=== PATIENT | male | born 1955 | race Two or more races ===

== ENCOUNTER 2020-11-10 14:37 | Inpatient (IN) | payer MEDICAID, SELFPAY ==
[2020-11-10 15:49] VITALS: BMI 25.7
[2020-11-10 16:38] LABS: Glucose, Whole Blood 236 mg/dL (60-115)
[2020-11-10] MEDS: Insulin Lispro 100 UNIT/ML 3 ML VIAL SUBCUT ×2 (17:43→21:55)
[2020-11-10 17:56] LABS: Cholesterol 204 mg/dL; HDL Cholesterol 31 mg/dL; LDL Cholesterol Calculated 128 mg/dl; Triglycerides 228 mg/dL
[2020-11-10 18:00] VITALS: BP 127/66; PULSE 99; RESP 16; TEMP 36.8; O2SAT 97
[2020-11-10] MEDS: NaPROXEN 500 MG TABLET PO (18:02)
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
[2020-11-10 21:11] LABS: Glucose, Whole Blood 176 mg/dL (60-115)
[2020-11-10] MEDS: traZODone HCL 50 MG TABLET PO (22:18)
[2020-11-11 07:24] LABS: Free T4 (Free Thyroxine) 0.94 ng/dL (0.71-1.85); Thyroid Stimulating Hormone 0.35 uIU/mL (0.32-4.0)
[2020-11-11 07:48] LABS: Estimated Average Glucose 174 mg/dL; Hemoglobin A1c % 7.7 %
[2020-11-11 09:00] VITALS: BP 143/66; PULSE 71; RESP 16; TEMP 36.4; O2SAT 98
[2020-11-11 09:02] VITALS: BP 127/66; PULSE 99; O2SAT 97
[2020-11-11 09:08] LABS: Glucose, Whole Blood 152 mg/dL (60-115)
[2020-11-11] MEDS: Insulin Lispro 100 UNIT/ML 3 ML VIAL SUBCUT ×3 (09:50→19:52)
[2020-11-11 10:11] LABS: Vitamin B12 540 pg/mL (200-900)
[2020-11-11] MEDS: Escitalopram Oxalate 10 MG TABLET PO (10:24)
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
[2020-11-11 12:36] LABS: Glucose, Whole Blood 245 mg/dL (60-115)
--- NOTE | 2020-11-11 13:36 | PC.NURSE ---
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
--- NOTE | 2020-11-11 15:11 | HO.HSGERICON ---
History of Present Illness Data of Consult Service Date: 11/11/20 Requesting physician: Jacqueline Tsai Primary Care Provider: Petra Alcantara NP HPI 65-year-old male with past medical history of diabetes who is a admitted to [facility] for PTSD and depression. Patient is Farsi speaking which I was able to speak to him in [facility]. He reports chronic right ear pain that is been going on for 3-4 years, he denies any changes. Reports chronic decreased hearing, he reports that he needs glasses but has now money to buy a new one. Denies any chest pain, no shortness of breath, no abdominal pain nausea or vomiting no diarrhea constipation. No urinary symptoms. No lower extremity edema. Vitals reviewed within normal range Done on admission reviewed no significant abnormality except a slightly elevated glucose Review of Systems Review of Systems: Yes all other systems are reviewed and are negative [facility] Medical History PTSD (post-traumatic stress disorder) Social History Household Members: Family and Children Household Members Other:: daughters and Housing: Unknown / Unable to assess Do you presently have visiting nurse or other home services: Yes ([facility] -[phone]) Patient Tobacco Use Status: Tobacco use Unknown Use of substances other than those prescribed or required for medical reasons: No Currently Displaying Signs/Symptoms of Drug Intoxication Withdrawal: No Any prior treatment program specific to substance use: No Have you been hit, kicked, punched, or otherwise hurt by someone within the past year? If so, by whom?: No Do you feel safe in your current relationship?: Yes Is there a partner from a previous relationship who is making you feel unsafe now?: No Are you made to feel afraid or neglected: No Advance Directives: No Advance Directives Information Provided: No Do you have thoughts of harming others: None Do you have a plan to hurt others: No Plan Recently lost weight without trying: Unsure Eating poorly because of decreased appetite: No Nutrition Risks: Diabetes new onset/Uncontrolled Poor oral hygiene: No service: No Sexual orientation: Straight/Heterosexual Meds Allergies Allergy/AdvReac Type Severity Reaction Status Date / Time No Known Allergies Allergy Verified 11/10/20 15:51 Active Medications: Current Medications Generic Name Dose Route Start Last Admin Trade Name Boq PRN Reason Stop Dose Admin Acetaminophen 650 mg 11/10/20 15:55 Acetaminophen 325 Mg Tablet PO Q6H PRN Headache/Pain Mild Scale (1-3) Al Hydroxide/Mg Hydroxide 30 ml 11/10/20 15:55 Magnesium Hydrox/Alum Hydrox 30 Ml Oral.Susp PO Q6H PRN Heartburn/Nausea Escitalopram Oxalate 10 mg 11/11/20 09:00 11/11/20 10:24 Escitalopram Oxalate 10 Mg Tablet PO 10 mg DAILY DUNIA Administration Hydroxyzine HCl 25 mg 11/10/20 15:55 Hydroxyzine Hcl 25 Mg Tablet PO Q6H PRN Anxiety Insulin Human Lispro 0 unit 11/10/20 21:00 11/11/20 12:38 Insulin Lispro 100 Unit/Ml 3 Ml Vial SUBCUT 4 unit QIDACHS [facility] Administration Protocol Magnesium Hydroxide 30 ml 11/10/20 15:55 Milk Of Magnesia 30 Ml Oral.Susp PO DAILY PRN Constipation Naproxen 500 mg 11/10/20 16:28 11/10/20 18:02 Naproxen 500 Mg Tablet PO 500 mg BID PRN Administration Pain, Moderate (Pain Scale 4-6 Trazodone HCl 50 mg 11/10/20 15:55 11/10/20 22:18 Trazodone Hcl 50 Mg Tablet PO 50 mg BEDTIME PRN Administration Insomnia Results Labs Labs: Laboratory Results - last 24 hr 11/10/20 11/10/20 11/10/20 16:33 17:19 17:19 POC Glucose 236 H Estimat Average Glucose 174 Hemoglobin A1c % 7.7 Triglycerides 228 Cholesterol 204 LDL Cholesterol, Calc 128 HDL Cholesterol 31 Vitamin B12 TSH Free T4 11/10/20 11/11/20 11/11/20 21:07 06:22 06:22 POC Glucose 176 H Estimat Average Glucose Hemoglobin A1c % Triglycerides Cholesterol LDL Cholesterol, Calc HDL Cholesterol Vitamin B12 540 TSH 0.35 Free T4 0.94 11/11/20 11/11/20 08:59 12:30 POC Glucose 152 H 245 H Estimat Average Glucose Hemoglobin A1c % Triglycerides Cholesterol LDL Cholesterol, Calc HDL Cholesterol Vitamin B12 TSH Free T4 Assessment and Plan (1) Diabetes: Status: Acute (2) Ear pain: Status: Acute 65-year-old male with past medical history of diabetes admitted for [facility] for management of PTSD # diabetes - continue low-dose sliding scale insulin - diabetic diet - patient's glucose does not appear to be significantly elevated - will continue to monitor with glucose POC QIDAC # PTSD and depression - management per psych team # ear pain - patient reports chronic ear pain for past 3-4 years - has significant wax - will order debrox ear drops thank you for this consutl
[2020-11-11 17:12] LABS: Glucose, Whole Blood 124 mg/dL (60-115)
[2020-11-11 18:20] VITALS: BP 131/60; PULSE 102; RESP 18; TEMP 36.6; O2SAT 97
[2020-11-11 19:51] LABS: Glucose, Whole Blood 233 mg/dL (60-115)
[2020-11-11] MEDS: Carbamide Peroxide 6.5% Otic 15 ML DRPBTL 5 DROP EAR-BOTH (20:19)
[2020-11-12 06:00] VITALS: BP 135/63; PULSE 73; RESP 18; TEMP 36.6; O2SAT 96
[2020-11-12 08:04] LABS: Glucose, Whole Blood 120 mg/dL (60-115)
[2020-11-12] MEDS: Escitalopram Oxalate 10 MG TABLET PO (08:18)
[2020-11-12] MEDS: Carbamide Peroxide 6.5% Otic 15 ML DRPBTL 5 DROP EAR-BOTH ×2 (08:34→20:06)
[2020-11-12 12:31] LABS: Glucose, Whole Blood 261 mg/dL (60-115)
[2020-11-12] MEDS: Insulin Lispro 100 UNIT/ML 3 ML VIAL SUBCUT (12:33)
--- NOTE | 2020-11-12 15:39 | HO.PSYCHPN ---
Subjective Subjective Date of Service: 11/12/20 Reason For Visit: Major Depressive Disorder Recurrent Subjective Notes: Conditional Voluntary Healthcare Proxy: No Guardianship: No Medical Problems Affecting Mental Status: No Interim History: Patient seen and discussed with team. Patient evaluated this morning with diplomatic interpreter/translator services and upon interview he reports I feel fine today. Says he only feels anxious when he thinks about stressors at home. He says he has a broken heart because his daughters have not called or visited and nobody needs him, feels he has nowhere to go. He says if he is not thinking about it, he is feeling a bit better. He knows that he has court on 11/16/2020 due to filing a restraining order, says he does not plan on going back to their apartment and would like to work with his SW at [facility] to get alternate housing. He has been eating, showering, attending to ADLs. He is med adherent and tolerating meds well. In the milieu, patient is safe and appropriate in behavior. Denies SI/SIB/HI upon inquiry. Denies irritability or assaultive ideation. Says he feels safe. Medication Compliance: Yes Side effects from medications: No Attending Groups: No Review of Systems He had an episode of hypoglycemia today, stating he felt dizzy and his heart was racing. His BG was 46 and he was given juice and crackers. He stated feeling increased anxiety due to this. A hospitalist consult was ordered due to his blood glucose being difficult to control per nurse report. He denies having hx of cardiac issues or SOB. No headache reported. He continues to report leg pain but is ambulating with a cane. Mental Status Exam Mental Status Exam Narrative: Well groomed, good hygiene, normal body habitus, in hospital gown, lying down. Good eye contact, attentive. No Tics or Tremors. No abnormal involuntary movements. Calm, cooperative, engaged. Non-pressured speech, spontaneous with regular rate and rhythm, normal volume and prosody. No prolonged speech latency or dysarthria. Mood is ?low,? affect is euthymic. Denies SI/SIB/HI upon inquiry. Denies A/VH or delusional thought content. Thoughts are coherent, organized. No known cognitive or memory impairment, although he reports poor recent memory i.e. does not remember what he had for breakfast. Insight/ Judgment fair and adequate. Diagnostics Vital Signs (24Hr): Vital Signs - 24 hr 11/11/20 18:20 11/12/20 06:00 Temperature 97.9 F 97.9 F Pulse Rate 102 H 73 Respiratory Rate 18 18 Blood Pressure 131/60 135/63 Pulse Oximetry 97 96 Body Mass Index 25.7 Labs Labs: Laboratory Results - last 48 hr 11/10/20 11/10/20 11/10/20 16:33 17:19 17:19 POC Glucose 236 H Estimat Average Glucose 174 Hemoglobin A1c % 7.7 Triglycerides 228 Cholesterol 204 LDL Cholesterol, Calc 128 HDL Cholesterol 31 Vitamin B12 TSH Free T4 11/10/20 11/11/20 11/11/20 21:07 06:22 06:22 POC Glucose 176 H Estimat Average Glucose Hemoglobin A1c % Triglycerides Cholesterol LDL Cholesterol, Calc HDL Cholesterol Vitamin B12 540 TSH 0.35 Free T4 0.94 11/11/20 11/11/20 11/11/20 08:59 12:30 17:07 POC Glucose 152 H 245 H 124 H Estimat Average Glucose Hemoglobin A1c % Triglycerides Cholesterol LDL Cholesterol, Calc HDL Cholesterol Vitamin B12 TSH Free T4 11/11/20 11/12/20 11/12/20 19:46 07:59 12:21 POC Glucose 233 H 120 H 261 H Estimat Average Glucose Hemoglobin A1c % Triglycerides Cholesterol LDL Cholesterol, Calc HDL Cholesterol Vitamin B12 TSH Free T4 Medications Medications Current Medications Generic Name Dose Route Start Last Admin Trade Name Freq PRN Reason Stop Dose Admin Acetaminophen 650 mg 11/10/20 15:55 Acetaminophen 325 Mg Tablet PO Q6H PRN Headache/Pain Mild Scale (1-3) Al Hydroxide/Mg Hydroxide 30 ml 11/10/20 15:55 Magnesium Hydrox/Alum Hydrox 30 Ml Oral.Susp PO Q6H PRN Heartburn/Nausea Carbamide Peroxide 5 drop 11/11/20 21:00 11/12/20 08:34 Carbamide Peroxide 6.5% Otic 15 Ml Drpbtl EAR-BOTH 11/15/20 15:23 5 drop BID DUNIA Administration Escitalopram Oxalate 10 mg 11/11/20 09:00 11/12/20 08:18 Escitalopram Oxalate 10 Mg Tablet PO 10 mg DAILY DUNIA Administration Hydroxyzine HCl 25 mg 11/10/20 15:55 Hydroxyzine Hcl 25 Mg Tablet PO Q6H PRN Anxiety Insulin Human Lispro 0 unit 11/10/20 21:00 11/12/20 12:33 Insulin Lispro 100 Unit/Ml 3 Ml Vial SUBCUT 6 unit QIDACHS [facility] Administration Protocol Magnesium Hydroxide 30 ml 11/10/20 15:55 Milk Of Magnesia 30 Ml Oral.Susp PO DAILY PRN Constipation Naproxen 500 mg 11/10/20 16:28 11/10/20 18:02 Naproxen 500 Mg Tablet PO 500 mg BID PRN Administration Pain, Moderate (Pain Scale 4-6 Trazodone HCl 50 mg 11/10/20 15:55 11/10/20 22:18 Trazodone Hcl 50 Mg Tablet PO 50 mg BEDTIME PRN Administration Insomnia Allergies Allergies Allergy/AdvReac Type Severity Reaction Status Date / Time No Known Allergies Allergy Verified 11/10/20 15:51 Assessment & Plan Assessment & Plan (1) Diabetes: Status: Acute Code(s): E11.9 - Type 2 diabetes mellitus without complications (2) Ear pain: Status: Acute Code(s): H92.09 - Otalgia, unspecified ear (3) Depression: Status: Acute Code(s): F32.9 - Major depressive disorder, single episode, unspecified (4) PTSD (post-traumatic stress disorder): Status: Acute Code(s): F43.10 - Post-traumatic stress disorder, unspecified Assessment and Plan: Bennett is a 65 year old male who presents with symptoms of depression, irritability, anxiety, flashbacks, hyperarousal, lack of sleep, perseverative thoughts, and nightmares. He [place] [facility] [place] a verbal altercation with his in the context of ongoing marital issues, financial stress, housing instability, and lack of psychiatric treatment. He does not speak Kyrgyz and has language barriers living in [place] He has no past psychiatric treatment, [place] with his and three daughters. He has past trauma [place], [place]. He has multiple co-morbid medical issues including insulin dependent diabetes, hx of head injury, and leg pain. He is currently accepting medication management for symptoms of PTSD and insomnia. Lexapro was started at [facility] ED. 11/12: Bennett reports positive benefit on medications, tolerating them well. Continues to endorse sx of anxiety and feeling sad when he thinks about his stressors. Sleep is improved on trazodone. Plan: 1. continue on lexapro 10 mg QD for sx of PTSD and trazodone 50 mg QHS PRN for insomnia. Monitor response to medications. 2. Monitor for safety in the milieu. 3. will work on housing, legal issues 4. Discharge on stabilization. Patient seen. Chart reviewed. Discussed with team. Greater than 50% of the session was spent on counseling and/or coordination of care Patient educated on: medication risk/benefits Reason for contiued inpatient stay Substantial Risk for: med/psych decompensation
[2020-11-12 15:49] LABS: Glucose, Whole Blood 140 mg/dL (60-115)
[2020-11-12 15:49] LABS: Glucose, Whole Blood 46 mg/dL (60-115)
[2020-11-12 15:49] LABS: Glucose, Whole Blood 82 mg/dL (60-115)
--- NOTE | 2020-11-12 15:57 | PC.NURSE ---
At 1505 patient was noted by MHC to be pointing to his head and chest. MHC took VS: BP 130/64, HR 80, O2 SAT 98%, Temp 98.0 f, RR 18. Terese patient accounting representative utilized, PT reported dizziness and decreased vision. POC checked : 46 at 1512. Patient was given 2 servings of OJ and a turkey sandwich, rechecked POC at 1524: 82, at that time patient indicated some relief from dizziness. Patient ate another turkey sandwich and drank another oj - recheck POC at 1542: 140. At that time patient was reporting vision at baseline and dizziness relieved. Jacqueline Tsai NP informed, hospitalist consult ordered. Dr Bucio informed,
[2020-11-12 17:31] LABS: Glucose, Whole Blood 242 mg/dL (60-115)
--- NOTE | 2020-11-12 17:37 | PC.NURSE ---
I spoke with Dr Bucio regarding today's uncontrolled blood sugars. He told me to hold insulin prior to evening meal now and reassess POC at HS
[2020-11-12 18:00] VITALS: BP 132/66; PULSE 85; RESP 16; TEMP 36.6; O2SAT 98
[2020-11-12 20:18] LABS: Glucose, Whole Blood 213 mg/dL (60-115)
[2020-11-13 08:58] VITALS: BP 155/75; PULSE 73; RESP 16; TEMP 36.8; O2SAT 98
[2020-11-13 08:59] LABS: Glucose, Whole Blood 134 mg/dL (60-115)
[2020-11-13] MEDS: Escitalopram Oxalate 10 MG TABLET PO (09:01)
[2020-11-13] MEDS: Carbamide Peroxide 6.5% Otic 15 ML DRPBTL 5 DROP EAR-BOTH ×2 (09:01→20:26)
[2020-11-13 12:38] LABS: Glucose, Whole Blood 221 mg/dL (60-115)
[2020-11-13] MEDS: Insulin Lispro 100 UNIT/ML 3 ML VIAL SUBCUT ×2 (12:45→17:42)
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
[2020-11-13 17:38] LABS: Glucose, Whole Blood 197 mg/dL (60-115)
[2020-11-13 20:25] LABS: Glucose, Whole Blood 214 mg/dL (60-115)
[2020-11-13 20:32] VITALS: BP 183/79; PULSE 73; TEMP 36.7
[2020-11-14 08:54] LABS: Glucose, Whole Blood 128 mg/dL (60-115)
[2020-11-14 09:28] VITALS: BP 132/65; PULSE 71; RESP 16; TEMP 36.6; O2SAT 98
[2020-11-14] MEDS: Escitalopram Oxalate 10 MG TABLET PO (09:36)
[2020-11-14] MEDS: Carbamide Peroxide 6.5% Otic 15 ML DRPBTL 5 DROP EAR-BOTH ×2 (09:36→22:11)
[2020-11-14 12:51] LABS: Glucose, Whole Blood 207 mg/dL (60-115)
[2020-11-14] MEDS: Insulin Lispro 100 UNIT/ML 3 ML VIAL SUBCUT ×2 (12:54→22:09)
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
[2020-11-14 17:45] LABS: Glucose, Whole Blood 145 mg/dL (60-115)
[2020-11-14 20:21] VITALS: BP 152/71; PULSE 84; RESP 20; TEMP 36.7; O2SAT 93
[2020-11-14 21:59] LABS: Glucose, Whole Blood 271 mg/dL (60-115)
[2020-11-14] MEDS: traZODone HCL 50 MG TABLET PO (22:12)
[2020-11-15 06:00] VITALS: BP 124/67; PULSE 89; RESP 16; TEMP 36.9; O2SAT 96
[2020-11-15 08:17] LABS: Glucose, Whole Blood 113 mg/dL (60-115)
[2020-11-15] MEDS: Escitalopram Oxalate 10 MG TABLET PO (09:09)
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
[2020-11-15 13:25] LABS: Glucose, Whole Blood 202 mg/dL (60-115)
[2020-11-15] MEDS: Insulin Lispro 100 UNIT/ML 3 ML VIAL SUBCUT ×2 (13:26→18:02)
[2020-11-15] MEDS: Carbamide Peroxide 6.5% Otic 15 ML DRPBTL 5 DROP EAR-BOTH (14:06)
[2020-11-15 17:34] LABS: Glucose, Whole Blood 174 mg/dL (60-115)
[2020-11-15 20:00] VITALS: BP 134/63; PULSE 80; RESP 20; TEMP 36.8; O2SAT 97
[2020-11-15 20:28] LABS: Glucose, Whole Blood 102 mg/dL (60-115)
[2020-11-15] MEDS: traZODone HCL 50 MG TABLET PO (21:18)
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
[2020-11-16 08:15] VITALS: BP 161/72; PULSE 84; RESP 20; TEMP 36.7; O2SAT 96
[2020-11-16] MEDS: Escitalopram Oxalate 10 MG TABLET PO (08:24)
[2020-11-16 10:33] LABS: Glucose, Whole Blood 125 mg/dL (60-115)
[2020-11-16 12:14] LABS: Glucose, Whole Blood 247 mg/dL (60-115)
[2020-11-16] MEDS: Insulin Lispro 100 UNIT/ML 3 ML VIAL SUBCUT ×2 (12:22→21:17)
[2020-11-16] MEDS: NaPROXEN 500 MG TABLET PO (12:23)
--- NOTE | 2020-11-16 13:40 | PC.NURSE ---
Brief evaluation initially on arrival, pt pleasant. cooperative w/ care. Prior to lunch pt assessed w/ kersey department supervisor present. Pt reports sleeplessness, generalized pain r/t to lack of sleep. Pt denies HI, reports some hopeless thoughts re: situation w/ and housing but also appears to be future oriented, stating 'I just want some peace, then I will be fine.' Pt hopeful that if from , he will meet someone else.
[2020-11-16 16:52] LABS: Glucose, Whole Blood 109 mg/dL (60-115)
[2020-11-16 21:16] LABS: Glucose, Whole Blood 232 mg/dL (60-115)
[2020-11-16] MEDS: traZODone HCL 50 MG TABLET PO (21:19)
[2020-11-16] MEDS: Acetaminophen 325 MG TABLET 650 MG PO (21:43)
[2020-11-16 21:46] VITALS: BP 146/68; PULSE 91; TEMP 36.8; O2SAT 91
--- NOTE | 2020-11-17 08:19 | P.PNPSI_ITS ---
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 Pt with brighter affect thankful about care provided by nursing. He reports tooth pain relief with tylenol. States he has not been to dentist in 2 years. No signs of infection. He reports he wouldn't hurt a fly and not sure why is filing for restraining order. He states he never wanted to her and that it was an arrange marriage. He understands there is a restraining order, he does not plan to go to the house nor contact . He denies SI/HI. He does note he doesn't have any support from family or friends in the [place]. He does note feeling lonely now that he doesn't have support from nor children. He has been mostly in his bed. No behavioral concerns. Review of Systems Review of Systems Yes all other systems are reviewed and are negative Mental Status Exam Mental Status Exam Narrative: Well groomed, good hygiene, normal body habitus, sitting in bed. Good eye contact, attentive. No Tics or Tremors. No abnormal involuntary movements. somewhat excited and hypermotoric, cooperative, engaged. spontaneous speech, increased in amount, with regular rate and rhythm, normal volume and prosody. decr speech latency. Mood is euthymic, affect is full range, hyper-intense, mod- labile. Thoughts appear to be coherent, organized. Diagnostics Vital Signs (24Hr): Vital Signs - 24 hr 11/19/20 08:54 11/19/20 23:03 Temperature 98.0 F 97.8 F Pulse Rate 71 89 Respiratory Rate 18 Blood Pressure 129/67 144/79 H Pulse Oximetry 97 Body Mass Index 25.7 Labs Labs: Laboratory Results - last 48 hr 11/18/20 11/18/20 11/18/20 08:12 12:29 16:59 POC Glucose 133 H 284 H 191 H 11/18/20 11/19/20 11/19/20 20:24 08:47 12:32 POC Glucose 254 H 145 H 281 H 11/19/20 11/19/20 17:42 22:00 POC Glucose 161 H 257 H Medications Medications Current Medications Generic Name Dose Route Start Last Admin Trade Name Freq PRN Reason Stop Dose Admin Acetaminophen 650 mg 11/10/20 15:55 08/13/21 22:02 Acetaminophen 325 Mg Tablet PO 650 mg Q6H PRN Administration Headache/Pain Mild Scale (1-3) Al Hydroxide/Mg Hydroxide 30 ml 11/10/20 15:55 11/18/20 17:20 Magnesium Hydrox/Alum Hydrox 30 Ml Oral.Susp PO 30 ml Q6H PRN Administration Heartburn/Nausea Escitalopram Oxalate 10 mg 11/11/20 09:00 11/19/20 08:37 Escitalopram Oxalate 10 Mg Tablet PO 10 mg DAILY DUNIA Administration Hydroxyzine HCl 25 mg 11/10/20 15:55 Hydroxyzine Hcl 25 Mg Tablet PO Q6H PRN Anxiety Insulin Human Lispro 0 unit 11/10/20 21:00 11/19/20 22:10 Insulin Lispro 100 Unit/Ml 3 Ml Vial SUBCUT 10 unit QIDACHS [facility] Administration Protocol Magnesium Hydroxide 30 ml 11/10/20 15:55 11/17/20 13:59 Milk Of Magnesia 30 Ml Oral.Susp PO 30 ml DAILY PRN Administration Constipation Naproxen 500 mg 11/10/20 16:28 11/16/20 12:23 Naproxen 500 Mg Tablet PO 500 mg BID PRN Administration Pain, Moderate (Pain Scale 4-6 Trazodone HCl 100 mg 11/17/20 21:00 11/19/20 22:02 Trazodone Hcl 100 Mg Tablet PO 100 mg BEDTIME DUNIA Administration Allergies Allergies Allergy/AdvReac Type Severity Reaction Status Date / Time No Known Allergies Allergy Verified 11/10/20 15:51 Assessment & Plan Assessment & Plan (1) Depression: Status: Acute Code(s): F32.9 - Major depressive disorder, single episode, unspecified (2) PTSD (post-traumatic stress disorder): Status: Acute Code(s): F43.10 - Post-traumatic stress disorder, unspecified (3) Diabetes: Status: Acute Code(s): E11.9 - Type 2 diabetes mellitus without complications (4) Ear pain: Status: Acute Code(s): H92.09 - Otalgia, unspecified ear Assessment and Plan: Bennett is a 65 year old male who presents with symptoms of depression, irritability, anxiety, flashbacks, hyperarousal, lack of sleep, perseverative thoughts, and nightmares. He was brought to [facility] following a verbal altercation with his in the context of ongoing marital issues, financial stress, housing instability, and lack of psychiatric treatment. He does not speak Yemeni and has language barriers living in [place] He has no past psychiatric treatment, [place] with his and three daughters. He has past trauma [place], [place]. He has multiple co-morbid medical issues including insulin dependent diabetes, hx of head injury, and leg pain. He is currently accepting medication management for symptoms of PTSD and insomnia. Lexapro was started at [facility] ED. 11/12: Bennett reports positive benefit on medications, tolerating them well. Continues to endorse sx of anxiety and feeling sad when he thinks about his stressors. Sleep is improved on trazodone. Plan: 1. continue on lexapro 10 mg QD for sx of PTSD and trazodone 50 mg QHS PRN for insomnia. Monitor response to medications. 2. Monitor for safety in the milieu. 3. SW will work on housing, legal issues 4. Discharge on stabilization. Patient seen. Chart reviewed. Discussed with team. Greater than 50% of the session was spent on counseling and/or coordination of c are Reason for contiued inpatient stay Substantial Risk for: harm to self and harm to others
[2020-11-17 08:30] VITALS: BP 120/67; PULSE 72; RESP 16; TEMP 36.6; O2SAT 98
[2020-11-17 08:36] LABS: Glucose, Whole Blood 116 mg/dL (60-115)
[2020-11-17] MEDS: Escitalopram Oxalate 10 MG TABLET PO (09:00)
[2020-11-17] MEDS: Acetaminophen 325 MG TABLET 650 MG PO (09:18)
[2020-11-17 12:18] LABS: Glucose, Whole Blood 260 mg/dL (60-115)
[2020-11-17] MEDS: Insulin Lispro 100 UNIT/ML 3 ML VIAL SUBCUT ×2 (12:47→17:47)
[2020-11-17] MEDS: Milk of Magnesia 30 ML ORAL.SUSP PO (13:59)
[2020-11-17 17:29] LABS: Glucose, Whole Blood 169 mg/dL (60-115)
[2020-11-17 20:57] LABS: Glucose, Whole Blood 157 mg/dL (60-115)
[2020-11-17] MEDS: traZODone HCL 100 MG TABLET PO (20:57)
[2020-11-17 20:59] VITALS: BP 162/75; PULSE 77; TEMP 36.8; O2SAT 96
[2020-11-18 08:15] VITALS: BP 163/76; PULSE 81; RESP 18; TEMP 36.7; O2SAT 96
[2020-11-18] MEDS: Escitalopram Oxalate 10 MG TABLET PO (08:17)
--- NOTE | 2020-11-18 08:21 | P.PNPSI_ITS ---
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 Pt with brighter affect thankful about care provided by nursing and in unit. He reports tooth pain relief with tylenol. States he has not been to dentist in 2 years. No signs of infection. He reports he wouldn't hurt a fly and not sure why is filing for restraining order. He states he never wanted to her and that it was an arrange marriage. He understands there is a restraining order, he does not plan to go to the house nor contact . He denies SI/HI. He does note he doesn't have any support from family or friends [place] He does note feeling lonely now that he doesn't have support from nor children. He has been mostly in his bed. No behavioral concerns. Review of Systems Review of Systems Yes all other systems are reviewed and are negative Mental Status Exam Mental Status Exam Narrative: Well groomed, good hygiene, normal body habitus, sitting in bed. Good eye contact, attentive. No Tics or Tremors. No abnormal involuntary movements. somewhat excited and hypermotoric, cooperative, engaged. spontaneous speech, increased in amount, with regular rate and rhythm, normal volume and prosody. decr speech latency. Mood is euthymic, affect is full range, hyper-intense, mod- labile. Thoughts appear to be coherent, organized. Diagnostics Vital Signs (24Hr): Vital Signs - 24 hr 11/19/20 08:54 11/19/20 23:03 Temperature 98.0 F 97.8 F Pulse Rate 71 89 Respiratory Rate 18 Blood Pressure 129/67 144/79 H Pulse Oximetry 97 Body Mass Index 25.7 Labs Labs: Laboratory Results - last 48 hr 11/18/20 11/18/20 11/18/20 08:12 12:29 16:59 POC Glucose 133 H 284 H 191 H 11/18/20 11/19/20 11/19/20 20:24 08:47 12:32 POC Glucose 254 H 145 H 281 H 11/19/20 11/19/20 17:42 22:00 POC Glucose 161 H 257 H Medications Medications Current Medications Generic Name Dose Route Start Last Admin Trade Name Freq PRN Reason Stop Dose Admin Acetaminophen 650 mg 11/10/20 15:55 11/19/20 22:02 Acetaminophen 325 Mg Tablet PO 650 mg Q6H PRN Administration Headache/Pain Mild Scale (1-3) Al Hydroxide/Mg Hydroxide 30 ml 11/10/20 15:55 11/18/20 17:20 Magnesium Hydrox/Alum Hydrox 30 Ml Oral.Susp PO 30 ml Q6H PRN Administration Heartburn/Nausea Escitalopram Oxalate 10 mg 11/11/20 09:00 11/19/20 08:37 Escitalopram Oxalate 10 Mg Tablet PO 10 mg DAILY DUNIA Administration Hydroxyzine HCl 25 mg 11/10/20 15:55 Hydroxyzine Hcl 25 Mg Tablet PO Q6H PRN Anxiety Insulin Human Lispro 0 unit 11/10/20 21:00 11/19/20 22:10 Insulin Lispro 100 Unit/Ml 3 Ml Vial SUBCUT 10 unit QIDACHS [facility] Administration Protocol Magnesium Hydroxide 30 ml 11/10/20 15:55 11/17/20 13:59 Milk Of Magnesia 30 Ml Oral.Susp PO 30 ml DAILY PRN Administration Constipation Naproxen 500 mg 11/10/20 16:28 11/16/20 12:23 Naproxen 500 Mg Tablet PO 500 mg BID PRN Administration Pain, Moderate (Pain Scale 4-6 Trazodone HCl 100 mg 11/17/20 21:00 11/19/20 22:02 Trazodone Hcl 100 Mg Tablet PO 100 mg BEDTIME DUNIA Administration Allergies Allergies Allergy/AdvReac Type Severity Reaction Status Date / Time No Known Allergies Allergy Verified 11/10/20 15:51 Assessment & Plan Assessment & Plan (1) Depression: Status: Acute Code(s): F32.9 - Major depressive disorder, single episode, unspecified (2) PTSD (post-traumatic stress disorder): Status: Acute Code(s): F43.10 - Post-traumatic stress disorder, unspecified (3) Diabetes: Status: Acute Code(s): E11.9 - Type 2 diabetes mellitus without complications (4) Ear pain: Status: Acute Code(s): H92.09 - Otalgia, unspecified ear Assessment and Plan: Bennett is a 65 year old male who presents with symptoms of depression, irritability, anxiety, flashbacks, hyperarousal, lack of sleep, perseverative thoughts, and nightmares. He was brought to [facility] following a verbal altercation with his in the context of ongoing marital issues, financial stress, housing instability, and lack of psychiatric treatment. He does not speak Tristanian and has language barriers [place] He has no past psychiatric treatment, [place] with his and three daughters. [place] has [place], [place]. He has multiple co-morbid medical issues including insulin dependent diabetes, hx of head injury, and leg pain. He is currently accepting medication management for symptoms of PTSD and insomnia. Lexapro was started at [facility] ED. 11/12: Bennett reports positive benefit on medications, tolerating them well. Continues to endorse sx of anxiety and feeling sad when he thinks about his stressors. Sleep is improved on trazodone. Plan: 1. continue on lexapro 10 mg QD for sx of PTSD and trazodone 50 mg QHS PRN for insomnia. Monitor response to medications. 2. Monitor for safety in the milieu. 3. SW will work on housing, legal issues 4. Discharge on stabilization. Patient seen. Chart reviewed. Discussed with team. Greater than 50% of the session was spent on counseling and/or coordination of care Reason for contiued inpatient stay Substantial Risk for: harm to self and harm to others
--- NOTE | 2020-11-18 08:22 | P.PNPSI_ITS ---
Subjective Subjective Date of Service: 11/20/20 Reason For Visit: Major Depressive Disorder Recurrent Interim History: Pt seen with coater associate (voice through ipad). Pt continues to present with brighter affect, thankful about care provided by nursing and in unit. He reports tooth pain relief with tylenol. States he has not been to dentist in 2 years. No signs of infection. He reports he wouldn't hurt a fly and not sure why is filing for restraining order. He states he never wanted to her and that it was an arrange marriage. He understands there is a restraining order, he does not plan to go to the house nor contact . He denies SI/HI. He does note he doesn't have any support from family or friends [place]. He does note feeling lonely now that he doesn't have support from nor children. He has been mostly in his bed. No behavioral concerns. Review of Systems Review of Systems Yes all other systems are reviewed and are negative Mental Status Exam Mental Status Exam Narrative: Well groomed, good hygiene, normal body habitus, sitting in bed. Good eye contact, attentive. No Tics or Tremors. No abnormal involuntary movements. Behavior: cooperative, engaged. spontaneous speech, increased in amount, with regular rate and rhythm, normal volume and prosody. Mood is euthymic, affect is full range. Thoughts appear to be coherent, organized. Diagnostics Vital Signs (24Hr): Vital Signs - 24 hr 11/19/20 08:54 11/19/20 23:03 Temperature 98.0 F 97.8 F Pulse Rate 71 89 Respiratory Rate 18 Blood Pressure 129/67 144/79 H Pulse Oximetry 97 Body Mass Index 25.7 Labs Labs: Laboratory Results - last 48 hr 11/18/20 11/18/20 11/18/20 08:12 12:29 16:59 POC Glucose 133 H 284 H 191 H 11/18/20 11/19/20 11/19/20 20:24 08:47 12:32 POC Glucose 254 H 145 H 281 H 11/19/20 11/19/20 17:42 22:00 POC Glucose 161 H 257 H Medications Medications Current Medications Generic Name Dose Route Start Last Admin Trade Name Freq PRN Reason Stop Dose Admin Acetaminophen 650 mg 11/10/20 15:55 11/19/20 22:02 Acetaminophen 325 Mg Tablet PO 650 mg Q6H PRN Administration Headache/Pain Mild Scale (1-3) Al Hydroxide/Mg Hydroxide 30 ml 11/10/20 15:55 11/18/20 17:20 Magnesium Hydrox/Alum Hydrox 30 Ml Oral.Susp PO 30 ml Q6H PRN Administration Heartburn/Nausea Escitalopram Oxalate 10 mg 11/11/20 09:00 11/19/20 08:37 Escitalopram Oxalate 10 Mg Tablet PO 10 mg DAILY DUNIA Administration Hydroxyzine HCl 25 mg 11/10/20 15:55 Hydroxyzine Hcl 25 Mg Tablet PO Q6H PRN Anxiety Insulin Human Lispro 0 unit 11/10/20 21:00 11/19/20 22:10 Insulin Lispro 100 Unit/Ml 3 Ml Vial SUBCUT 10 unit QIDACHS DUNIA Administration Protocol Magnesium Hydroxide 30 ml 11/10/20 15:55 11/17/20 13:59 Milk Of Magnesia 30 Ml Oral.Susp PO 30 ml DAILY PRN Administration Constipation Naproxen 500 mg 11/10/20 16:28 11/16/20 12:23 Naproxen 500 Mg Tablet PO 500 mg BID PRN Administration Pain, Moderate (Pain Scale 4-6 Trazodone HCl 100 mg 11/17/20 21:00 11/19/20 22:02 Trazodone Hcl 100 Mg Tablet PO 100 mg BEDTIME DUNIA Administration Allergies Allergies Allergy/AdvReac Type Severity Reaction Status Date / Time No Known Allergies Allergy Verified 11/10/20 15:51 Assessment & Plan Assessment & Plan (1) Depression: Status: Acute Code(s): F32.9 - Major depressive disorder, single episode, unspecified (2) PTSD (post-traumatic stress disorder): Status: Acute Code(s): F43.10 - Post-traumatic stress disorder, unspecified (3) Diabetes: Status: Acute Code(s): E11.9 - Type 2 diabetes mellitus without complications (4) Ear pain: Status: Acute Code(s): H92.09 - Otalgia, unspecified ear Assessment and Plan: Bennett is a 65 year old male who presents with symptoms of depression, irritability, anxiety, flashbacks, hyperarousal, lack of sleep, perseverative thoughts, and nightmares. He was brought to [facility] following a verbal altercation with his in the context of ongoing marital issues, financial stress, housing instability, and lack of psychiatric treatment. He does not speak Occitan and has language barriers living [place] He has no past psychiatric treatment, [place] with his and three daughters. He has past trauma [place], [place]. He has multiple co-morbid medical issues including insulin dependent diabetes, hx of head injury, and leg pain. He is currently accepting medication management for symptoms of PTSD and insomnia. Lexapro was started at [facility] ED. 11/12: Bennett reports positive benefit on medications, tolerating them well. Continues to endorse sx of anxiety and feeling sad when he thinks about his stressors. Sleep is improved on trazodone. Plan: 1. continue on lexapro 10 mg QD for sx of PTSD and trazodone 50 mg QHS PRN for insomnia. Monitor response to medications. 2. Monitor for safety in the milieu. 3. SW will work on housing, legal issues 4. Discharge on stabilization. Patient seen. Chart reviewed. Discussed with team. Greater than 50% of the session was spent on counseling and/or coordination of care Reason for contiued inpatient stay Substantial Risk for: harm to self
[2020-11-18 08:23] LABS: Glucose, Whole Blood 133 mg/dL (60-115)
[2020-11-18] MEDS: Acetaminophen 325 MG TABLET 650 MG PO ×2 (08:24→17:07)
[2020-11-18] MEDS: Magnesium Citrate 300 ML SOLUTION PO (10:41)
[2020-11-18 12:35] LABS: Glucose, Whole Blood 284 mg/dL (60-115)
[2020-11-18] MEDS: Insulin Lispro 100 UNIT/ML 3 ML VIAL SUBCUT ×3 (12:36→21:18)
[2020-11-18 17:05] LABS: Glucose, Whole Blood 191 mg/dL (60-115)
[2020-11-18] MEDS: Magnesium Hydrox/Alum Hydrox 30 ML ORAL.SUSP PO (17:20)
[2020-11-18 18:00] VITALS: BP 123/58; PULSE 79; RESP 16; TEMP 36.9; O2SAT 97
[2020-11-18 20:28] LABS: Glucose, Whole Blood 254 mg/dL (60-115)
[2020-11-18] MEDS: traZODone HCL 100 MG TABLET PO (21:19)
--- NOTE | 2020-11-19 08:23 | P.PNPSI_ITS ---
Subjective Subjective Date of Service: 11/20/20 Reason For Visit: Major Depressive Disorder Recurrent Interim History: Pt seen with aerial photograph interpreter (voice through ipad). Pt continues to present with brighter affect, thankful about care provided by nursing and in unit. He reports tooth pain relief with tylenol. States he has not been to dentist in 2 years. No signs of infection. He reports he wouldn't hurt a fly and not sure why is filing for restraining order. He states he never wanted to her and that it was an arrange marriage. He understands there is a restraining order, he does not plan to go to the house nor contact . He denies SI/HI. He does note he doesn't have any support from family or [place] He does note feeling lonely now that he doesn't have support from nor children. He has been mostly in his bed. No behavioral concerns. Housing is a concern- collateral information gathered from his daughter Melanie who reports pt threatening not only but daughters. this daughter very scared of him. family does not want anything to do with him and do worry that if he returns home he will hurt someone. daugther reports pt was making forceful sexual advances towards mother, which mother was fearful of. Review of Systems Review of Systems Yes all other systems are reviewed and are negative Mental Status Exam Mental Status Exam Narrative: Well groomed, good hygiene, normal body habitus, sitting in bed. Good eye contact, attentive. No Tics or Tremors. No abnormal involuntary movements. Behavior: cooperative, engaged. spontaneous speech, increased in amount, with regular rate and rhythm, normal volume and prosody. Mood is euthymic, affect is full range. Thoughts appear to be coherent, organized. Diagnostics Vital Signs (24Hr): Vital Signs - 24 hr 11/19/20 08:54 11/19/20 23:03 Temperature 98.0 F 97.8 F Pulse Rate 71 89 Respiratory Rate 18 Blood Pressure 129/67 144/79 H Pulse Oximetry 97 Body Mass Index 25.7 Labs Labs: Laboratory Results - last 48 hr 11/18/20 11/18/20 11/18/20 08:12 12:29 16:59 POC Glucose 133 H 284 H 191 H 11/18/20 11/19/20 11/19/20 20:24 08:47 12:32 POC Glucose 254 H 145 H 281 H 11/19/20 11/19/20 17:42 22:00 POC Glucose 161 H 257 H Medications Medications Current Medications Generic Name Dose Route Start Last Admin Trade Name Arron PRN Reason Stop Dose Admin Acetaminophen 650 mg 11/10/20 15:55 11/19/20 22:02 Acetaminophen 325 Mg Tablet PO 650 mg Q6H PRN Administration Headache/Pain Mild Scale (1-3) Al Hydroxide/Mg Hydroxide 30 ml 11/10/20 15:55 11/18/20 17:20 Magnesium Hydrox/Alum Hydrox 30 Ml Oral.Susp PO 30 ml Q6H PRN Administration Heartburn/Nausea Escitalopram Oxalate 10 mg 11/11/20 09:00 11/19/20 08:37 Escitalopram Oxalate 10 Mg Tablet PO 10 mg DAILY DUNIA Administration Hydroxyzine HCl 25 mg 11/10/20 15:55 Hydroxyzine Hcl 25 Mg Tablet PO Q6H PRN Anxiety Insulin Human Lispro 0 unit 11/10/20 21:00 11/19/20 22:10 Insulin Lispro 100 Unit/Ml 3 Ml Vial SUBCUT 10 unit QIDACHS DUNIA Administration Protocol Magnesium Hydroxide 30 ml 11/10/20 15:55 11/17/20 13:59 Milk Of Magnesia 30 Ml Oral.Susp PO 30 ml DAILY PRN Administration Constipation Naproxen 500 mg 11/10/20 16:28 11/16/20 12:23 Naproxen 500 Mg Tablet PO 500 mg BID PRN Administration Pain, Moderate (Pain Scale 4-6 Trazodone HCl 100 mg 11/17/20 21:00 11/19/20 22:02 Trazodone Hcl 100 Mg Tablet PO 100 mg BEDTIME DUNIA Administration Allergies Allergies Allergy/AdvReac Type Severity Reaction Status Date / Time No Known Allergies Allergy Verified 11/10/20 15:51 Assessment & Plan Assessment & Plan (1) Depression: Status: Acute Code(s): F32.9 - Major depressive disorder, single episode, unspecified (2) PTSD (post-traumatic stress disorder): Status: Acute Code(s): F43.10 - Post-traumatic stress disorder, unspecified (3) Diabetes: Status: Acute Code(s): E11.9 - Type 2 diabetes mellitus without complications (4) Ear pain: Status: Acute Code(s): H92.09 - Otalgia, unspecified ear Assessment and Plan: Bennett is a 65 year old male who presents with symptoms of depression, irritability, anxiety, flashbacks, hyperarousal, lack of sleep, perseverative thoughts, and nightmares. He was brought [place] [facility] [place] a verbal altercation with his in the context of ongoing marital issues, financial stress, housing instability, and lack of psychiatric treatment. He does not speak Norwegian and has language barriers living in [place] He has no past psychiatric treatment, [place] with his and three daughters. He has past trauma history from [place] [facility], [place] by [place]. He has multiple co-morbid medical issues including insulin dependent diabetes, hx of head injury, and leg pain. He is currently accepting medication management for symptoms of PTSD and insomnia. Lexapro was started at [facility] ED. 11/12: Bennett reports positive benefit on medications, tolerating them well. Continues to endorse sx of anxiety and feeling sad when he thinks about his stressors. Sleep is improved on trazodone. Plan: 1. continue on lexapro 10 mg QD for sx of PTSD and trazodone 50 mg QHS PRN for insomnia. Monitor response to medications. 2. Monitor for safety in the milieu. 3. will work on housing, legal issues 4. Discharge on stabilization. Patient seen. Chart reviewed. Discussed with team. Greater than 50% of the session was spent on counseling and/or coordination of care Reason for contiued inpatient stay Substantial Risk for: harm to self
[2020-11-19] MEDS: Escitalopram Oxalate 10 MG TABLET PO (08:37)
[2020-11-19 08:54] VITALS: BP 129/67; PULSE 71; RESP 18; TEMP 36.7
[2020-11-19 08:54] LABS: Glucose, Whole Blood 145 mg/dL (60-115)
[2020-11-19] MEDS: Acetaminophen 325 MG TABLET 650 MG PO ×2 (10:47→22:02)
[2020-11-19] MEDS: Insulin Lispro 100 UNIT/ML 3 ML VIAL SUBCUT ×3 (12:39→22:10)
[2020-11-19 17:42] LABS: Glucose, Whole Blood 281 mg/dL (60-115)
[2020-11-19 18:33] LABS: Glucose, Whole Blood 161 mg/dL (60-115)
[2020-11-19] MEDS: traZODone HCL 100 MG TABLET PO (22:02)
[2020-11-19 22:08] LABS: Glucose, Whole Blood 257 mg/dL (60-115)
[2020-11-19 23:03] VITALS: BP 144/79; PULSE 89; TEMP 36.6; O2SAT 97
[2020-11-20 08:25] VITALS: BP 162/74; PULSE 73; RESP 18; TEMP 36.8; O2SAT 96
[2020-11-20] MEDS: Escitalopram Oxalate 10 MG TABLET PO (08:25)
[2020-11-20 08:47] LABS: Glucose, Whole Blood 129 mg/dL (60-115)
[2020-11-20] MEDS: Acetaminophen 325 MG TABLET 650 MG PO ×2 (10:06→21:28)
--- NOTE | 2020-11-20 12:09 | P.PNPSI_ITS ---
Subjective Subjective Date of Service: 11/20/20 Reason For Visit: Major Depressive Disorder Recurrent Interim History: Nursing staff reported that the patient has been pleasant, most of the time in his room all day. As per staff his sleep was better last night. The patient can't speak Engilsh but he communicated with the portable retail seasonal specialist and stated that he is OK, no new symptoms, compliant with treatment. Review of Systems Acute medical concerns: No Medical Review of Systems: unchanged Mental Status Exam Mental Status Exam Patient Appearance: Well Grooomed Patient Orientation: Person, Place, Time and Situation Level of Consciousness: Awake Patient Behavior: Cooperative Mood Description: Calm Affect Description: Constricted Patient Cognition Impaired: No Ability to Follow Directions: Good Speech Pattern: Clear Memory Description: Intact Hallucinations: None Delusions: Not Present Thought Process: Linear Thought Content: positive for Intact Judgement: Fair Diagnostics Vital Signs (24Hr): Vital Signs - 24 hr 11/19/20 23:03 11/20/20 08:25 Temperature 97.8 F 98.2 F Pulse Rate 89 73 Respiratory Rate 18 Blood Pressure 144/79 H 162/74 H Pulse Oximetry 97 96 Body Mass Index 25.7 Labs Labs: Laboratory Results - last 48 hr 11/18/20 11/18/20 11/18/20 12:29 16:59 20:24 POC Glucose 284 H 191 H 254 H 11/19/20 11/19/20 11/19/20 08:47 12:32 17:42 POC Glucose 145 H 281 H 161 H 11/19/20 11/20/20 22:00 08:37 POC Glucose 257 H 129 H Medications Medications Current Medications Generic Name Dose Route Start Last Admin Trade Name Arron PRN Reason Stop Dose Admin Acetaminophen 650 mg 11/10/20 15:55 11/20/20 10:06 Acetaminophen 325 Mg Tablet PO 650 mg Q6H PRN Administration Headache/Pain Mild Scale (1-3) Al Hydroxide/Mg Hydroxide 30 ml 11/10/20 15:55 11/18/20 17:20 Magnesium Hydrox/Alum Hydrox 30 Ml Oral.Susp PO 30 ml Q6H PRN Administration Heartburn/Nausea Escitalopram Oxalate 10 mg 11/11/20 09:00 11/20/20 08:25 Escitalopram Oxalate 10 Mg Tablet PO 10 mg DAILY DUNIA Administration Hydroxyzine HCl 25 mg 11/10/20 15:55 Hydroxyzine Hcl 25 Mg Tablet PO Q6H PRN Anxiety Insulin Human Lispro 0 unit 11/10/20 21:00 11/20/20 08:39 Insulin Lispro 100 Unit/Ml 3 Ml Vial SUBCUT Not Given QIDACHS [facility] Protocol Magnesium Hydroxide 30 ml 11/10/20 15:55 11/17/20 13:59 Milk Of Magnesia 30 Ml Oral.Susp PO 30 ml DAILY PRN Administration Constipation Naproxen 500 mg 11/10/20 16:28 11/16/20 12:23 Naproxen 500 Mg Tablet PO 500 mg BID PRN Administration Pain, Moderate (Pain Scale 4-6 Trazodone HCl 100 mg 11/17/20 21:00 11/19/20 22:02 Trazodone Hcl 100 Mg Tablet PO 100 mg BEDTIME DUNIA Administration Allergies Allergies Allergy/AdvReac Type Severity Reaction Status Date / Time No Known Allergies Allergy Verified 11/10/20 15:51 Assessment & Plan Assessment & Plan (1) Depression: Status: Acute Code(s): F32.9 - Major depressive disorder, single episode, unspecified (2) PTSD (post-traumatic stress disorder): Status: Acute Code(s): F43.10 - Post-traumatic stress disorder, unspecified (3) Diabetes: Status: Acute Code(s): E11.9 - Type 2 diabetes mellitus without complications (4) Ear pain: Status: Acute Code(s): H92.09 - Otalgia, unspecified ear Assessment and Plan: Bennett is a 65 year old male who presents with symptoms of depression, irritability, anxiety, flashbacks, hyperarousal, lack of sleep, perseverative thoughts, and nightmares. He was brought to [facility] [place] following a verbal altercation with his in the context of ongoing marital issues, financial stress, housing instability, and lack of psychiatric treatment. He does not speak Japanese and has language barriers living in [place] He has no past psychiatric treatment, [place] with his and three daughters. He has past trauma history from [place], [place]. He has multiple co-morbid medical issues including insulin dependent diabetes, hx of head injury, and leg pain. He is currently accepting medication management for symptoms of PTSD and insomnia. Lexapro was started at [facility] ED. 11/12: Bennett reports positive benefit on medications, tolerating them well. Continues to endorse sx of anxiety and feeling sad when he thinks about his stressors. Sleep is improved on trazodone. Plan: 1. continue on lexapro 10 mg QD for sx of PTSD and trazodone 50 mg QHS PRN for insomnia. Monitor response to medications. 2. Monitor for safety in the milieu. 3. SW will work on housing, legal issues 4. Discharge on stabilization. Patient seen. Chart reviewed. Discussed with team. Greater than 50% of the session was spent on counseling and/or coordination of care Reason for contiued inpatient stay Substantial Risk for: inability to function, rapid decompensation and med/psych decompensation
[2020-11-20 12:38] LABS: Glucose, Whole Blood 222 mg/dL (60-115)
[2020-11-20] MEDS: Insulin Lispro 100 UNIT/ML 3 ML VIAL SUBCUT ×3 (12:40→21:27)
[2020-11-20 17:29] LABS: Glucose, Whole Blood 166 mg/dL (60-115)
[2020-11-20 20:00] VITALS: BP 141/65; PULSE 72; TEMP 36.8; O2SAT 98
[2020-11-20 21:07] LABS: Glucose, Whole Blood 257 mg/dL (60-115)
[2020-11-20] MEDS: traZODone HCL 100 MG TABLET PO (21:28)
[2020-11-21 08:38] LABS: Glucose, Whole Blood 137 mg/dL (60-115)
[2020-11-21 08:41] VITALS: BP 143/79; PULSE 69; RESP 16; TEMP 37.1; O2SAT 96
[2020-11-21] MEDS: Escitalopram Oxalate 10 MG TABLET PO (09:10)
[2020-11-21] MEDS: Acetaminophen 325 MG TABLET 650 MG PO (10:50)
--- NOTE | 2020-11-21 11:34 | P.PNPSI_ITS ---
Subjective Subjective Date of Service: 11/21/20 Reason For Visit: Major Depressive Disorder Recurrent Interim History: Nursing staff reported that the patient has eatne well and he slept the whole night. He stated to the nursing staff that he can't feel depressed since everything is done for him here . On interview, he denied new symptoms Review of Systems Acute medical concerns: No Medical Review of Systems: unchanged Mental Status Exam Mental Status Exam Patient Appearance: Well Grooomed Patient Orientation: Person Level of Consciousness: Awake Patient Behavior: Cooperative Mood Description: Calm Affect Description: Constricted Patient Cognition Impaired: No Ability to Follow Directions: Good Speech Pattern: Clear (in Farsi) Hallucinations: None Delusions: Not Present Thought Process: Goal Oriented Thought Content: positive for Circumstantial Judgement: Fair Diagnostics Vital Signs (24Hr): Vital Signs - 24 hr 11/20/20 20:00 11/21/20 08:41 Temperature 98.2 F 98.7 F Pulse Rate 72 69 Respiratory Rate 16 Blood Pressure 141/65 H 143/79 H Pulse Oximetry 98 96 Body Mass Index 25.7 Labs Labs: Laboratory Results - last 48 hr 11/19/20 11/19/20 11/19/20 12:32 17:42 22:00 POC Glucose 281 H 161 H 257 H 11/20/20 11/20/20 11/20/20 08:37 12:32 17:24 POC Glucose 129 H 222 H 166 H 11/20/20 11/21/20 21:02 08:33 POC Glucose 257 H 137 H Medications Medications Current Medications Generic Name Dose Route Start Last Admin Trade Name Freq PRN Reason Stop Dose Admin Acetaminophen 650 mg 11/10/20 15:55 11/21/20 10:50 Acetaminophen 325 Mg Tablet PO 650 mg Q6H PRN Administration Headache/Pain Mild Scale (1-3) Al Hydroxide/Mg Hydroxide 30 ml 11/10/20 15:55 11/18/20 17:20 Magnesium Hydrox/Alum Hydrox 30 Ml Oral.Susp PO 30 ml Q6H PRN Administration Heartburn/Nausea Escitalopram Oxalate 10 mg 11/11/20 09:00 11/21/20 09:10 Escitalopram Oxalate 10 Mg Tablet PO 10 mg DAILY DUNIA Administration Hydroxyzine HCl 25 mg 11/10/20 15:55 Hydroxyzine Hcl 25 Mg Tablet PO Q6H PRN Anxiety Insulin Human Lispro 0 unit 11/10/20 21:00 11/21/20 08:44 Insulin Lispro 100 Unit/Ml 3 Ml Vial SUBCUT Not Given QIDACHS [facility] Protocol Magnesium Hydroxide 30 ml 11/10/20 15:55 11/17/20 13:59 Milk Of Magnesia 30 Ml Oral.Susp PO 30 ml DAILY PRN Administration Constipation Naproxen 500 mg 11/10/20 16:28 11/16/20 12:23 Naproxen 500 Mg Tablet PO 500 mg BID PRN Administration Pain, Moderate (Pain Scale 4-6 Trazodone HCl 100 mg 11/17/20 21:00 11/20/20 21:28 Trazodone Hcl 100 Mg Tablet PO 100 mg BEDTIME DUNIA Administration Allergies Allergies Allergy/AdvReac Type Severity Reaction Status Date / Time No Known Allergies Allergy Verified 11/10/20 15:51 Assessment & Plan Assessment & Plan (1) Depression: Status: Acute Code(s): F32.9 - Major depressive disorder, single episode, unspecified (2) PTSD (post-traumatic stress disorder): Status: Acute Code(s): F43.10 - Post-traumatic stress disorder, unspecified (3) Diabetes: Status: Acute Code(s): E11.9 - Type 2 diabetes mellitus without complications (4) Ear pain: Status: Acute Code(s): H92.09 - Otalgia, unspecified ear Assessment and Plan: Bennett is a 65 year old male who presents with symptoms of depression, irritability, anxiety, flashbacks, hyperarousal, lack of sleep, perseverative thoughts, and nightmares. He was brought to [facility] [place] following a verbal altercation with his in the context of ongoing marital issues, financial stress, housing instability, and lack of psychiatric treatment. He does not speak Slovenian and has language barriers living in [place] He has no past psychiatric treatment, [place] with his and three daughters. He has past trauma history from [place], [place] by [place]. He has multiple co-morbid medical issues including insulin dependent diabetes, hx of head injury, and leg pain. He is currently accepting medication management for symptoms of PTSD and insomnia. Lexapro was started at [facility] ED. 11/12: Bennett reports positive benefit on medications, tolerating them well. Continues to endorse sx of anxiety and feeling sad when he thinks about his stressors. Sleep is improved on trazodone. Plan: 1. continue on lexapro 10 mg QD for sx of PTSD and trazodone 50 mg QHS PRN for insomnia. Monitor response to medications. 2. Monitor for safety in the milieu. 3. will work on housing, legal issues 4. Discharge on stabilization. Patient seen. Chart reviewed. Discussed with team. Greater than 50% of the session was spent on counseling and/or coordination of care Reason for contiued inpatient stay Substantial Risk for: inability to function, rapid decompensation and med/psych decompensation
[2020-11-21 12:19] LABS: Glucose, Whole Blood 289 mg/dL (60-115)
[2020-11-21] MEDS: Insulin Lispro 100 UNIT/ML 3 ML VIAL SUBCUT ×3 (12:19→21:13)
[2020-11-21 13:09] LABS: Glucose, Whole Blood 219 mg/dL (60-115)
[2020-11-21] MEDS: NaPROXEN 500 MG TABLET PO (16:08)
[2020-11-21] MEDS: Milk of Magnesia 30 ML ORAL.SUSP PO (16:08)
[2020-11-21] MEDS: Simethicone 80 MG TAB.CHEW PO ×2 (16:53→21:58)
[2020-11-21 17:05] LABS: Glucose, Whole Blood 156 mg/dL (60-115)
[2020-11-21 18:00] VITALS: BP 142/63; PULSE 78; RESP 16; TEMP 36.3; O2SAT 95
[2020-11-21 20:51] LABS: Glucose, Whole Blood 231 mg/dL (60-115)
[2020-11-21] MEDS: traZODone HCL 100 MG TABLET PO (21:58)
[2020-11-22] MEDS: Escitalopram Oxalate 10 MG TABLET PO (08:27)
[2020-11-22] MEDS: Simethicone 80 MG TAB.CHEW PO ×4 (08:28→21:34)
[2020-11-22 08:39] LABS: Glucose, Whole Blood 123 mg/dL (60-115)
[2020-11-22 08:44] VITALS: BP 134/59; PULSE 64; RESP 18; TEMP 36.6; O2SAT 95
[2020-11-22] MEDS: Acetaminophen 325 MG TABLET 650 MG PO ×2 (10:06→21:35)
[2020-11-22 12:38] LABS: Glucose, Whole Blood 198 mg/dL (60-115)
[2020-11-22] MEDS: Insulin Lispro 100 UNIT/ML 3 ML VIAL SUBCUT ×2 (12:40→21:33)
--- NOTE | 2020-11-22 15:26 | HO.PSYCHPN ---
Subjective Subjective Date of Service: 11/22/20 Reason For Visit: Major Depressive Disorder Recurrent Subjective Notes: Conditional Voluntary Interim History: Pt interview with help of translator and interpreter via iPad. Pt somewhat upset and irritable today complaining about the food, how food is so tasteless and people checking on him several times opening and closing doors. He asked to be discharged, but knows he does not have place to go. He denied suicidal or homicidal ideation. Pt hyper focused on food, not liking food and this affecting his mood and it was hard to redirect him. He also reports tooth pain, backache. Medication Compliance: Yes Side effects from medications: No Attending Groups: No Review of Systems Acute medical concerns: No Review of Systems Review of Systems Yes all other systems are reviewed and are negative Mental Status Exam Mental Status Exam Narrative: Appearance: casually groomed, fair hygiene in NAD Behavior:irritable psychomotor:no agitation or retardation noted Speech:(assessed with translator and interpreter), rambling, pressured, spontaneous Thought process:tangetial Thought content:no signs of psychosis, not liking food in hospital and this affecting mood. Mood: upset Affect: congruent SI:denies HI:denies VH/AH:none Delusions:none Memory/cog: alert, oriented x 3. not formally tested. Diagnostics Vital Signs (24Hr): Vital Signs - 24 hr 11/21/20 18:00 11/22/20 08:44 Temperature 97.4 F 97.9 F Pulse Rate 78 64 Respiratory Rate 16 18 Blood Pressure 142/63 H 134/59 L Pulse Oximetry 95 95 Body Mass Index 25.7 Labs Labs: Laboratory Results - last 48 hr 11/20/20 11/20/20 11/21/20 17:24 21:02 08:33 POC Glucose 166 H 257 H 137 H 11/21/20 11/21/20 11/21/20 12:14 13:04 16:59 POC Glucose 289 H 219 H 156 H 11/21/20 11/22/20 11/22/20 20:41 08:33 12:34 POC Glucose 231 H 123 H 198 H Medications Medications Current Medications Generic Name Dose Route Start Last Admin Trade Name Freq PRN Reason Stop Dose Admin Acetaminophen 650 mg 11/10/20 15:55 11/22/20 10:06 Acetaminophen 325 Mg Tablet PO 650 mg Q6H PRN Administration Headache/Pain Mild Scale (1-3) Al Hydroxide/Mg Hydroxide 30 ml 11/10/20 15:55 11/18/20 17:20 Magnesium Hydrox/Alum Hydrox 30 Ml Oral.Susp PO 30 ml Q6H PRN Administration Heartburn/Nausea Escitalopram Oxalate 10 mg 11/11/20 09:00 11/22/20 08:27 Escitalopram Oxalate 10 Mg Tablet PO 10 mg DAILY DUNIA Administration Hydroxyzine HCl 25 mg 11/10/20 15:55 Hydroxyzine Hcl 25 Mg Tablet PO Q6H PRN Anxiety Insulin Human Lispro 0 unit 11/10/20 21:00 11/22/20 12:40 Insulin Lispro 100 Unit/Ml 3 Ml Vial SUBCUT 2 unit QIDACHS DUNIA Administration Protocol Magnesium Hydroxide 30 ml 11/10/20 15:55 11/21/20 16:08 Milk Of Magnesia 30 Ml Oral.Susp PO 30 ml DAILY PRN Administration Constipation Naproxen 500 mg 11/10/20 16:28 11/21/20 16:08 Naproxen 500 Mg Tablet PO 500 mg BID PRN Administration Pain, Moderate (Pain Scale 4-6 Simethicone 80 mg 11/21/20 17:00 11/22/20 12:41 Simethicone 80 Mg Tab.Chew PO 80 mg QIDWMHS DUNIA Administration Trazodone HCl 100 mg 11/17/20 21:00 11/21/20 21:58 Trazodone Hcl 100 Mg Tablet PO 100 mg BEDTIME DUNIA Administration Allergies Allergies Allergy/AdvReac Type Severity Reaction Status Date / Time No Known Allergies Allergy Verified 11/10/20 15:51 Assessment & Plan Assessment & Plan (1) Depression: Status: Acute Code(s): F32.9 - Major depressive disorder, single episode, unspecified (2) PTSD (post-traumatic stress disorder): Status: Acute Code(s): F43.10 - Post-traumatic stress disorder, unspecified (3) Diabetes: Status: Acute Code(s): E11.9 - Type 2 diabetes mellitus without complications (4) Ear pain: Status: Acute Code(s): H92.09 - Otalgia, unspecified ear Assessment and Plan: Bennett is a 65 year old male who presents with symptoms of depression, irritability, anxiety, flashbacks, hyperarousal, lack of sleep, perseverative thoughts, and nightmares. He was brought to [facility] following a verbal altercation with his in the context of ongoing marital issues, financial stress, housing instability, and lack of psychiatric treatment. He does not speak Amharic and has language barriers living in [place] He has no past psychiatric treatment, [place] with his and three daughters. He has past trauma history from [place], [place]. He has multiple co-morbid medical issues including insulin dependent diabetes, hx of head injury, and leg pain. He is currently accepting medication management for symptoms of PTSD and insomnia. Lexapro was started at [facility] ED. Collateral information from daughter- pt very irritable, explosive at times, threatening family Plan: 1. Continue on lexapro 10 mg QD for sx of PTSD and trazodone 50 mg QHS PRN for insomnia. Monitor response to medications. 2. Start trileptal 300mg po BID for mood stabilization given concerns of pt's hx of irritability, explosive behaviors. 3. SW will work on housing, legal issues- aftercare planning 4. Discharge on stabilization. Patient seen. Chart reviewed. Discussed with team. Greater than 50% of the session was spent on counseling and/or coordination of care Reason for contiued inpatient stay Substantial Risk for: harm to others
[2020-11-22] MEDS: Amoxicillin/Potassium Clav 875 MG TABLET PO (15:52)
--- NOTE | 2020-11-22 17:30 | PC.NURSE ---
Pt refused poc. he states not today.
[2020-11-22 21:33] LABS: Glucose, Whole Blood 232 mg/dL (60-115)
[2020-11-22] MEDS: NaPROXEN 500 MG TABLET PO (21:34)
[2020-11-22] MEDS: OXcarbazepine 300 MG TABLET PO (21:34)
[2020-11-22] MEDS: traZODone HCL 100 MG TABLET PO (21:34)
[2020-11-22] MEDS: hydrOXYzine HCL 25 MG TABLET PO (21:36)
[2020-11-22 21:42] VITALS: BP 123/61; PULSE 74; RESP 18; TEMP 36.9; O2SAT 96
[2020-11-23] MEDS: NaPROXEN 500 MG TABLET PO ×2 (08:03→20:50)
[2020-11-23] MEDS: Simethicone 80 MG TAB.CHEW PO ×4 (08:03→20:50)
[2020-11-23] MEDS: metFORMIN HCl 500 MG TABLET PO (08:03)
[2020-11-23] MEDS: OXcarbazepine 300 MG TABLET PO ×2 (08:03→20:50)
[2020-11-23] MEDS: Escitalopram Oxalate 10 MG TABLET PO (08:04)
[2020-11-23] MEDS: Amoxicillin/Potassium Clav 875 MG TABLET PO ×2 (08:05→20:50)
[2020-11-23 08:15] VITALS: BP 152/72; PULSE 69; RESP 18; TEMP 36.8; O2SAT 96
[2020-11-23 08:17] LABS: Glucose, Whole Blood 141 mg/dL (60-115)
--- NOTE | 2020-11-23 08:38 | P.PNPSI_ITS ---
Subjective Subjective Date of Service: 11/26/20 Reason For Visit: Major Depressive Disorder Recurrent Subjective Notes: Conditional Voluntary Interim History: Pt interview with help of liquid center assembler via iPad. Pt has been more visible in the unit and has started to attend more OT groups. He reports having a good day. He does report he's tired of several interruptions but staff during 15 minutes checks and about the food, which he states is tasteless. He continues to report that family were the ones intimidating him and doesn't understand why there's a restraining order. No behavioral concerns in the unit. Medication Compliance: Yes Review of Systems Review of Systems Yes all other systems are reviewed and are negative Mental Status Exam Mental Status Exam Narrative: Appearance: casually groomed, fair hygiene in NAD Behavior:irritable psychomotor:no agitation or retardation noted Speech:(assessed with liquid center assembler), rambling, pressured, spontaneous Thought process:tangetial Thought content:no signs of psychosis, not liking food in hospital and this affecting mood. Mood: upset Affect: congruent SI:denies HI:denies VH/AH:none Delusions:none Memory/cog: alert, oriented x 3. not formally tested. Diagnostics Vital Signs (24Hr): Vital Signs - 24 hr 11/25/20 18:00 Temperature 98.4 F Pulse Rate 75 Respiratory Rate 18 Pulse Oximetry 99 Body Mass Index 25.7 Labs Results: 11/24/20 07:05 Labs: Laboratory Results - last 48 hr 11/24/20 11/24/20 11/24/20 08:25 12:42 17:28 POC Glucose 117 H 117 H 220 H 11/24/20 11/25/20 11/25/20 21:35 10:02 12:18 POC Glucose 132 H 164 H 125 H 11/25/20 11/25/20 17:20 21:45 POC Glucose 172 H 232 H Medications Medications Current Medications Generic Name Dose Route Start Last Admin Trade Name Freq PRN Reason Stop Dose Admin Acetaminophen 650 mg 11/10/20 15:55 11/22/20 21:35 Acetaminophen 325 Mg Tablet PO 650 mg Q6H PRN Administration Headache/Pain Mild Scale (1-3) Al Hydroxide/Mg Hydroxide 30 ml 11/10/20 15:55 11/18/20 17:20 Magnesium Hydrox/Alum Hydrox 30 Ml Oral.Susp PO 30 ml Q6H PRN Administration Heartburn/Nausea Amlodipine Besylate 2.5 mg 11/24/20 09:00 11/25/20 10:18 Amlodipine Besylate 2.5 Mg Tablet PO 2.5 mg DAILY DUNIA Administration Protocol Amoxicillin/Clavulanate Potassium 875 mg 11/23/20 08:00 11/25/20 21:32 Amoxicillin/Potassium Clav 875 Mg Tablet PO 11/29/20 08:01 875 mg Q12H DUNIA Administration Escitalopram Oxalate 10 mg 11/11/20 09:00 11/25/20 10:08 Escitalopram Oxalate 10 Mg Tablet PO 10 mg DAILY DUNIA Administration Hydroxyzine HCl 25 mg 11/10/20 15:55 11/22/20 21:36 Hydroxyzine Hcl 25 Mg Tablet PO 25 mg Q6H PRN Administration Anxiety Insulin Human Lispro 0 unit 11/10/20 21:00 11/25/20 21:54 Insulin Lispro 100 Unit/Ml 3 Ml Vial SUBCUT 4 unit QIDACHS [facility] Administration Protocol Magnesium Hydroxide 30 ml 11/10/20 15:55 11/21/20 16:08 Milk Of Magnesia 30 Ml Oral.Susp PO 30 ml DAILY PRN Administration Constipation Metformin HCl 500 mg 11/23/20 09:00 11/25/20 10:09 Metformin Hcl 500 Mg Tablet PO 500 mg DAILY DUNIA Administration Naproxen 500 mg 11/22/20 21:00 11/25/20 21:32 Naproxen 500 Mg Tablet PO 500 mg BID DUNIA Administration Oxcarbazepine 300 mg 11/22/20 21:00 11/25/20 21:33 Oxcarbazepine 300 Mg Tablet PO 300 mg BID DUNIA Administration Simethicone 80 mg 11/21/20 17:00 11/25/20 21:33 Simethicone 80 Mg Tab.Chew PO 80 mg QIDWMHS DUNIA Administration Trazodone HCl 100 mg 11/17/20 21:00 11/25/20 21:33 Trazodone Hcl 100 Mg Tablet PO 100 mg BEDTIME DUNIA Administration Allergies Allergies Allergy/AdvReac Type Severity Reaction Status Date / Time No Known Allergies Allergy Verified 11/10/20 15:51 Assessment & Plan Assessment & Plan (1) Depression: Status: Acute Code(s): F32.9 - Major depressive disorder, single episode, unspecified (2) PTSD (post-traumatic stress disorder): Status: Acute Code(s): F43.10 - Post-traumatic stress disorder, unspecified (3) Diabetes: Status: Acute Code(s): E11.9 - Type 2 diabetes mellitus without complications (4) Ear pain: Status: Acute Code(s): H92.09 - Otalgia, unspecified ear Assessment and Plan: Bennett is a 65 year old male who presents with symptoms of depression, irritability, anxiety, flashbacks, hyperarousal, lack of sleep, perseverative thoughts, and nightmares. [place] [facility] [place] alter[place] with his in the context of ongoing marital issues, financial stress, housing instability, and lack of psychiatric treatment. He does not speak Uzbek and has language barriers living in [place] He has no past psychiatric treatment, [place] [facility] [place] with his and three daughters. He has past trauma [place], [place]. He has multiple co-morbid medical issues including insulin dependent diabetes, hx of head injury, and leg pain. He is currently accepting medication management for symptoms of PTSD and insomnia. Lexapro was started at [facility] ED. Collateral information from daughter- pt very irritable, explosive at times, threatening family Plan: 1. Continue on lexapro 10 mg QD for sx of PTSD and trazodone 50 mg QHS PRN for insomnia. Monitor response to medications. 2. Start trileptal 300mg po BID for mood stabilization given concerns of pt's hx of irritability, explosive behaviors. 3. SW will work on housing, legal issues- aftercare planning 4. Discharge on stabilization. Patient seen. Chart reviewed. Discussed with team. Greater than 50% of the session was spent on counseling and/or coordination of care Reason for contiued inpatient stay Substantial Risk for: stable for discharge
[2020-11-23 12:32] LABS: Glucose, Whole Blood 194 mg/dL (60-115)
[2020-11-23] MEDS: Insulin Lispro 100 UNIT/ML 3 ML VIAL SUBCUT ×3 (12:36→20:51)
[2020-11-23 17:28] LABS: Glucose, Whole Blood 247 mg/dL (60-115)
[2020-11-23 20:37] LABS: Glucose, Whole Blood 172 mg/dL (60-115)
[2020-11-23] MEDS: traZODone HCL 100 MG TABLET PO (20:51)
[2020-11-23 21:20] VITALS: BP 132/61; PULSE 78; RESP 18; TEMP 36.9; O2SAT 97
[2020-11-24 08:20] LABS: Anion Gap 11 (12-20); Blood Urea Nitrogen 26 mg/dL (9-16); Carbon Dioxide 28 mmol/L (22-29); Chloride 105 mmol/L (96-108); Creatinine Clr Calc Pharmacy 61.3; Estimated Glomerular Filt Rate > 60; Glucose Random 120 mg/dL (60-115); Sodium 139 mmol/L (135-145)
[2020-11-24] MEDS: Simethicone 80 MG TAB.CHEW PO ×4 (08:27→21:58)
[2020-11-24] MEDS: OXcarbazepine 300 MG TABLET PO ×2 (08:27→21:58)
[2020-11-24] MEDS: Escitalopram Oxalate 10 MG TABLET PO (08:27)
[2020-11-24] MEDS: metFORMIN HCl 500 MG TABLET PO (08:27)
[2020-11-24 08:28] VITALS: BP 129/61; PULSE 68
[2020-11-24] MEDS: amLODIPine Besylate 2.5 MG TABLET PO (08:28)
[2020-11-24] MEDS: Amoxicillin/Potassium Clav 875 MG TABLET PO ×2 (08:28→21:57)
[2020-11-24] MEDS: NaPROXEN 500 MG TABLET PO ×2 (08:29→21:58)
[2020-11-24 08:30] LABS: Alanine Aminotransferase 12 U/L (0-40); Albumin Level 3.6 g/dL (3.5-5.0); Alkaline Phosphatase 79 U/L (39-117); Anion Gap 14 (12-20); Aspartate Amino Transferase 14 U/L (5-37); Bilirubin Total < 0.2 mg/dL (0.0-1.0); Blood Urea Nitrogen 26 mg/dL (9-16); Carbon Dioxide 25 mmol/L (22-29); Chloride 105 mmol/L (96-108); Creatinine Clr Calc Pharmacy 58.5; Estimated Glomerular Filt Rate > 60; Glucose Random 121 mg/dL (60-115); Potassium 5.1 mmol/L (3.3-5.1); Sodium 139 mmol/L (135-145); Total Protein 6.6 g/dL (6.5-8.0)
--- NOTE | 2020-11-24 08:31 | HO.PSYCHPN ---
Subjective Subjective Date of Service: 11/26/20 Reason For Visit: Major Depressive Disorder Recurrent Subjective Notes: Conditional Voluntary Interim History: Pt interview with help of carpet repairer via iPad. Pt reports feeling better in that he does not have suicidal or homicidal thoughts. He adamantly denies any plan or intent to hurt himself or anyone else. He complaints about food here in hospital and being bothered every 15 minutes. He has been more visible in the unit and has attended some groups- mostly OT groups. No behavioral concerns. Medication Compliance: Yes Review of Systems Review of Systems Yes all other systems are reviewed and are negative Mental Status Exam Mental Status Exam Narrative: Appearance: casually groomed, fair hygiene in NAD Behavior:irritable psychomotor:no agitation or retardation noted Speech:(assessed with carpet repairer), rambling, pressured, spontaneous Thought process:tangetial Thought content:no signs of psychosis, not liking food in hospital and this affecting mood. Mood: upset Affect: congruent SI:denies HI:denies VH/AH:none Delusions:none Memory/cog: alert, oriented x 3. not formally tested. Diagnostics Vital Signs (24Hr): Vital Signs - 24 hr 11/25/20 18:00 Temperature 98.4 F Pulse Rate 75 Respiratory Rate 18 Pulse Oximetry 99 Body Mass Index 25.7 Labs Results: 11/24/20 07:05 Labs: Laboratory Results - last 48 hr 11/24/20 11/24/20 11/24/20 07:05 07:05 08:25 Sodium 139 139 Potassium 5.1 5.0 Chloride 105 105 Carbon Dioxide 25 Anion Gap 14 BUN 26 H 26 H Creatinine 1.08 Estim Creat Clear Calc 58.5 Estimated GFR > 60 POC Glucose 117 H Random Glucose 121 H 120 H Calcium 9.0 9.0 Total Bilirubin < 0.2 AST 14 ALT 12 Alkaline Phosphatase 79 Total Protein 6.6 Albumin 3.6 11/24/20 11/24/20 11/24/20 12:42 17:28 21:35 Sodium Potassium Chloride Carbon Dioxide Anion Gap BUN Creatinine Estim Creat Clear Calc Estimated GFR POC Glucose 117 H 220 H 132 H Random Glucose Calcium Total Bilirubin AST ALT Alkaline Phosphatase Total Protein Albumin 11/25/20 11/25/20 11/25/20 10:02 12:18 17:20 Sodium Potassium Chloride Carbon Dioxide Anion Gap BUN Creatinine Estim Creat Clear Calc Estimated GFR POC Glucose 164 H 125 H 172 H Random Glucose Calcium Total Bilirubin AST ALT Alkaline Phosphatase Total Protein Albumin 11/25/20 21:45 Sodium Potassium Chloride Carbon Dioxide Anion Gap BUN Creatinine Estim Creat Clear Calc Estimated GFR POC Glucose 232 H Random Glucose Calcium Total Bilirubin AST ALT Alkaline Phosphatase Total Protein Albumin Medications Medications Current Medications Generic Name Dose Route Start Last Admin Trade Name Freq PRN Reason Stop Dose Admin Acetaminophen 650 mg 11/10/20 15:55 11/22/20 21:35 Acetaminophen 325 Mg Tablet PO 650 mg Q6H PRN Administration Headache/Pain Mild Scale (1-3) Al Hydroxide/Mg Hydroxide 30 ml 11/10/20 15:55 11/18/20 17:20 Magnesium Hydrox/Alum Hydrox 30 Ml Oral.Susp PO 30 ml Q6H PRN Administration Heartburn/Nausea Amlodipine Besylate 2.5 mg 11/24/20 09:00 11/25/20 10:18 Amlodipine Besylate 2.5 Mg Tablet PO 2.5 mg DAILY DUNIA Administration Protocol Amoxicillin/Clavulanate Potassium 875 mg 11/23/20 08:00 11/25/20 21:32 Amoxicillin/Potassium Clav 875 Mg Tablet PO 11/29/20 08:01 875 mg Q12H DUNIA Administration Escitalopram Oxalate 10 mg 11/11/20 09:00 11/25/20 10:08 Escitalopram Oxalate 10 Mg Tablet PO 10 mg DAILY DUNIA Administration Hydroxyzine HCl 25 mg 11/10/20 15:55 11/22/20 21:36 Hydroxyzine Hcl 25 Mg Tablet PO 25 mg Q6H PRN Administration Anxiety Insulin Human Lispro 0 unit 11/10/20 21:00 11/25/20 21:54 Insulin Lispro 100 Unit/Ml 3 Ml Vial SUBCUT 4 unit QIDACHS [facility] Administration Protocol Magnesium Hydroxide 30 ml 11/10/20 15:55 11/21/20 16:08 Milk Of Magnesia 30 Ml Oral.Susp PO 30 ml DAILY PRN Administration Constipation Metformin HCl 500 mg 11/23/20 09:00 11/25/20 10:09 Metformin Hcl 500 Mg Tablet PO 500 mg DAILY DUNIA Administration Naproxen 500 mg 11/22/20 21:00 11/25/20 21:32 Naproxen 500 Mg Tablet PO 500 mg BID DUNIA Administration Oxcarbazepine 300 mg 11/22/20 21:00 11/25/20 21:33 Oxcarbazepine 300 Mg Tablet PO 300 mg BID DUNIA Administration Simethicone 80 mg 11/21/20 17:00 11/25/20 21:33 Simethicone 80 Mg Tab.Chew PO 80 mg QIDWMHS DUNIA Administration Trazodone HCl 100 mg 11/17/20 21:00 11/25/20 21:33 Trazodone Hcl 100 Mg Tablet PO 100 mg BEDTIME DUNIA Administration Allergies Allergies Allergy/AdvReac Type Severity Reaction Status Date / Time No Known Allergies Allergy Verified 11/10/20 15:51 Assessment & Plan Assessment & Plan (1) Depression: Status: Acute Code(s): F32.9 - Major depressive disorder, single episode, unspecified (2) PTSD (post-traumatic stress disorder): Status: Acute Code(s): F43.10 - Post-traumatic stress disorder, unspecified (3) Diabetes: Status: Acute Code(s): E11.9 - Type 2 diabetes mellitus without complications (4) Ear pain: Status: Acute Code(s): H92.09 - Otalgia, unspecified ear Assessment and Plan: Bennett is a 65 year old male who presents with symptoms of depression, irritability, anxiety, flashbacks, hyperarousal, lack of sleep, perseverative thoughts, and nightmares. He was brought to [facility] following a verbal altercation with his in the context of ongoing marital issues, financial stress, housing instability, and lack of psychiatric treatment. He does not speak Indonesian and has language barriers living in [place] He has no past psychiatric treatment, [place] with his and three daughters. He has past trauma history from living [place], [place] by [place]. He has multiple co-morbid medical issues including insulin dependent diabetes, hx of head injury, and leg pain. He is currently accepting medication management for symptoms of PTSD and insomnia. Lexapro was started at [facility] ED. Collateral information from daughter- pt very irritable, explosive at times, threatening family Plan: 1. Continue on lexapro 10 mg QD for sx of PTSD and trazodone 50 mg QHS PRN for insomnia. Monitor response to medications. 2. Start trileptal 300mg po BID for mood stabilization given concerns of pt's hx of irritability, explosive behaviors. 3. SW will work on housing, legal issues- aftercare planning 4. Discharge on stabilization. Patient seen. Chart reviewed. Discussed with team. Greater than 50% of the session was spent on counseling and/or coordination of care Reason for contiued inpatient stay Substantial Risk for: stable for discharge
[2020-11-24 08:42] LABS: Glucose, Whole Blood 117 mg/dL (60-115)
[2020-11-24 08:45] VITALS: BP 129/61; PULSE 66; RESP 16; TEMP 36.8; O2SAT 96
[2020-11-24 12:48] LABS: Glucose, Whole Blood 117 mg/dL (60-115)
--- NOTE | 2020-11-24 15:06 | MHC.CLN ---
NUTRITION STAFF REPORTS THAT PATIENT IS EATING WELL. CURRENTLY HAS TOOTH PAIN AND STAFF IS HELPING TO SELECT SOFTER FOODS.
[2020-11-24 17:33] LABS: Glucose, Whole Blood 220 mg/dL (60-115)
[2020-11-24] MEDS: Insulin Lispro 100 UNIT/ML 3 ML VIAL SUBCUT (17:36)
[2020-11-24 21:40] LABS: Glucose, Whole Blood 132 mg/dL (60-115)
[2020-11-24 21:48] VITALS: BP 125/64; PULSE 72; TEMP 36.8; O2SAT 97
[2020-11-24] MEDS: traZODone HCL 100 MG TABLET PO (21:58)
[2020-11-25 06:00] VITALS: BP 127/85; PULSE 88; RESP 16; TEMP 36.4; O2SAT 95
--- NOTE | 2020-11-25 08:34 | HO.PSYCHPN ---
Subjective Subjective Date of Service: 11/26/20 Reason For Visit: Major Depressive Disorder Recurrent Subjective Notes: Conditional Voluntary Interim History: Pt interview with help of healthcare interpreter via iPad. Pt reports doing well. He blames family for being in hospital. He states he has never been aggressive towards them and does not understand why file for restraining order. He denies SI/HI. He understands he can't return to his house, in agreement to go to either rest home or skilled nursing. No behavioral concerns. Review of Systems Review of Systems Yes all other systems are reviewed and are negative Mental Status Exam Mental Status Exam Narrative: Appearance: casually groomed, fair hygiene in NAD Behavior:irritable psychomotor:no agitation or retardation noted Speech:(assessed with healthcare interpreter), rambling, pressured, spontaneous Thought process:tangetial Thought content:no signs of psychosis, not liking food in hospital and this affecting mood. Mood: upset Affect: congruent SI:denies HI:denies VH/AH:none Delusions:none Memory/cog: alert, oriented x 3. not formally tested. Diagnostics Vital Signs (24Hr): Vital Signs - 24 hr 11/25/20 18:00 Temperature 98.4 F Pulse Rate 75 Respiratory Rate 18 Pulse Oximetry 99 Body Mass Index 25.7 Labs Results: 11/24/20 07:05 Labs: Laboratory Results - last 48 hr 11/24/20 11/24/20 11/24/20 08:25 12:42 17:28 POC Glucose 117 H 117 H 220 H 11/24/20 11/25/20 11/25/20 21:35 10:02 12:18 POC Glucose 132 H 164 H 125 H 11/25/20 11/25/20 17:20 21:45 POC Glucose 172 H 232 H Medications Medications Current Medications Generic Name Dose Route Start Last Admin Trade Name Freq PRN Reason Stop Dose Admin Acetaminophen 650 mg 11/10/20 15:55 11/22/20 21:35 Acetaminophen 325 Mg Tablet PO 650 mg Q6H PRN Administration Headache/Pain Mild Scale (1-3) Al Hydroxide/Mg Hydroxide 30 ml 11/10/20 15:55 11/18/20 17:20 Magnesium Hydrox/Alum Hydrox 30 Ml Oral.Susp PO 30 ml Q6H PRN Administration Heartburn/Nausea Amlodipine Besylate 2.5 mg 11/24/20 09:00 11/25/20 10:18 Amlodipine Besylate 2.5 Mg Tablet PO 2.5 mg DAILY DUNIA Administration Protocol Amoxicillin/Clavulanate Potassium 875 mg 11/23/20 08:00 11/25/20 21:32 Amoxicillin/Potassium Clav 875 Mg Tablet PO 11/29/20 08:01 875 mg Q12H DUNIA Administration Escitalopram Oxalate 10 mg 11/11/20 09:00 11/25/20 10:08 Escitalopram Oxalate 10 Mg Tablet PO 10 mg DAILY DUNIA Administration Hydroxyzine HCl 25 mg 11/10/20 15:55 11/22/20 21:36 Hydroxyzine Hcl 25 Mg Tablet PO 25 mg Q6H PRN Administration Anxiety Insulin Human Lispro 0 unit 11/10/20 21:00 11/25/20 21:54 Insulin Lispro 100 Unit/Ml 3 Ml Vial SUBCUT 4 unit QIDACHS [facility] Administration Protocol Magnesium Hydroxide 30 ml 11/10/20 15:55 11/21/20 16:08 Milk Of Magnesia 30 Ml Oral.Susp PO 30 ml DAILY PRN Administration Constipation Metformin HCl 500 mg 11/23/20 09:00 11/25/20 10:09 Metformin Hcl 500 Mg Tablet PO 500 mg DAILY DUNIA Administration Naproxen 500 mg 11/22/20 21:00 11/25/20 21:32 Naproxen 500 Mg Tablet PO 500 mg BID DUNIA Administration Oxcarbazepine 300 mg 11/22/20 21:00 11/25/20 21:33 Oxcarbazepine 300 Mg Tablet PO 300 mg BID DUNIA Administration Simethicone 80 mg 11/21/20 17:00 11/25/20 21:33 Simethicone 80 Mg Tab.Chew PO 80 mg QIDWMHS DUNIA Administration Trazodone HCl 100 mg 11/17/20 21:00 11/25/20 21:33 Trazodone Hcl 100 Mg Tablet PO 100 mg BEDTIME DUNIA Administration Allergies Allergies Allergy/AdvReac Type Severity Reaction Status Date / Time No Known Allergies Allergy Verified 11/10/20 15:51 Assessment & Plan Assessment & Plan (1) Depression: Status: Acute Code(s): F32.9 - Major depressive disorder, single episode, unspecified (2) PTSD (post-traumatic stress disorder): Status: Acute Code(s): F43.10 - Post-traumatic stress disorder, unspecified (3) Diabetes: Status: Acute Code(s): E11.9 - Type 2 diabetes mellitus without complications (4) Ear pain: Status: Acute Code(s): H92.09 - Otalgia, unspecified ear Assessment and Plan: Bennett is a 65 year old male who presents with symptoms of depression, irritability, anxiety, flashbacks, hyperarousal, lack of sleep, perseverative thoughts, and nightmares. He was brought to [facility] following a verbal altercation with his in the context of ongoing marital issues, financial stress, housing instability, and lack of psychiatric treatment. He does not speak Greek and has language barriers living in [place] He has no past psychiatric treatment, [place] with his and three daughters. He has past trauma history from [place], [place] by [place]. He has multiple co-morbid medical issues including insulin dependent diabetes, hx of head injury, and leg pain. He is currently accepting medication management for symptoms of PTSD and insomnia. Lexapro was started at [facility] ED. Collateral information from daughter- pt very irritable, explosive at times, threatening family Plan: 1. Continue on lexapro 10 mg QD for sx of PTSD and trazodone 50 mg QHS PRN for insomnia. Monitor response to medications. 2. Start trileptal 300mg po BID for mood stabilization given concerns of pt's hx of irritability, explosive behaviors. 3. SW will work on housing, legal issues- aftercare planning 4. Discharge on stabilization. Patient seen. Chart reviewed. Discussed with team. Greater than 50% of the session was spent on counseling and/or coordination of care Reason for contiued inpatient stay Substantial Risk for: stable for discharge
[2020-11-25 10:06] LABS: Glucose, Whole Blood 164 mg/dL (60-115)
[2020-11-25] MEDS: Simethicone 80 MG TAB.CHEW PO ×4 (10:08→21:33)
[2020-11-25] MEDS: NaPROXEN 500 MG TABLET PO ×2 (10:08→21:32)
[2020-11-25] MEDS: Amoxicillin/Potassium Clav 875 MG TABLET PO ×2 (10:08→21:32)
[2020-11-25] MEDS: Escitalopram Oxalate 10 MG TABLET PO (10:08)
[2020-11-25] MEDS: OXcarbazepine 300 MG TABLET PO ×2 (10:08→21:33)
[2020-11-25] MEDS: metFORMIN HCl 500 MG TABLET PO (10:09)
[2020-11-25] MEDS: Insulin Lispro 100 UNIT/ML 3 ML VIAL SUBCUT ×3 (10:13→21:54)
[2020-11-25] MEDS: amLODIPine Besylate 2.5 MG TABLET PO (10:18)
[2020-11-25 12:23] LABS: Glucose, Whole Blood 125 mg/dL (60-115)
[2020-11-25 17:25] LABS: Glucose, Whole Blood 172 mg/dL (60-115)
[2020-11-25 18:00] VITALS: PULSE 75; RESP 18; TEMP 36.9; O2SAT 99
[2020-11-25] MEDS: traZODone HCL 100 MG TABLET PO (21:33)
[2020-11-25 21:53] LABS: Glucose, Whole Blood 232 mg/dL (60-115)
[2020-11-26 06:00] VITALS: BP 132/80; PULSE 78; RESP 16; TEMP 36.7; O2SAT 94
--- NOTE | 2020-11-26 08:37 | P.PNPSI_ITS ---
Subjective Subjective Date of Service: 11/26/20 Reason For Visit: Major Depressive Disorder Recurrent Interim History: Pt interview with help of educational interpreter via iPad. Pt in bed. He reports improved sleep. He reports tooth pain significantly decreased with medication- on antibiotics. He denies SI/HI. He reports eating well, although at times continues to complaints about food being tasteless. No behavioral concerns. Medication Compliance: Yes Side effects from medications: No Review of Systems Review of Systems Yes all other systems are reviewed and are negative Mental Status Exam Mental Status Exam Narrative: Appearance: casually groomed, fair hygiene in NAD Behavior:irritable psychomotor:no agitation or retardation noted Speech:(assessed with educational interpreter), rambling, pressured, spontaneous Thought process:tangetial Thought content:no signs of psychosis, not liking food in hospital and this affecting mood. Mood: upset Affect: congruent SI:denies HI:denies VH/AH:none Delusions:none Memory/cog: alert, oriented x 3. not formally tested. Diagnostics Vital Signs (24Hr): Vital Signs - 24 hr 11/25/20 18:00 Temperature 98.4 F Pulse Rate 75 Respiratory Rate 18 Pulse Oximetry 99 Body Mass Index 25.7 Labs Results: 11/24/20 07:05 Labs: Laboratory Results - last 48 hr 11/24/20 11/24/20 11/24/20 08:25 12:42 17:28 POC Glucose 117 H 117 H 220 H 11/24/20 11/25/20 11/25/20 21:35 10:02 12:18 POC Glucose 132 H 164 H 125 H 11/25/20 11/25/20 17:20 21:45 POC Glucose 172 H 232 H Medications Medications Current Medications Generic Name Dose Route Start Last Admin Trade Name Freq PRN Reason Stop Dose Admin Acetaminophen 650 mg 11/10/20 15:55 11/22/20 21:35 Acetaminophen 325 Mg Tablet PO 650 mg Q6H PRN Administration Headache/Pain Mild Scale (1-3) Al Hydroxide/Mg Hydroxide 30 ml 11/10/20 15:55 11/18/20 17:20 Magnesium Hydrox/Alum Hydrox 30 Ml Oral.Susp PO 30 ml Q6H PRN Administration Heartburn/Nausea Amlodipine Besylate 2.5 mg 11/24/20 09:00 11/25/20 10:18 Amlodipine Besylate 2.5 Mg Tablet PO 2.5 mg DAILY DUNIA Administration Protocol Amoxicillin/Clavulanate Potassium 875 mg 11/23/20 08:00 11/25/20 21:32 Amoxicillin/Potassium Clav 875 Mg Tablet PO 11/29/20 08:01 875 mg Q12H DUNIA Administration Escitalopram Oxalate 10 mg 11/11/20 09:00 11/25/20 10:08 Escitalopram Oxalate 10 Mg Tablet PO 10 mg DAILY DUNIA Administration Hydroxyzine HCl 25 mg 11/10/20 15:55 11/22/20 21:36 Hydroxyzine Hcl 25 Mg Tablet PO 25 mg Q6H PRN Administration Anxiety Insulin Human Lispro 0 unit 11/10/20 21:00 11/25/20 21:54 Insulin Lispro 100 Unit/Ml 3 Ml Vial SUBCUT 4 unit QIDACHS [facility] Administration Protocol Magnesium Hydroxide 30 ml 11/10/20 15:55 11/21/20 16:08 Milk Of Magnesia 30 Ml Oral.Susp PO 30 ml DAILY PRN Administration Constipation Metformin HCl 500 mg 11/23/20 09:00 11/25/20 10:09 Metformin Hcl 500 Mg Tablet PO 500 mg DAILY DUNIA Administration Naproxen 500 mg 11/22/20 21:00 11/25/20 21:32 Naproxen 500 Mg Tablet PO 500 mg BID DUNIA Administration Oxcarbazepine 300 mg 11/22/20 21:00 11/25/20 21:33 Oxcarbazepine 300 Mg Tablet PO 300 mg BID DUNIA Administration Simethicone 80 mg 11/21/20 17:00 11/25/20 21:33 Simethicone 80 Mg Tab.Chew PO 80 mg QIDWMHS DUNIA Administration Trazodone HCl 100 mg 11/17/20 21:00 11/25/20 21:33 Trazodone Hcl 100 Mg Tablet PO 100 mg BEDTIME DUNIA Administration Allergies Allergies Allergy/AdvReac Type Severity Reaction Status Date / Time No Known Allergies Allergy Verified 11/10/20 15:51 Assessment & Plan Assessment & Plan (1) Depression: Status: Acute Code(s): F32.9 - Major depressive disorder, single episode, unspecified (2) PTSD (post-traumatic stress disorder): Status: Acute Code(s): F43.10 - Post-traumatic stress disorder, unspecified (3) Diabetes: Status: Acute Code(s): E11.9 - Type 2 diabetes mellitus without complications (4) Ear pain: Status: Acute Code(s): H92.09 - Otalgia, unspecified ear Assessment and Plan: Bennett is a 65 year old male who presents with symptoms of depression, irritability, anxiety, flashbacks, hyperarousal, lack of sleep, perseverative thoughts, and nightmares. He was brought to [facility] following a verbal altercation with his in the context of ongoing marital issues, financial stress, housing instability, and lack of psychiatric treatment. He does not speak Stateless and has language barriers living in the [place] He has no past psychiatric treatment, [place] with his and three daughters. He has past trauma history from [place], [place]. He has multiple co-morbid medical issues including insulin dependent diabetes, hx of head injury, and leg pain. He is currently accepting medication management for symptoms of PTSD and insomnia. Lexapro was started at [facility] ED. Collateral information from daughter- pt very irritable, explosive at times, threatening family Plan: 1. Continue on lexapro 10 mg QD for sx of PTSD and trazodone 50 mg QHS PRN for insomnia. Monitor response to medications. 2. Start trileptal 300mg po BID for mood stabilization given concerns of pt's hx of irritability, explosive behaviors. 3. SW will work on housing, legal issues- aftercare planning 4. Discharge on stabilization. Patient seen. Chart reviewed. Discussed with team. Greater than 50% of the session was spent on counseling and/or coordination of care Reason for contiued inpatient stay Substantial Risk for: stable for discharge
[2020-11-26] MEDS: OXcarbazepine 300 MG TABLET PO ×2 (08:42→20:46)
[2020-11-26] MEDS: metFORMIN HCl 500 MG TABLET PO (08:42)
[2020-11-26] MEDS: Escitalopram Oxalate 10 MG TABLET PO (08:42)
[2020-11-26] MEDS: NaPROXEN 500 MG TABLET PO ×2 (08:42→20:46)
[2020-11-26] MEDS: Simethicone 80 MG TAB.CHEW PO ×3 (08:42→20:46)
[2020-11-26 08:43] LABS: Glucose, Whole Blood 114 mg/dL (60-115)
[2020-11-26] MEDS: amLODIPine Besylate 2.5 MG TABLET PO (08:43)
[2020-11-26] MEDS: Amoxicillin/Potassium Clav 875 MG TABLET PO ×2 (08:43→20:46)
[2020-11-26 12:21] LABS: Glucose, Whole Blood 130 mg/dL (60-115)
[2020-11-26] MEDS: Insulin Lispro 100 UNIT/ML 3 ML VIAL SUBCUT ×2 (17:23→21:36)
[2020-11-26 18:00] VITALS: BP 131/63; PULSE 84; RESP 18; TEMP 36.9
[2020-11-26 18:45] LABS: Glucose, Whole Blood 181 mg/dL (60-115)
[2020-11-26] MEDS: traZODone HCL 100 MG TABLET PO (20:46)
[2020-11-26 21:31] LABS: Glucose, Whole Blood 153 mg/dL (60-115)
[2020-11-26] MEDS: Acetaminophen 325 MG TABLET 650 MG PO (21:36)
[2020-11-27 06:00] VITALS: BP 160/72; PULSE 72; RESP 18; TEMP 37.2; O2SAT 95
--- NOTE | 2020-11-27 07:16 | P.PNPSI_ITS ---
Subjective Subjective Date of Service: 11/29/20 Reason For Visit: Major Depressive Disorder Recurrent Interim History: Pt interview with help of logging rafter laborer via iPad. Pt mostly in bed today. He reports having a good day. He does report he's tired of several interruptions but staff during 15 minutes checks and about the food, which he states is tasteless. He continues to report that family were the ones intimidating him and doesn't understand why there's a restraining order. No behavioral concerns in the unit. Review of Systems Review of Systems Yes all other systems are reviewed and are negative Mental Status Exam Mental Status Exam Narrative: Appearance: casually groomed, fair hygiene in NAD Behavior:irritable psychomotor:no agitation or retardation noted Speech:(assessed with logging rafter laborer), rambling, pressured, spontaneous Thought process:tangetial Thought content:no signs of psychosis, not liking food in hospital and this affecting mood. Mood: upset Affect: congruent SI:denies HI:denies VH/AH:none Delusions:none Memory/cog: alert, oriented x 3. not formally tested. Patient Appearance: Well Grooomed Patient Orientation: Person Level of Consciousness: Awake Patient Behavior: Cooperative Mood Description: Calm Affect Description: Constricted Patient Cognition Impaired: No Ability to Follow Directions: Good Speech Pattern: Clear (in Farsi) Memory Description: Intact Diagnostics Vital Signs (24Hr): Vital Signs - 24 hr 11/28/20 09:01 11/28/20 18:47 Temperature 98.3 F Pulse Rate 70 74 Respiratory Rate 18 Blood Pressure 134/72 127/64 Pulse Oximetry 97 Body Mass Index 25.7 Labs Results: 11/24/20 07:05 Labs: Laboratory Results - last 48 hr 11/27/20 11/27/20 11/27/20 09:52 13:08 17:36 POC Glucose 144 H 178 H 143 H 11/27/20 11/28/20 11/28/20 20:31 09:00 13:22 POC Glucose 201 H 110 155 H 11/28/20 11/28/20 16:54 21:30 POC Glucose 190 H 146 H Medications Medications Current Medications Generic Name Dose Route Start Last Admin Trade Name Freq PRN Reason Stop Dose Admin Acetaminophen 650 mg 11/10/20 15:55 11/27/20 21:10 Acetaminophen 325 Mg Tablet PO 650 mg Q6H PRN Administration Headache/Pain Mild Scale (1-3) Al Hydroxide/Mg Hydroxide 30 ml 11/10/20 15:55 11/18/20 17:20 Magnesium Hydrox/Alum Hydrox 30 Ml Oral.Susp PO 30 ml Q6H PRN Administration Heartburn/Nausea Amlodipine Besylate 2.5 mg 11/24/20 09:00 11/28/20 09:01 Amlodipine Besylate 2.5 Mg Tablet PO 2.5 mg DAILY DUNIA Administration Protocol Amoxicillin/Clavulanate Potassium 875 mg 11/23/20 08:00 11/28/20 21:35 Amoxicillin/Potassium Clav 875 Mg Tablet PO 11/29/20 08:01 875 mg Q12H DUNIA Administration Escitalopram Oxalate 10 mg 11/11/20 09:00 11/28/20 09:02 Escitalopram Oxalate 10 Mg Tablet PO 10 mg DAILY DUNIA Administration Hydroxyzine HCl 25 mg 11/10/20 15:55 11/22/20 21:36 Hydroxyzine Hcl 25 Mg Tablet PO 25 mg Q6H PRN Administration Anxiety Insulin Human Lispro 0 unit 11/10/20 21:00 11/28/20 21:34 Insulin Lispro 100 Unit/Ml 3 Ml Vial SUBCUT Not Given QIDACHS [facility] Protocol Magnesium Hydroxide 30 ml 11/10/20 15:55 11/21/20 16:08 Milk Of Magnesia 30 Ml Oral.Susp PO 30 ml DAILY PRN Administration Constipation Metformin HCl 500 mg 11/23/20 09:00 11/28/20 09:01 Metformin Hcl 500 Mg Tablet PO 500 mg DAILY DUNIA Administration Naproxen 500 mg 11/22/20 21:00 11/28/20 21:35 Naproxen 500 Mg Tablet PO 500 mg BID DUNIA Administration Oxcarbazepine 300 mg 11/22/20 21:00 11/28/20 21:35 Oxcarbazepine 300 Mg Tablet PO 300 mg BID DUNIA Administration Simethicone 80 mg 11/21/20 17:00 11/28/20 21:35 Simethicone 80 Mg Tab.Chew PO 80 mg QIDWMHS DUNIA Administration Trazodone HCl 100 mg 11/17/20 21:00 11/28/20 21:35 Trazodone Hcl 100 Mg Tablet PO 100 mg BEDTIME DUNIA Administration Allergies Allergies Allergy/AdvReac Type Severity Reaction Status Date / Time No Known Allergies Allergy Verified 11/10/20 15:51 Assessment & Plan Assessment & Plan (1) Depression: Status: Acute Code(s): F32.9 - Major depressive disorder, single episode, unspecified (2) PTSD (post-traumatic stress disorder): Status: Acute Code(s): F43.10 - Post-traumatic stress disorder, unspecified (3) Diabetes: Status: Acute Code(s): E11.9 - Type 2 diabetes mellitus without complications (4) Ear pain: Status: Acute Code(s): H92.09 - Otalgia, unspecified ear Assessment and Plan: Bennett is a 65 year old male who presents with symptoms of depression, irritability, anxiety, flashbacks, hyperarousal, lack of sleep, perseverative thoughts, and nightmares. He was brought to [facility] following a verbal altercation w ith his in the context of ongoing marital issues, financial stress, housing instability, and lack of psychiatric treatment. He does not speak [place] and has language barriers living in [place] He has no past psychiatric treatment, [place] with his and three daughters. [facility] [place]. He has multiple co-morbid medical issues including insulin dependent diabetes, hx of head injury, and leg pain. He is currently accepting medication management for symptoms of PTSD and insomnia. Lexapro was started at [facility] ED. Collateral information from daughter- pt very irritable, explosive at times, threatening family Plan: 1. Continue on lexapro 10 mg QD for sx of PTSD and trazodone 50 mg QHS PRN for insomnia. Monitor response to medications. 2. Start trileptal 300mg po BID for mood stabilization given concerns of pt's hx of irritability, explosive behaviors. 3. SW will work on housing, legal issues- aftercare planning 4. Discharge on stabilization. Patient seen. Chart reviewed. Discussed with team. Greater than 50% of the session was spent on counseling and/or coordination of care Reason for contiued inpatient stay Substantial Risk for: stable for discharge
[2020-11-27 09:57] LABS: Glucose, Whole Blood 144 mg/dL (60-115)
[2020-11-27] MEDS: Amoxicillin/Potassium Clav 875 MG TABLET PO ×2 (10:11→20:36)
[2020-11-27] MEDS: NaPROXEN 500 MG TABLET PO ×2 (10:11→20:34)
[2020-11-27] MEDS: OXcarbazepine 300 MG TABLET PO ×2 (10:12→20:36)
[2020-11-27] MEDS: metFORMIN HCl 500 MG TABLET PO (10:12)
[2020-11-27] MEDS: amLODIPine Besylate 2.5 MG TABLET PO (10:12)
[2020-11-27] MEDS: Escitalopram Oxalate 10 MG TABLET PO (10:12)
[2020-11-27] MEDS: Simethicone 80 MG TAB.CHEW PO ×4 (10:36→21:16)
[2020-11-27 13:13] LABS: Glucose, Whole Blood 178 mg/dL (60-115)
[2020-11-27] MEDS: Insulin Lispro 100 UNIT/ML 3 ML VIAL SUBCUT ×2 (13:28→21:11)
[2020-11-27 17:40] LABS: Glucose, Whole Blood 143 mg/dL (60-115)
[2020-11-27 18:00] VITALS: BP 137/65; PULSE 66; RESP 18; TEMP 36.8; O2SAT 98
[2020-11-27] MEDS: traZODone HCL 100 MG TABLET PO (20:36)
[2020-11-27 20:45] LABS: Glucose, Whole Blood 201 mg/dL (60-115)
[2020-11-27] MEDS: Acetaminophen 325 MG TABLET 650 MG PO (21:10)
[2020-11-28 06:00] VITALS: BP 136/64; PULSE 70; RESP 18; TEMP 36.6; O2SAT 95
--- NOTE | 2020-11-28 07:29 | P.PNPSI_ITS ---
Subjective Subjective Date of Service: 11/29/20 Reason For Visit: Major Depressive Disorder Recurrent Interim History: Pt interview with help of grease maker head via iPad. Pt mostly in bed today. He reports having a good day. He denies SI/HI. he reports sleeping better. He reports looking forward for discharge. no behavioral concerns. Review of Systems Review of Systems Yes all other systems are reviewed and are negative Mental Status Exam Mental Status Exam Narrative: Appearance: casually groomed, fair hygiene in NAD Behavior:irritable psychomotor:no agitation or retardation noted Speech:(assessed with grease maker head), rambling, pressured, spontaneous Thought process:tangetial Thought content:no signs of psychosis, not liking food in hospital and this affecting mood. Mood: upset Affect: congruent SI:denies HI:denies VH/AH:none Delusions:none Memory/cog: alert, oriented x 3. not formally tested. Patient Appearance: Well Grooomed Patient Orientation: Person Level of Consciousness: Awake Patient Behavior: Cooperative Mood Description: Calm Affect Description: Constricted Patient Cognition Impaired: No Ability to Follow Directions: Good Speech Pattern: Clear (in Farsi) Memory Description: Intact Diagnostics Vital Signs (24Hr): Vital Signs - 24 hr 11/28/20 09:01 11/28/20 18:47 Temperature 98.3 F Pulse Rate 70 74 Respiratory Rate 18 Blood Pressure 134/72 127/64 Pulse Oximetry 97 Body Mass Index 25.7 Labs Results: 11/24/20 07:05 Labs: Laboratory Results - last 48 hr 11/27/20 11/27/20 11/27/20 09:52 13:08 17:36 POC Glucose 144 H 178 H 143 H 11/27/20 11/28/20 11/28/20 20:31 09:00 13:22 POC Glucose 201 H 110 155 H 11/28/20 11/28/20 16:54 21:30 POC Glucose 190 H 146 H Medications Medications Current Medications Generic Name Dose Route Start Last Admin Trade Name Freq PRN Reason Stop Dose Admin Acetaminophen 650 mg 11/10/20 15:55 11/27/20 21:10 Acetaminophen 325 Mg Tablet PO 650 mg Q6H PRN Administration Headache/Pain Mild Scale (1-3) Al Hydroxide/Mg Hydroxide 30 ml 11/10/20 15:55 11/18/20 17:20 Magnesium Hydrox/Alum Hydrox 30 Ml Oral.Susp PO 30 ml Q6H PRN Administration Heartburn/Nausea Amlodipine Besylate 2.5 mg 11/24/20 09:00 11/28/20 09:01 Amlodipine Besylate 2.5 Mg Tablet PO 2.5 mg DAILY DUNIA Administration Protocol Amoxicillin/Clavulanate Potassium 875 mg 11/23/20 08:00 11/28/20 21:35 Amoxicillin/Potassium Clav 875 Mg Tablet PO 11/29/20 08:01 875 mg Q12H DUNIA Administration Escitalopram Oxalate 10 mg 11/11/20 09:00 11/28/20 09:02 Escitalopram Oxalate 10 Mg Tablet PO 10 mg DAILY DUNIA Administration Hydroxyzine HCl 25 mg 11/10/20 15:55 11/22/20 21:36 Hydroxyzine Hcl 25 Mg Tablet PO 25 mg Q6H PRN Administration Anxiety Insulin Human Lispro 0 unit 11/10/20 21:00 11/28/20 21:34 Insulin Lispro 100 Unit/Ml 3 Ml Vial SUBCUT Not Given QIDACHS [facility] Protocol Magnesium Hydroxide 30 ml 11/10/20 15:55 11/21/20 16:08 Milk Of Magnesia 30 Ml Oral.Susp PO 30 ml DAILY PRN Administration Constipation Metformin HCl 500 mg 11/23/20 09:00 11/28/20 09:01 Metformin Hcl 500 Mg Tablet PO 500 mg DAILY DUNIA Administration Naproxen 500 mg 11/22/20 21:00 11/28/20 21:35 Naproxen 500 Mg Tablet PO 500 mg BID DUNIA Administration Oxcarbazepine 300 mg 11/22/20 21:00 11/28/20 21:35 Oxcarbazepine 300 Mg Tablet PO 300 mg BID DUNIA Administration Simethicone 80 mg 11/21/20 17:00 11/28/20 21:35 Simethicone 80 Mg Tab.Chew PO 80 mg QIDWMHS DUNIA Administration Trazodone HCl 100 mg 11/17/20 21:00 11/28/20 21:35 Trazodone Hcl 100 Mg Tablet PO 100 mg BEDTIME DUNIA Administration Allergies Allergies Allergy/AdvReac Type Severity Reaction Status Date / Time No Known Allergies Allergy Verified 11/10/20 15:51 Assessment & Plan Assessment & Plan (1) Depression: Status: Acute Code(s): F32.9 - Major depressive disorder, single episode, unspecified (2) PTSD (post-traumatic stress disorder): Status: Acute Code(s): F43.10 - Post-traumatic stress disorder, unspecified (3) Diabetes: Status: Acute Code(s): E11.9 - Type 2 diabetes mellitus without complications (4) Ear pain: Status: Acute Code(s): H92.09 - Otalgia, unspecified ear Assessment and Plan: Bennett is a 65 year old male who presents with symptoms of depression, irritability, anxiety, flashbacks, hyperarousal, lack of sleep, perseverative thoughts, and nightmares. He was brought to [facility] following a verbal altercation with his in the context of ongoing marital issues, financial stress, housing instability, and lack of psychiatric treatment. He does not speak Brazilian and has language barriers living in the [place] He has no past psychiatric treatment, [place] [facility] [place] and three daughters. He has past trauma history from [place], [place]. He has multiple co-morbid medical issues including insulin dependent diabetes, hx of head injury, and leg pain. He is currently accepting medication management for symptoms of PTSD and insomnia. Lexapro was started at [facility] ED. Collateral information from daughter- pt very irritable, explosive at times, threatening family Plan: 1. Continue on lexapro 10 mg QD for sx of PTSD and trazodone 50 mg QHS PRN for insomnia. Monitor response to medications. 2. Start trileptal 300mg po BID for mood stabilization given concerns of pt's hx of irritability, explosive behaviors. 3. SW will work on housing, legal issues- aftercare planning 4. Discharge on stabilization. Patient seen. Chart reviewed. Discussed with team. Greater than 50% of the session was spent on counseling and/or coordination of care Reason for contiued inpatient stay Substantial Risk for: harm to self
[2020-11-28 09:01] VITALS: BP 134/72; PULSE 70
[2020-11-28] MEDS: Amoxicillin/Potassium Clav 875 MG TABLET PO ×2 (09:01→21:35)
[2020-11-28] MEDS: metFORMIN HCl 500 MG TABLET PO (09:01)
[2020-11-28] MEDS: amLODIPine Besylate 2.5 MG TABLET PO (09:01)
[2020-11-28] MEDS: Simethicone 80 MG TAB.CHEW PO ×4 (09:02→21:35)
[2020-11-28] MEDS: OXcarbazepine 300 MG TABLET PO ×2 (09:02→21:35)
[2020-11-28] MEDS: NaPROXEN 500 MG TABLET PO ×2 (09:02→21:35)
[2020-11-28] MEDS: Escitalopram Oxalate 10 MG TABLET PO (09:02)
[2020-11-28 09:09] LABS: Glucose, Whole Blood 110 mg/dL (60-115)
[2020-11-28 13:31] LABS: Glucose, Whole Blood 155 mg/dL (60-115)
[2020-11-28] MEDS: Insulin Lispro 100 UNIT/ML 3 ML VIAL SUBCUT ×2 (13:32→18:42)
[2020-11-28 16:59] LABS: Glucose, Whole Blood 190 mg/dL (60-115)
[2020-11-28 18:47] VITALS: BP 127/64; PULSE 74; RESP 18; TEMP 36.8; O2SAT 97
[2020-11-28 21:35] LABS: Glucose, Whole Blood 146 mg/dL (60-115)
[2020-11-28] MEDS: traZODone HCL 100 MG TABLET PO (21:35)
[2020-11-29 06:00] VITALS: BP 124/60; PULSE 67; RESP 18; TEMP 36.7; O2SAT 96
--- NOTE | 2020-11-29 07:17 | HO.PSYCHPN ---
Subjective Subjective Date of Service: 11/29/20 Reason For Visit: Major Depressive Disorder Recurrent Interim History: Pt interview with help of box printing machine operator via iPad. Pt mostly in bed today. He reports having a good day. He denies SI/HI. he reports sleeping better. He reports looking forward for discharge. no behavioral concerns. Medication Compliance: Yes Side effects from medications: No Review of Systems Review of Systems Yes all other systems are reviewed and are negative Mental Status Exam Mental Status Exam Narrative: Appearance: casually groomed, fair hygiene in NAD Behavior:irritable psychomotor:no agitation or retardation noted Speech:(assessed with box printing machine operator), rambling, pressured, spontaneous Thought process:tangetial Thought content:no signs of psychosis, not liking food in hospital and this affecting mood. Mood: upset Affect: congruent SI:denies HI:denies VH/AH:none Delusions:none Memory/cog: alert, oriented x 3. not formally tested. Patient Appearance: Well Grooomed Patient Orientation: Person Level of Consciousness: Awake Patient Behavior: Cooperative Mood Description: Calm Affect Description: Constricted Patient Cognition Impaired: No Ability to Follow Directions: Good Speech Pattern: Clear (in Farsi) Memory Description: Intact Diagnostics Vital Signs (24Hr): Vital Signs - 24 hr 11/28/20 09:01 11/28/20 18:47 Temperature 98.3 F Pulse Rate 70 74 Respiratory Rate 18 Blood Pressure 134/72 127/64 Pulse Oximetry 97 Body Mass Index 25.7 Labs Results: 11/24/20 07:05 Labs: Laboratory Results - last 48 hr 11/27/20 11/27/20 11/27/20 09:52 13:08 17:36 POC Glucose 144 H 178 H 143 H 11/27/20 11/28/20 11/28/20 20:31 09:00 13:22 POC Glucose 201 H 110 155 H 11/28/20 11/28/20 16:54 21:30 POC Glucose 190 H 146 H Medications Medications Current Medications Generic Name Dose Route Start Last Admin Trade Name Freq PRN Reason Stop Dose Admin Acetaminophen 650 mg 11/10/20 15:55 11/27/20 21:10 Acetaminophen 325 Mg Tablet PO 650 mg Q6H PRN Administration Headache/Pain Mild Scale (1-3) Al Hydroxide/Mg Hydroxide 30 ml 11/10/20 15:55 11/18/20 17:20 Magnesium Hydrox/Alum Hydrox 30 Ml Oral.Susp PO 30 ml Q6H PRN Administration Heartburn/Nausea Amlodipine Besylate 2.5 mg 11/24/20 09:00 11/28/20 09:01 Amlodipine Besylate 2.5 Mg Tablet PO 2.5 mg DAILY DUNIA Administration Protocol Amoxicillin/Clavulanate Potassium 875 mg 11/23/20 08:00 11/28/20 21:35 Amoxicillin/Potassium Clav 875 Mg Tablet PO 11/29/20 08:01 875 mg Q12H DUNIA Administration Escitalopram Oxalate 10 mg 11/11/20 09:00 11/28/20 09:02 Escitalopram Oxalate 10 Mg Tablet PO 10 mg DAILY DUNIA Administration Hydroxyzine HCl 25 mg 11/10/20 15:55 11/22/20 21:36 Hydroxyzine Hcl 25 Mg Tablet PO 25 mg Q6H PRN Administration Anxiety Insulin Human Lispro 0 unit 11/10/20 21:00 11/28/20 21:34 Insulin Lispro 100 Unit/Ml 3 Ml Vial SUBCUT Not Given QIDACHS [facility] Protocol Magnesium Hydroxide 30 ml 11/10/20 15:55 11/21/20 16:08 Milk Of Magnesia 30 Ml Oral.Susp PO 30 ml DAILY PRN Administration Constipation Metformin HCl 500 mg 11/23/20 09:00 11/28/20 09:01 Metformin Hcl 500 Mg Tablet PO 500 mg DAILY DUNIA Administration Naproxen 500 mg 11/22/20 21:00 11/28/20 21:35 Naproxen 500 Mg Tablet PO 500 mg BID DUNIA Administration Oxcarbazepine 300 mg 11/22/20 21:00 11/28/20 21:35 Oxcarbazepine 300 Mg Tablet PO 300 mg BID DUNIA Administration Simethicone 80 mg 11/21/20 17:00 11/28/20 21:35 Simethicone 80 Mg Tab.Chew PO 80 mg QIDWMHS [facility] Administration Trazodone HCl 100 mg 11/17/20 21:00 11/28/20 21:35 Trazodone Hcl 100 Mg Tablet PO 100 mg BEDTIME DUNIA Administration Allergies Allergies Allergy/AdvReac Type Severity Reaction Status Date / Time No Known Allergies Allergy Verified 11/10/20 15:51 Assessment & Plan Assessment & Plan (1) Depression: Status: Acute Code(s): F32.9 - Major depressive disorder, single episode, unspecified (2) PTSD (post-traumatic stress disorder): Status: Acute Code(s): F43.10 - Post-traumatic stress disorder, unspecified (3) Diabetes: Status: Acute Code(s): E11.9 - Type 2 diabetes mellitus without complications (4) Ear pain: Status: Acute Code(s): H92.09 - Otalgia, unspecified ear Assessment and Plan: Bennett is a 65 year old male who presents with symptoms of depression, irritability, anxiety, flashbacks, hyperarousal, lack of sleep, perseverative thoughts, and nightmares. He was brought to [facility] following a verbal altercation with his in the context of ongoing marital issues, financial stress, housing instability, and lack of psychiatric treatment. He does not speak Slovak and has language barriers [place] He has no past psychiatric treatment, [place] [facility] [facility] [place] with his and three daughters. He has past trauma history from [place], [place]. He has multiple co-morbid medical issues including insulin dependent diabetes, hx of head injury, and leg pain. He is currently accepting medication management for symptoms of PTSD and insomnia. Lexapro was started at [facility] ED. Collateral information from daughter- pt very irritable, explosive at times, threatening family Plan: 1. Continue on lexapro 10 mg QD for sx of PTSD and trazodone 50 mg QHS PRN for insomnia. Monitor response to medications. 2. Start trileptal 300mg po BID for mood stabilization given concerns of pt's hx of irritability, explosive behaviors. 3. SW will work on housing, legal issues- aftercare planning 4. Discharge on stabilization. Patient seen. Chart reviewed. Discussed with team. Greater than 50% of the session was spent on counseling and/or coordination of care Reason for contiued inpatient stay Substantial Risk for: stable for discharge
[2020-11-29] MEDS: Escitalopram Oxalate 10 MG TABLET PO (08:31)
[2020-11-29] MEDS: Amoxicillin/Potassium Clav 875 MG TABLET PO (08:31)
[2020-11-29] MEDS: NaPROXEN 500 MG TABLET PO ×2 (08:31→21:21)
[2020-11-29 08:32] VITALS: BP 124/60; PULSE 67
[2020-11-29 08:32] LABS: Glucose, Whole Blood 112 mg/dL (60-115)
[2020-11-29] MEDS: OXcarbazepine 300 MG TABLET PO ×2 (08:32→21:21)
[2020-11-29] MEDS: amLODIPine Besylate 2.5 MG TABLET PO (08:32)
[2020-11-29] MEDS: Simethicone 80 MG TAB.CHEW PO ×4 (08:33→21:21)
[2020-11-29] MEDS: metFORMIN HCl 500 MG TABLET PO (08:33)
--- NOTE | 2020-11-29 08:50 | HO.PSYCHPN ---
Subjective Subjective Date of Service: 11/30/20 Reason For Visit: Major Depressive Disorder Recurrent Interim History: Pt interview with help of radiologic technologist mammogram via iPad. Pt continues to report that he is doing better. He denies suicidal or homicidal ideation. He reports sleeping better as well. Tooth pain much less with antibiotic. He reports some back pain but naproxen helpful. He has been mostly in his room, visible in the afternoons. awaiting placement. Medication Compliance: Yes Side effects from medications: No Attending Groups: Intermittent Review of Systems Review of Systems Yes all other systems are reviewed and are negative Mental Status Exam Mental Status Exam Narrative: Appearance: casually groomed, fair hygiene in NAD Behavior:irritable psychomotor:no agitation or retardation noted Speech:(assessed with radiologic technologist mammogram), rambling, pressured, spontaneous Thought process:tangetial Thought content:no signs of psychosis, not liking food in hospital and this affecting mood. Mood: upset Affect: congruent SI:denies HI:denies VH/AH:none Delusions:none Memory/cog: alert, oriented x 3. not formally tested. Patient Appearance: Well Grooomed Patient Orientation: Person Level of Consciousness: Awake Patient Behavior: Cooperative Mood Description: Calm Affect Description: Constricted Patient Cognition Impaired: No Ability to Follow Directions: Good Speech Pattern: Clear (in Farsi) Memory Description: Intact Diagnostics Vital Signs (24Hr): Vital Signs - 24 hr 11/29/20 20:55 11/30/20 06:00 11/30/20 08:40 Temperature 98.6 F 97.8 F Pulse Rate 72 75 75 Respiratory Rate 18 16 Blood Pressure 150/69 H 124/56 L 124/56 L Pulse Oximetry 96 97 Body Mass Index 25.7 Labs Results: 11/24/20 07:05 Labs: Laboratory Results - last 48 hr 11/28/20 11/28/20 11/28/20 09:00 13:22 16:54 POC Glucose 110 155 H 190 H 11/28/20 11/29/20 11/29/20 21:30 08:28 17:24 POC Glucose 146 H 112 131 H 11/29/20 11/30/20 21:07 08:37 POC Glucose 171 H 99 Medications Medications Current Medications Generic Name Dose Route Start Last Admin Trade Name Freq PRN Reason Stop Dose Admin Acetaminophen 650 mg 11/10/20 15:55 11/27/20 21:10 Acetaminophen 325 Mg Tablet PO 650 mg Q6H PRN Administration Headache/Pain Mild Scale (1-3) Al Hydroxide/Mg Hydroxide 30 ml 11/10/20 15:55 11/18/20 17:20 Magnesium Hydrox/Alum Hydrox 30 Ml Oral.Susp PO 30 ml Q6H PRN Administration Heartburn/Nausea Amlodipine Besylate 2.5 mg 11/24/20 09:00 11/30/20 08:40 Amlodipine Besylate 2.5 Mg Tablet PO 2.5 mg DAILY DUNIA Administration Protocol Escitalopram Oxalate 10 mg 11/11/20 09:00 11/30/20 08:39 Escitalopram Oxalate 10 Mg Tablet PO 10 mg DAILY DUNIA Administration Hydroxyzine HCl 25 mg 11/10/20 15:55 11/22/20 21:36 Hydroxyzine Hcl 25 Mg Tablet PO 25 mg Q6H PRN Administration Anxiety Insulin Human Lispro 0 unit 11/10/20 21:00 11/30/20 08:41 Insulin Lispro 100 Unit/Ml 3 Ml Vial SUBCUT Not Given [facility] Protocol Magnesium Hydroxide 30 ml 11/10/20 15:55 11/21/20 16:08 Milk Of Magnesia 30 Ml Oral.Susp PO 30 ml DAILY PRN Administration Constipation Metformin HCl 500 mg 11/23/20 09:00 11/30/20 08:40 Metformin Hcl 500 Mg Tablet PO 500 mg DAILY DUNIA Administration Naproxen 500 mg 11/22/20 21:00 11/30/20 08:40 Naproxen 500 Mg Tablet PO 500 mg BID DUNIA Administration Oxcarbazepine 300 mg 11/22/20 21:00 11/30/20 08:40 Oxcarbazepine 300 Mg Tablet PO 300 mg BID DUNIA Administration Simethicone 80 mg 11/21/20 17:00 11/30/20 08:39 Simethicone 80 Mg Tab.Chew PO 80 mg QIDWMHS DUNIA Administration Trazodone HCl 100 mg 11/17/20 21:00 11/29/20 21:21 Trazodone Hcl 100 Mg Tablet PO 100 mg BEDTIME DUNIA Administration Allergies Allergies Allergy/AdvReac Type Severity Reaction Status Date / Time No Known Allergies Allergy Verified 11/10/20 15:51 Assessment & Plan Assessment & Plan (1) Depression: Status: Acute Code(s): F32.9 - Major depressive disorder, single episode, unspecified (2) PTSD (post-traumatic stress disorder): Status: Acute Code(s): F43.10 - Post-traumatic stress disorder, unspecified (3) Diabetes: Status: Acute Code(s): E11.9 - Type 2 diabetes mellitus without complications (4) Ear pain: Status: Acute Code(s): H92.09 - Otalgia, unspecified ear Assessment and Plan: Bennett is a 65 year old male who presents with symptoms of depression, irritability, anxiety, flashbacks, hyperarousal, lack of sleep, perseverative thoughts, and nightmares. He was brought to [facility] following a verbal altercation with his in the context of ongoing marital issues, financial stress, housing instability, and lack of psychiatric treatment. He does not speak Armenian and has language barriers [place] He has no past psychiatric treatment, [place] [facility] [place] with his and three daughters. He has past trauma history from [place], [place]. He has multiple co-morbid medical issues including insulin dependent diabetes, hx of head injury, and leg pain. He is currently accepting medication management for symptoms of PTSD and insomnia. Lexapro was started at [facility] ED. Collateral information from daughter- pt very irritable, explosive at times, threatening family Plan: 1. Continue on lexapro 10 mg QD for sx of PTSD and trazodone 50 mg QHS PRN for insomnia. Monitor response to medications. 2. Start trileptal 300mg po BID for mood stabilization given concerns of pt's hx of irritability, explosive behaviors. 3. SW will work on housing, legal issues- aftercare planning 4. Discharge on stabilization. Patient seen. Chart reviewed. Discussed with team. Greater than 50% of the session was spent on counseling and/or coordination of care Reason for contiued inpatient stay Substantial Risk for: stable for discharge
[2020-11-29 17:29] LABS: Glucose, Whole Blood 131 mg/dL (60-115)
[2020-11-29 20:55] VITALS: BP 150/69; PULSE 72; RESP 18; TEMP 37; O2SAT 96
[2020-11-29 21:12] LABS: Glucose, Whole Blood 171 mg/dL (60-115)
[2020-11-29] MEDS: Insulin Lispro 100 UNIT/ML 3 ML VIAL SUBCUT (21:21)
[2020-11-29] MEDS: traZODone HCL 100 MG TABLET PO (21:21)
[2020-11-30 06:00] VITALS: BP 124/56; PULSE 75; RESP 16; TEMP 36.6; O2SAT 97
[2020-11-30] MEDS: Simethicone 80 MG TAB.CHEW PO ×4 (08:39→21:10)
[2020-11-30] MEDS: Escitalopram Oxalate 10 MG TABLET PO (08:39)
[2020-11-30 08:40] VITALS: BP 124/56; PULSE 75
[2020-11-30] MEDS: metFORMIN HCl 500 MG TABLET PO (08:40)
[2020-11-30] MEDS: amLODIPine Besylate 2.5 MG TABLET PO (08:40)
[2020-11-30] MEDS: OXcarbazepine 300 MG TABLET PO ×2 (08:40→21:11)
[2020-11-30] MEDS: NaPROXEN 500 MG TABLET PO ×2 (08:40→21:11)
--- NOTE | 2020-11-30 08:40 | P.PNPSI_ITS ---
Subjective Subjective Date of Service: 12/01/20 Reason For Visit: Major Depressive Disorder Recurrent Subjective Notes: Conditional Voluntary Interim History: Pt interview with help of fire alarm mechanic via iPad. Pt continues to report that he is doing better. He denies suicidal or homicidal ideation. He reports sleeping better as well. Tooth pain much less with antibiotic. He reports some back pain but naproxen helpful. He has been mostly in his room, visible in the afternoons. awaiting placement. Medication Compliance: Yes Side effects from medications: No Review of Systems Review of Systems Yes all other systems are reviewed and are negative Mental Status Exam Mental Status Exam Narrative: Appearance: casually groomed, fair hygiene in NAD Behavior:irritable psychomotor:no agitation or retardation noted Speech:(assessed with fire alarm mechanic), rambling, pressured, spontaneous Thought process:tangetial Thought content:no signs of psychosis, not liking food in hospital and this affecting mood. Mood: upset Affect: congruent SI:denies HI:denies VH/AH:none Delusions:none Memory/cog: alert, oriented x 3. not formally tested. Patient Appearance: Well Grooomed Patient Orientation: Person Level of Consciousness: Awake Patient Behavior: Cooperative Mood Description: Calm Affect Description: Constricted Patient Cognition Impaired: No Ability to Follow Directions: Good Speech Pattern: Clear (in Farsi) Memory Description: Intact Diagnostics Vital Signs (24Hr): Vital Signs - 24 hr 11/30/20 20:51 11/30/20 21:55 12/01/20 08:37 Temperature 98.9 F Pulse Rate 88 78 79 Respiratory Rate 18 16 Blood Pressure 174/81 H 161/74 H 153/73 H Pulse Oximetry 94 Body Mass Index 25.7 Labs Results: 11/24/20 07:05 Labs: Laboratory Results - last 48 hr 11/29/20 11/29/20 11/30/20 17:24 21:07 08:37 POC Glucose 131 H 171 H 99 11/30/20 11/30/20 11/30/20 12:45 17:47 20:48 POC Glucose 179 H 174 H 145 H Medications Medications Current Medications Generic Name Dose Route Start Last Admin Trade Name Freq PRN Reason Stop Dose Admin Acetaminophen 650 mg 11/10/20 15:55 11/30/20 21:25 Acetaminophen 325 Mg Tablet PO 650 mg Q6H PRN Administration Headache/Pain Mild Scale (1-3) Al Hydroxide/Mg Hydroxide 30 ml 11/10/20 15:55 11/18/20 17:20 Magnesium Hydrox/Alum Hydrox 30 Ml Oral.Susp PO 30 ml Q6H PRN Administration Heartburn/Nausea Amlodipine Besylate 2.5 mg 11/24/20 09:00 12/01/20 08:37 Amlodipine Besylate 2.5 Mg Tablet PO 2.5 mg DAILY DUNIA Administration Protocol Escitalopram Oxalate 10 mg 11/11/20 09:00 12/01/20 08:38 Escitalopram Oxalate 10 Mg Tablet PO 10 mg DAILY DUNIA Administration Hydroxyzine HCl 25 mg 11/10/20 15:55 11/30/20 21:25 Hydroxyzine Hcl 25 Mg Tablet PO 25 mg Q6H PRN Administration Anxiety Insulin Human Lispro 0 unit 11/10/20 21:00 12/01/20 08:36 Insulin Lispro 100 Unit/Ml 3 Ml Vial SUBCUT Not Given QIDACHS [facility] Protocol Magnesium Hydroxide 30 ml 11/10/20 15:55 11/30/20 21:25 Milk Of Magnesia 30 Ml Oral.Susp PO 30 ml DAILY PRN Administration Constipation Metformin HCl 500 mg 11/23/20 09:00 12/01/20 08:38 Metformin Hcl 500 Mg Tablet PO 500 mg DAILY DUNIA Administration Naproxen 500 mg 11/22/20 21:00 12/01/20 08:37 Naproxen 500 Mg Tablet PO 500 mg BID DUNIA Administration Oxcarbazepine 300 mg 11/22/20 21:00 12/01/20 08:36 Oxcarbazepine 300 Mg Tablet PO 300 mg BID DUNIA Administration Simethicone 80 mg 11/21/20 17:00 12/01/20 08:35 Simethicone 80 Mg Tab.Chew PO 80 mg QIDWMHS DUNIA Administration Trazodone HCl 100 mg 11/17/20 21:00 11/30/20 21:10 Trazodone Hcl 100 Mg Tablet PO 100 mg BEDTIME DUNIA Administration Allergies Allergies Allergy/AdvReac Type Severity Reaction Status Date / Time No Known Allergies Allergy Verified 11/10/20 15:51 Assessment & Plan Assessment & Plan (1) Depression: Status: Acute Code(s): F32.9 - Major depressive disorder, single episode, unspecified (2) PTSD (post-traumatic stress disorder): Status: Acute Code(s): F43.10 - Post-traumatic stress disorder, unspecified (3) Diabetes: Status: Acute Code(s): E11.9 - Type 2 diabetes mellitus without complications (4) Ear pain: Status: Acute Code(s): H92.09 - Otalgia, unspecified ear Assessment and Plan: Bennett is a 65 year old male who presents with symptoms of depression, irritability, anxiety, flashbacks, hyperarousal, lack of sleep, perseverative thoughts, and nightmares. He was brought to [facility] following a verbal altercation with his in the context of ongoing marital issues, financial stress, housing instability, and lack of psychiatric treatment. He does not speak Burmese and has language barriers living in [place] He has no past psychiatric treatment, [place] with his and three daughters. He has past [place], [place]. He has multiple co-morbid medical issues including insulin dependent diabetes, hx of head injury, and leg pain. He is currently accepting medication management for symptoms of PTSD and insomnia. Lexapro was started at [facility] ED. Collateral information from daughter- pt very irritable, explosive at times, threatening family Plan: 1. Continue on lexapro 10 mg QD for sx of PTSD and trazodone 50 mg QHS PRN for insomnia. Monitor response to medications. 2. Start trileptal 300mg po BID for mood stabilization given concerns of pt's hx of irritability, explosive behaviors. 3. SW will work on housing, legal issues- aftercare planning 4. Discharge on stabilization. Patient seen. Chart reviewed. Discussed with team. Greater than 50% of the session was spent on counseling and/or coordination of care Reason for contiued inpatient stay Substantial Risk for: stable for discharge
[2020-11-30 08:41] LABS: Glucose, Whole Blood 99 mg/dL (60-115)
[2020-11-30 12:50] LABS: Glucose, Whole Blood 179 mg/dL (60-115)
[2020-11-30] MEDS: Insulin Lispro 100 UNIT/ML 3 ML VIAL SUBCUT ×2 (12:54→17:54)
[2020-11-30 17:51] LABS: Glucose, Whole Blood 174 mg/dL (60-115)
[2020-11-30 20:51] VITALS: BP 174/81; PULSE 88; RESP 18; TEMP 37.2; O2SAT 94
[2020-11-30 20:52] LABS: Glucose, Whole Blood 145 mg/dL (60-115)
[2020-11-30] MEDS: traZODone HCL 100 MG TABLET PO (21:10)
[2020-11-30] MEDS: hydrOXYzine HCL 25 MG TABLET PO (21:25)
[2020-11-30] MEDS: Acetaminophen 325 MG TABLET 650 MG PO (21:25)
[2020-11-30] MEDS: Milk of Magnesia 30 ML ORAL.SUSP PO (21:25)
[2020-11-30 21:55] VITALS: BP 161/74; PULSE 78; RESP 16
[2020-12-01 06:00] VITALS: BP 153/73; PULSE 79; RESP 16; TEMP 36.7; O2SAT 98
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
[2020-12-01] MEDS: Simethicone 80 MG TAB.CHEW PO ×4 (08:35→21:52)
[2020-12-01] MEDS: OXcarbazepine 300 MG TABLET PO ×2 (08:36→21:52)
[2020-12-01 08:37] VITALS: BP 153/73; PULSE 79
[2020-12-01] MEDS: amLODIPine Besylate 2.5 MG TABLET PO (08:37)
[2020-12-01] MEDS: NaPROXEN 500 MG TABLET PO ×2 (08:37→21:52)
[2020-12-01] MEDS: metFORMIN HCl 500 MG TABLET PO ×2 (08:38→17:17)
[2020-12-01] MEDS: Escitalopram Oxalate 10 MG TABLET PO (08:38)
[2020-12-01 08:44] LABS: Glucose, Whole Blood 93 mg/dL (60-115)
[2020-12-01 09:14] LABS: Creatinine Clr Calc Pharmacy 59.6; Estimated Glomerular Filt Rate > 60
[2020-12-01 13:27] LABS: Glucose, Whole Blood 148 mg/dL (60-115)
[2020-12-01] MEDS: Magnesium Citrate 300 ML SOLUTION PO (16:10)
[2020-12-01 17:16] LABS: Glucose, Whole Blood 152 mg/dL (60-115)
[2020-12-01] MEDS: Insulin Lispro 100 UNIT/ML 3 ML VIAL SUBCUT (17:17)
[2020-12-01] MEDS: Acetaminophen 325 MG TABLET 650 MG PO (17:31)
[2020-12-01 18:00] VITALS: BP 127/63; PULSE 96; TEMP 37.1; O2SAT 96
[2020-12-01 21:25] LABS: Glucose, Whole Blood 153 mg/dL (60-115)
[2020-12-01] MEDS: traZODone HCL 100 MG TABLET PO (21:52)
[2020-12-01] MEDS: Sennosides/Docusate Sodium TABLET 1 TAB PO (21:52)
[2020-12-02 06:00] VITALS: BP 127/63; PULSE 66; RESP 16; TEMP 36.7; O2SAT 94
[2020-12-02] MEDS: OXcarbazepine 300 MG TABLET PO ×2 (08:13→21:18)
[2020-12-02] MEDS: metFORMIN HCl 500 MG TABLET PO ×2 (08:13→17:37)
[2020-12-02] MEDS: NaPROXEN 500 MG TABLET PO ×2 (08:13→21:18)
[2020-12-02] MEDS: Simethicone 80 MG TAB.CHEW PO ×4 (08:13→21:19)
[2020-12-02 08:14] VITALS: BP 127/63; PULSE 66
[2020-12-02 08:14] LABS: Lactic Acid 0.7 mmol/L (0.5-2.0)
[2020-12-02] MEDS: amLODIPine Besylate 2.5 MG TABLET PO (08:14)
[2020-12-02] MEDS: Escitalopram Oxalate 10 MG TABLET PO (08:15)
[2020-12-02 08:22] LABS: Glucose, Whole Blood 89 mg/dL (60-115)
--- NOTE | 2020-12-02 08:31 | P.PNPSI_ITS ---
Subjective Subjective Date of Service: 12/03/20 Reason For Visit: Major Depressive Disorder Recurrent Interim History: Pt interview with help of rn medication via iPad. Pt continues to report that he is doing better. He denies suicidal or homicidal ideation. He reports sleeping better as well. Tooth pain much less with antibiotic. He reports some back pain but naproxen helpful. He has been mostly in his room, visible in the afternoons. awaiting placement. Pt interview for [facility] but he declined doing chores. No beds in prison. Review of Systems Review of Systems Yes all other systems are reviewed and are negative Mental Status Exam Mental Status Exam Narrative: Appearance: casually groomed, fair hygiene in NAD Behavior:irritable psychomotor:no agitation or retardation noted Speech:(assessed with rn medication), rambling, pressured, spontaneous Thought process:tangetial Thought content:no signs of psychosis, not liking food in hospital and this affecting mood. Mood: upset Affect: congruent SI:denies HI:denies VH/AH:none Delusions:none Memory/cog: alert, oriented x 3. not formally tested. Patient Appearance: Well Grooomed Patient Orientation: Person Level of Consciousness: Awake Patient Behavior: Cooperative Mood Description: Calm Affect Description: Constricted Patient Cognition Impaired: No Ability to Follow Directions: Good Speech Pattern: Clear (in Farsi) Memory Description: Intact Diagnostics Vital Signs (24Hr): Vital Signs - 24 hr 12/02/20 18:00 Temperature 98.0 F Pulse Rate 84 Respiratory Rate 18 Blood Pressure 145/74 H Pulse Oximetry 97 Body Mass Index 25.7 Labs Results: 12/01/20 08:27 Labs: Laboratory Results - last 48 hr 12/01/20 12/01/20 12/01/20 08:27 08:28 13:24 Creatinine 1.06 Estim Creat Clear Calc 59.6 Estimated GFR > 60 POC Glucose 93 148 H Estimat Average Glucose Hemoglobin A1c % Lactic Acid 12/01/20 12/01/20 12/02/20 17:09 21:21 07:12 Creatinine Estim Creat Clear Calc Estimated GFR POC Glucose 152 H 153 H Estimat Average Glucose 160 Hemoglobin A1c % 7.2 Lactic Acid 12/02/20 12/02/20 12/02/20 07:12 08:10 12:13 Creatinine Estim Creat Clear Calc Estimated GFR POC Glucose 89 160 H Estimat Average Glucose Hemoglobin A1c % Lactic Acid 0.7 12/02/20 12/02/20 17:30 21:22 Creatinine Estim Creat Clear Calc Estimated GFR POC Glucose 175 H 90 Estimat Average Glucose Hemoglobin A1c % Lactic Acid Medications Medications Current Medications Generic Name Dose Route Start Last Admin Trade Name Boq PRN Reason Stop Dose Admin Acetaminophen 650 mg 11/10/20 15:55 12/01/20 17:31 Acetaminophen 325 Mg Tablet PO 650 mg Q6H PRN Administration Headache/Pain Mild Scale (1-3) Al Hydroxide/Mg Hydroxide 30 ml 11/10/20 15:55 11/18/20 17:20 Magnesium Hydrox/Alum Hydrox 30 Ml Oral.Susp PO 30 ml Q6H PRN Administration Heartburn/Nausea Amlodipine Besylate 2.5 mg 11/24/20 09:00 12/02/20 08:14 Amlodipine Besylate 2.5 Mg Tablet PO 2.5 mg DAILY DUNIA Administration Protocol Escitalopram Oxalate 10 mg 11/11/20 09:00 12/02/20 08:15 Escitalopram Oxalate 10 Mg Tablet PO 10 mg DAILY DUNIA Administration Hydroxyzine HCl 25 mg 11/10/20 15:55 11/30/20 21:25 Hydroxyzine Hcl 25 Mg Tablet PO 25 mg Q6H PRN Administration Anxiety Insulin Human Lispro 0 unit 11/10/20 21:00 12/02/20 22:02 Insulin Lispro 100 Unit/Ml 3 Ml Vial SUBCUT Not Given QIDACHS [facility] Protocol Magnesium Hydroxide 30 ml 11/10/20 15:55 11/30/20 21:25 Milk Of Magnesia 30 Ml Oral.Susp PO 30 ml DAILY PRN Administration Constipation Metformin HCl 500 mg 12/01/20 17:00 12/02/20 17:37 Metformin Hcl 500 Mg Tablet PO 500 mg BIDWM DUNIA Administration Naproxen 500 mg 11/22/20 21:00 12/02/20 21:18 Naproxen 500 Mg Tablet PO 500 mg BID DUNIA Administration Oxcarbazepine 300 mg 11/22/20 21:00 12/02/20 21:18 Oxcarbazepine 300 Mg Tablet PO 300 mg BID DUNIA Administration Senna/Docusate Sodium 1 tab 12/01/20 21:00 12/02/20 21:18 Sennosides/Docusate Sodium Tablet PO 1 tab BEDTIME DUNIA Administration Simethicone 80 mg 11/21/20 17:00 12/02/20 21:19 Simethicone 80 Mg Tab.Chew PO 80 mg QIDWMHS DUNIA Administration Trazodone HCl 100 mg 11/17/20 21:00 12/02/20 21:18 Trazodone Hcl 100 Mg Tablet PO 100 mg BEDTIME DUNIA Administration Allergies Allergies Allergy/AdvReac Type Severity Reaction Status Date / Time No Known Allergies Allergy Verified 11/10/20 15:51 Assessment & Plan Assessment & Plan (1) Depression: Status: Acute Code(s): F32.9 - Major depressive disorder, single episode, unspecified (2) PTSD (post-traumatic stress disorder): Status: Acute Code(s): F43.10 - Post-traumatic stress disorder, unspecified (3) Diabetes: Status: Acute Code(s): E11.9 - Type 2 diabetes mellitus without complications (4) Ear pain: Status: Acute Code(s): H92.09 - Otalgia, unspecified ear Assessment and Plan: Bennett is a 65 year old male who presents with symptoms of depression, irritability, anxiety, flashbacks, hyperarousal, lack of sleep, perseverative thoughts, and nightmares. He was brought to [facility] following a verbal altercation with his in the context of ongoing marital issues, financial stress, housing instability, and lack of psychiatric treatment. He does not speak Norwegian and has language barriers [place] He has no past psychiatric treatment, [place] with his and three daughters. He has past trauma history from living [place], [place]. He has multiple co-morbid medical issues including insulin dependent diabetes, hx of head injury, and leg pain. He is currently accepting medication management for symptoms of PTSD and insomnia. Lexapro was started at [facility] ED. Collateral information from daughter- pt very irritable, explosive at times, threatening family Plan: 1. Continue on lexapro 10 mg QD for sx of PTSD and trazodone 50 mg QHS PRN for i nsomnia. Monitor response to medications. 2. Start trileptal 300mg po BID for mood stabilization given concerns of pt's hx of irritability, explosive behaviors. 3. SW will work on housing, legal issues- aftercare planning 4. Discharge on stabilization. Patient seen. Chart reviewed. Discussed with team. Greater than 50% of the session was spent on counseling and/or coordination of care Reason for contiued inpatient stay Substantial Risk for: inability to function
[2020-12-02 08:52] LABS: Estimated Average Glucose 160 mg/dL; Hemoglobin A1c % 7.2 %
[2020-12-02 12:22] LABS: Glucose, Whole Blood 160 mg/dL (60-115)
[2020-12-02] MEDS: Insulin Lispro 100 UNIT/ML 3 ML VIAL SUBCUT ×2 (12:25→17:36)
[2020-12-02 18:00] VITALS: BP 145/74; PULSE 84; RESP 18; TEMP 36.7; O2SAT 97
[2020-12-02] MEDS: traZODone HCL 100 MG TABLET PO (21:18)
[2020-12-02] MEDS: Sennosides/Docusate Sodium TABLET 1 TAB PO (21:18)
[2020-12-02 21:37] LABS: Glucose, Whole Blood 90 mg/dL (60-115)
[2020-12-02 21:37] LABS: Glucose, Whole Blood 175 mg/dL (60-115)
[2020-12-03 06:00] VITALS: BP 137/61; PULSE 87; RESP 18; TEMP 36.6; O2SAT 97
[2020-12-03 08:44] LABS: Glucose, Whole Blood 105 mg/dL (60-115)
[2020-12-03] MEDS: NaPROXEN 500 MG TABLET PO ×2 (08:55→21:26)
[2020-12-03] MEDS: metFORMIN HCl 500 MG TABLET PO ×2 (08:58→18:09)
[2020-12-03] MEDS: OXcarbazepine 300 MG TABLET PO ×2 (08:58→21:26)
[2020-12-03] MEDS: Simethicone 80 MG TAB.CHEW PO ×3 (08:58→21:26)
[2020-12-03 08:59] VITALS: BP 137/61; PULSE 87
[2020-12-03] MEDS: Escitalopram Oxalate 10 MG TABLET PO (08:59)
[2020-12-03] MEDS: amLODIPine Besylate 2.5 MG TABLET PO (08:59)
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
[2020-12-03] MEDS: Acetaminophen 325 MG TABLET 650 MG PO ×2 (15:08→21:26)
[2020-12-03 20:30] VITALS: BP 188/88; PULSE 75; RESP 18; TEMP 37.2; O2SAT 96
[2020-12-03 20:49] LABS: Glucose, Whole Blood 143 mg/dL (60-115)
[2020-12-03] MEDS: traZODone HCL 50 MG TABLET 150 MG PO (21:25)
[2020-12-03] MEDS: Sennosides/Docusate Sodium TABLET 1 TAB PO (21:26)
[2020-12-03] MEDS: hydrOXYzine HCL 25 MG TABLET PO (21:26)
[2020-12-03 21:49] VITALS: BP 119/59; PULSE 76; RESP 18
[2020-12-04 08:15] VITALS: BP 164/72; PULSE 75; RESP 16; TEMP 37.2; O2SAT 94
[2020-12-04] MEDS: OXcarbazepine 300 MG TABLET PO ×2 (08:30→22:06)
[2020-12-04] MEDS: Simethicone 80 MG TAB.CHEW PO ×4 (08:31→22:06)
[2020-12-04] MEDS: Acetaminophen 325 MG TABLET 650 MG PO ×4 (08:31→22:05)
[2020-12-04] MEDS: Escitalopram Oxalate 10 MG TABLET PO (08:31)
[2020-12-04] MEDS: NaPROXEN 500 MG TABLET PO ×2 (08:31→22:06)
[2020-12-04] MEDS: metFORMIN HCl 500 MG TABLET PO ×2 (08:31→17:29)
[2020-12-04 08:35] VITALS: BP 164/72; PULSE 75
[2020-12-04] MEDS: amLODIPine Besylate 2.5 MG TABLET PO (08:35)
[2020-12-04 09:01] LABS: Glucose, Whole Blood 90 mg/dL (60-115)
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
[2020-12-04 12:05] LABS: Glucose, Whole Blood 144 mg/dL (60-115)
[2020-12-04] MEDS: Milk of Magnesia 30 ML ORAL.SUSP PO (14:35)
[2020-12-04 17:15] LABS: Glucose, Whole Blood 147 mg/dL (60-115)
[2020-12-04 18:00] VITALS: BP 144/65; PULSE 84; RESP 14; TEMP 36.9; O2SAT 98
[2020-12-04 21:25] VITALS: BP 121/56; PULSE 81; RESP 18; TEMP 36.8; O2SAT 96
[2020-12-04 21:42] LABS: Glucose, Whole Blood 147 mg/dL (60-115)
[2020-12-04] MEDS: traZODone HCL 50 MG TABLET 150 MG PO (22:06)
[2020-12-04] MEDS: Sennosides/Docusate Sodium TABLET 1 TAB PO (22:06)
--- NOTE | 2020-12-04 23:29 | MHC.SHP ---
Pre-Procedural Eval Section A Date of Service: 12/04/20 Section B Chief Complaint: Major Depressive Disorder Recurrent Allergies: Allergies Allergy/AdvReac Type Severity Reaction Status Date / Time No Known Allergies Allergy Verified 11/10/20 15:51 Plan I have reviewed the history and physical and performed a pertinent physical examination on my patient. No changes have occurred unless specified.
--- NOTE | 2020-12-05 00:52 | PC.NURSE ---
blisters-bilateral blisters noted outer aspect large toe.
[2020-12-05 08:50] VITALS: BP 141/66; PULSE 77; RESP 16; TEMP 36.7; O2SAT 94
[2020-12-05 09:02] LABS: Glucose, Whole Blood 81 mg/dL (60-115)
[2020-12-05] MEDS: Simethicone 80 MG TAB.CHEW PO ×4 (09:10→21:29)
[2020-12-05] MEDS: Acetaminophen 325 MG TABLET 650 MG PO ×4 (09:10→21:28)
[2020-12-05] MEDS: NaPROXEN 500 MG TABLET PO ×2 (09:10→21:28)
[2020-12-05] MEDS: Escitalopram Oxalate 10 MG TABLET PO (09:10)
[2020-12-05] MEDS: OXcarbazepine 300 MG TABLET PO ×2 (09:10→21:28)
[2020-12-05] MEDS: metFORMIN HCl 500 MG TABLET PO ×2 (09:11→17:30)
[2020-12-05 09:14] VITALS: BP 141/66; PULSE 77
[2020-12-05] MEDS: amLODIPine Besylate 2.5 MG TABLET PO (09:14)
[2020-12-05 12:41] LABS: Glucose, Whole Blood 143 mg/dL (60-115)
--- NOTE | 2020-12-05 14:16 | PC.NURSE ---
7:30am Received in am report: Blister noted on medial aspect of right great toe and appeared to have previously opened blister on inferior aspect of left great toe. At 8:30 am I assessed bilateral feet : closed blister medial aspect of right great toe, healing blister inferior aspect of left great toe, closed blister between left great toe and left second toe, open draining blister medial aspect of right small toe. Onychauxis left great toenail. There are no signs of infection. Patient reports some pain and numbness in bilateral feet. Between all toes required cleaning. Bilateral feet soaked in warm water, cleansed with soap and water, patted dry and lotion applied. 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 Patient states these are new, no blistering on feet prior to admission ( feet were assessed by this nurse on admission and no blisters noted). Pt attributes blisters to the poor diet he is receiving here and no one helps me here Patient denies having gout.
[2020-12-05 18:59] LABS: Glucose, Whole Blood 139 mg/dL (60-115)
[2020-12-05] MEDS: traZODone HCL 50 MG TABLET 150 MG PO (21:28)
[2020-12-05] MEDS: Sennosides/Docusate Sodium TABLET 1 TAB PO (21:28)
[2020-12-05 21:29] LABS: Glucose, Whole Blood 144 mg/dL (60-115)
[2020-12-05 21:32] VITALS: BP 123/64; PULSE 66; TEMP 36.8; O2SAT 98
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
[2020-12-06 08:48] VITALS: BP 141/69; PULSE 84; RESP 18; TEMP 36.8; O2SAT 96
[2020-12-06 08:49] LABS: Glucose, Whole Blood 90 mg/dL (60-115)
[2020-12-06] MEDS: NaPROXEN 500 MG TABLET PO ×2 (08:49→21:59)
[2020-12-06] MEDS: Simethicone 80 MG TAB.CHEW PO ×4 (08:49→21:56)
[2020-12-06 08:50] VITALS: BP 141/69; PULSE 84
[2020-12-06] MEDS: metFORMIN HCl 500 MG TABLET PO ×2 (08:50→17:09)
[2020-12-06] MEDS: Acetaminophen 325 MG TABLET 650 MG PO ×4 (08:50→21:59)
[2020-12-06] MEDS: OXcarbazepine 300 MG TABLET PO ×2 (08:50→21:57)
[2020-12-06] MEDS: amLODIPine Besylate 2.5 MG TABLET PO (08:50)
[2020-12-06] MEDS: Escitalopram Oxalate 10 MG TABLET PO (08:50)
--- NOTE | 2020-12-06 10:18 | PC.NURSE ---
Skin/wound assessment completed today. Patient has an open blister on left plantar great toe-Woundres' gel applied covered with gauze and roll gauze. An intact blister with some fluid inside to right lateral great toe-cover with small gauze and foam dressing. No other skin issues noted at this time.
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
--- NOTE | 2020-12-06 16:03 | MHC.CLN ---
F/U PATIENT CONTINUES WITH SOME COMPLAINTS OF DIET. RECOMMEND INCREASING KCALS FROM 1800 TO 2000 KCAL (28.6 KCAL/KG) TO PROVIDE MORE CHOICES. SKIN WITH INTACT BLISTER TO RIGHT GREAT TOE AND OPEN BLISTER TO LEFT GREAT TOE, NOT PRESSURE ULCERS. CONTINUE DIABETIC DIET WITH CHANGE TO 2000 KCAL.
[2020-12-06] MEDS: traZODone HCL 50 MG TABLET 150 MG PO (21:56)
[2020-12-06] MEDS: Sennosides/Docusate Sodium TABLET 1 TAB PO (21:57)
[2020-12-06 22:46] VITALS: BP 168/72; PULSE 76; TEMP 36.8; O2SAT 98
[2020-12-07 08:30] LABS: Glucose, Whole Blood 109 mg/dL (60-115)
[2020-12-07] MEDS: OXcarbazepine 300 MG TABLET PO ×2 (08:30→21:41)
[2020-12-07] MEDS: NaPROXEN 500 MG TABLET PO ×2 (08:30→21:41)
[2020-12-07 08:31] VITALS: BP 163/79; PULSE 78
[2020-12-07] MEDS: Simethicone 80 MG TAB.CHEW PO ×3 (08:31→21:41)
[2020-12-07] MEDS: amLODIPine Besylate 2.5 MG TABLET PO (08:31)
[2020-12-07] MEDS: Acetaminophen 325 MG TABLET 650 MG PO ×3 (08:31→21:41)
[2020-12-07] MEDS: Escitalopram Oxalate 10 MG TABLET PO (08:31)
[2020-12-07] MEDS: metFORMIN HCl 500 MG TABLET PO ×2 (08:32→17:45)
[2020-12-07 08:37] VITALS: BP 163/79; PULSE 78; RESP 16; TEMP 37; O2SAT 95
[2020-12-07 12:41] LABS: Glucose, Whole Blood 129 mg/dL (60-115)
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
[2020-12-07 21:09] LABS: Glucose, Whole Blood 179 mg/dL (60-115)
[2020-12-07] MEDS: Insulin Lispro 100 UNIT/ML 3 ML VIAL SUBCUT (21:14)
[2020-12-07] MEDS: traZODone HCL 50 MG TABLET 150 MG PO (21:41)
[2020-12-07] MEDS: Sennosides/Docusate Sodium TABLET 1 TAB PO (21:41)
[2020-12-07 21:52] VITALS: BP 136/67; PULSE 97; TEMP 37.1; O2SAT 96
[2020-12-08 08:00] VITALS: BP 100/56; PULSE 85
[2020-12-08 08:35] VITALS: BP 100/56; PULSE 85; RESP 16; TEMP 36.9; O2SAT 97
[2020-12-08] MEDS: Acetaminophen 325 MG TABLET 650 MG PO ×4 (08:54→21:06)
[2020-12-08] MEDS: NaPROXEN 500 MG TABLET PO ×2 (08:54→21:06)
[2020-12-08] MEDS: metFORMIN HCl 500 MG TABLET PO ×2 (08:55→17:29)
[2020-12-08] MEDS: Escitalopram Oxalate 10 MG TABLET PO (08:55)
[2020-12-08] MEDS: Simethicone 80 MG TAB.CHEW PO ×4 (08:55→21:07)
[2020-12-08] MEDS: OXcarbazepine 300 MG TABLET PO ×2 (08:55→21:07)
[2020-12-08 09:58] LABS: Glucose, Whole Blood 131 mg/dL (60-115)
[2020-12-08 10:01] LABS: Creatinine Clr Calc Pharmacy 53.5; Estimated Glomerular Filt Rate > 60
[2020-12-08 12:10] LABS: Glucose, Whole Blood 125 mg/dL (60-115)
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
[2020-12-08 17:28] LABS: Glucose, Whole Blood 171 mg/dL (60-115)
[2020-12-08 19:56] VITALS: BP 164/77; PULSE 66; RESP 16; TEMP 37.1; O2SAT 98
[2020-12-08] MEDS: Sennosides/Docusate Sodium TABLET 1 TAB PO (21:06)
[2020-12-08] MEDS: traZODone HCL 50 MG TABLET 150 MG PO (21:07)
[2020-12-09 07:56] LABS: Glucose, Whole Blood 106 mg/dL (60-115)
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
[2020-12-09 08:15] VITALS: BP 161/70; PULSE 72; RESP 14; TEMP 37.1; O2SAT 94
[2020-12-09] MEDS: Acetaminophen 325 MG TABLET 650 MG PO ×4 (08:39→22:12)
[2020-12-09] MEDS: NaPROXEN 500 MG TABLET PO ×2 (08:40→22:12)
[2020-12-09 08:41] VITALS: BP 161/70; PULSE 72
[2020-12-09] MEDS: OXcarbazepine 300 MG TABLET PO ×2 (08:41→22:11)
[2020-12-09] MEDS: metFORMIN HCl 500 MG TABLET PO ×2 (08:41→17:56)
[2020-12-09] MEDS: Simethicone 80 MG TAB.CHEW PO ×4 (08:41→22:11)
[2020-12-09] MEDS: amLODIPine Besylate 2.5 MG TABLET PO (08:41)
[2020-12-09] MEDS: Escitalopram Oxalate 10 MG TABLET PO (08:42)
[2020-12-09] MEDS: Milk of Magnesia 30 ML ORAL.SUSP PO (15:59)
[2020-12-09 17:35] LABS: Glucose, Whole Blood 148 mg/dL (60-115)
[2020-12-09 18:00] VITALS: BP 155/73; PULSE 74; RESP 18; TEMP 36.8; O2SAT 98
[2020-12-09] MEDS: Sennosides/Docusate Sodium TABLET 1 TAB PO (22:11)
[2020-12-09] MEDS: traZODone HCL 50 MG TABLET 150 MG PO (22:12)
[2020-12-09 23:56] VITALS: BP 155/73; PULSE 74; RESP 18; TEMP 36.8
[2020-12-10 06:00] VITALS: BP 116/57; PULSE 92; RESP 20; TEMP 36.3; O2SAT 94
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
[2020-12-10 08:43] LABS: Glucose, Whole Blood 106 mg/dL (60-115)
[2020-12-10] MEDS: Simethicone 80 MG TAB.CHEW PO ×4 (08:51→20:53)
[2020-12-10] MEDS: amLODIPine Besylate 2.5 MG TABLET PO (08:51)
[2020-12-10] MEDS: metFORMIN HCl 500 MG TABLET PO ×2 (08:51→17:15)
[2020-12-10] MEDS: Escitalopram Oxalate 10 MG TABLET PO (08:51)
[2020-12-10] MEDS: NaPROXEN 500 MG TABLET PO ×2 (08:51→20:53)
[2020-12-10] MEDS: Acetaminophen 325 MG TABLET 650 MG PO ×4 (08:51→20:58)
[2020-12-10] MEDS: OXcarbazepine 300 MG TABLET PO ×2 (08:51→20:53)
[2020-12-10 17:42] LABS: Glucose, Whole Blood 174 mg/dL (60-115)
[2020-12-10 20:50] VITALS: BP 164/78; PULSE 77; TEMP 36.8; O2SAT 97
[2020-12-10] MEDS: Sennosides/Docusate Sodium TABLET 1 TAB PO (20:53)
[2020-12-10] MEDS: traZODone HCL 50 MG TABLET 150 MG PO (20:53)
[2020-12-11 06:00] VITALS: BP 118/73; PULSE 84; RESP 16; TEMP 36.8; O2SAT 95
[2020-12-11 08:43] LABS: Glucose, Whole Blood 76 mg/dL (60-115)
[2020-12-11] MEDS: metFORMIN HCl 500 MG TABLET PO ×2 (09:59→17:09)
[2020-12-11] MEDS: Acetaminophen 325 MG TABLET 650 MG PO ×4 (09:59→21:09)
[2020-12-11] MEDS: NaPROXEN 500 MG TABLET PO ×2 (09:59→21:08)
[2020-12-11] MEDS: Simethicone 80 MG TAB.CHEW PO ×4 (10:00→21:08)
[2020-12-11] MEDS: amLODIPine Besylate 2.5 MG TABLET PO (10:00)
[2020-12-11] MEDS: Escitalopram Oxalate 10 MG TABLET PO (10:00)
[2020-12-11] MEDS: OXcarbazepine 300 MG TABLET PO ×2 (10:00→21:08)
[2020-12-11 12:20] LABS: Glucose, Whole Blood 186 mg/dL (60-115)
[2020-12-11 20:12] VITALS: BP 132/63; PULSE 72; TEMP 36.7; O2SAT 95
[2020-12-11] MEDS: Sennosides/Docusate Sodium TABLET 1 TAB PO (21:08)
[2020-12-11] MEDS: traZODone HCL 50 MG TABLET 150 MG PO (21:08)
[2020-12-12 06:00] VITALS: BP 121/70; PULSE 69; RESP 20; TEMP 36.6; O2SAT 96
--- NOTE | 2020-12-12 08:09 | HO.PSYCHPN ---
Subjective Subjective Date of Service: 12/14/20 Reason For Visit: Major Depressive Disorder Recurrent Interim History: Pt interview with territory development manager through [employer]. Per nursing, increasingly more visible in the unit. Pt expresses frustration about being in hospital not being able to communicate with others. He denies SI/HI. He reports toe pain, back pain, tooth pain has decreased but report tinnitus on left ear. He has been taking medications as prescribed. Accusing daughter of communicating with Briana. Review of Systems Review of Systems Yes all other systems are reviewed and are negative Mental Status Exam Mental Status Exam Narrative: Narrative:?Appearance: casually groomed, fair hygiene in NAD Behavior:cooperative psychomotor:no agitation or retardation Speech:(assessed with territory development manager), rambling at times, hyperverbal, pressured, spontaneous Thought process: goal oriented in that he wants to return home Thought content:no signs of psychosis, worried about not having housing. Mood: upset Affect: congruent SI:denies HI:denies VH/AH:none Delusions:none Memory/cog: alert, oriented x 3. not formally tested. Patient Appearance: Fatigued and Appropriate Patient Orientation: Person, Place and Time Level of Consciousness: Awake Patient Behavior: Appropriate Mood Description: Calm, Withdrawn and Apprehensive Affect Description: Anxious and Blunted Patient Cognition Impaired: No Ability to Follow Directions: Good Speech Pattern: Clear (in Terese) Memory Description: Intact Diagnostics Vital Signs (24Hr): Vital Signs - 24 hr 12/13/20 10:05 12/13/20 18:00 Temperature 97.9 F Pulse Rate 70 Respiratory Rate 18 Blood Pressure 136/60 118/78 Pulse Oximetry 97 Body Mass Index 25.7 Labs Results: 12/08/20 09:15 Labs: Laboratory Results - last 48 hr 12/12/20 12/12/20 12/13/20 09:12 17:44 08:30 POC Glucose 94 92 84 12/13/20 12/14/20 16:53 07:53 POC Glucose 110 102 Medications Medications Current Medications Generic Name Dose Route Start Last Admin Trade Name Freq PRN Reason Stop Dose Admin Acetaminophen 650 mg 12/03/20 14:00 12/13/20 21:27 Acetaminophen 325 Mg Tablet PO 650 mg QID DUNIA Administration Al Hydroxide/Mg Hydroxide 30 ml 11/10/20 15:55 11/18/20 17:20 Magnesium Hydrox/Alum Hydrox 30 Ml Oral.Susp PO 30 ml Q6H PRN Administration Heartburn/Nausea Amlodipine Besylate 2.5 mg 11/24/20 09:00 12/13/20 10:05 Amlodipine Besylate 2.5 Mg Tablet PO 2.5 mg DAILY DUNIA Administration Protocol Escitalopram Oxalate 10 mg 11/11/20 09:00 12/13/20 09:56 Escitalopram Oxalate 10 Mg Tablet PO 10 mg DAILY DUNIA Administration Hydroxyzine HCl 25 mg 11/10/20 15:55 12/13/20 21:27 Hydroxyzine Hcl 25 Mg Tablet PO 25 mg Q6H PRN Administration Anxiety Magnesium Hydroxide 30 ml 11/10/20 15:55 12/13/20 18:26 Milk Of Magnesia 30 Ml Oral.Susp PO 30 ml DAILY PRN Administration Constipation Metformin HCl 500 mg 12/01/20 17:00 12/13/20 16:58 Metformin Hcl 500 Mg Tablet PO 500 mg BIDWM DUNIA Administration Naproxen 500 mg 11/22/20 21:00 12/13/20 21:27 Naproxen 500 Mg Tablet PO 500 mg BID DUNIA Administration Oxcarbazepine 300 mg 11/22/20 21:00 12/13/20 21:27 Oxcarbazepine 300 Mg Tablet PO 300 mg BID DUNIA Administration Senna/Docusate Sodium 1 tab 12/01/20 21:00 12/13/20 21:26 Sennosides/Docusate Sodium Tablet PO 1 tab BEDTIME DUNIA Administration Simethicone 80 mg 11/21/20 17:00 12/13/20 21:26 Simethicone 80 Mg Tab.Chew PO 80 mg QIDWMHS DUNIA Administration Trazodone HCl 150 mg 12/03/20 21:00 12/13/20 21:26 Trazodone Hcl 50 Mg Tablet PO 150 mg BEDTIME DUNIA Administration Trolamine Salicylate/Aloe Vera 1 appl 12/08/20 21:10 12/13/20 22:43 Trolamine Salicylate 10%/Aloe Cream 35.4 Gm TOPICAL 1 appl BID DUNIA Administration Allergies Allergies Allergy/AdvReac Type Severity Reaction Status Date / Time No Known Allergies Allergy Verified 11/10/20 15:51 Assessment & Plan Assessment & Plan (1) Depression: Status: Acute Code(s): F32.9 - Major depressive disorder, single episode, unspecified (2) PTSD (post-traumatic stress disorder): Status: Acute Code(s): F43.10 - Post-traumatic stress disorder, unspecified (3) Diabetes: Status: Acute Code(s): E11.9 - Type 2 diabetes mellitus without complications (4) Ear pain: Status: Acute Code(s): H92.09 - Otalgia, unspecified ear Assessment and Plan: Bennett is a 65 year old male who presents with symptoms of depression, irritability, anxiety, flashbacks, hyperarousal, lack of sleep, perseverative thoughts, and nightmares. He was brought to [facility] following a verbal altercation with his in the context of ongoing marital issues, financial stress, housing instability, and lack of psychiatric treatment. He does not speak Green[place]ic and has language barriers [place] in [place] He has no past psychiatric treatment, [place] [facility] [place] with his and three daughters. He has past trauma history from [place], [place]. He has multiple co-morbid medical issues including insulin dependent diabetes, hx of head injury, and leg pain. He is currently accepting medication management for symptoms of PTSD and insomnia. Lexapro was started at [facility] ED. Collateral information from daughter- pt very irritable, explosive at times, threatening family Plan: 1. Continue on lexapro 10 mg QD for sx of PTSD and trazodone 50 mg QHS PRN for insomnia. Monitor response to medications. 2. Start trileptal 300mg po BID for mood stabilization given concerns of pt's hx of irritability, explosive behaviors. 3. SW will work on housing, legal issues- aftercare planning 4. Discharge on stabilization. Patient seen. Chart reviewed. Discussed with team. Continue discharge planning case reviewed with hospitalist service suggested foam dressings and wound consult Greater than 50% of the session was spent on counseling and/or coordination of care Reason for contiued inpatient stay Substantial Risk for: stable for discharge
[2020-12-12 09:17] LABS: Glucose, Whole Blood 94 mg/dL (60-115)
[2020-12-12] MEDS: Escitalopram Oxalate 10 MG TABLET PO (09:40)
[2020-12-12] MEDS: metFORMIN HCl 500 MG TABLET PO ×2 (09:40→17:38)
[2020-12-12] MEDS: OXcarbazepine 300 MG TABLET PO ×2 (09:41→21:04)
[2020-12-12] MEDS: amLODIPine Besylate 2.5 MG TABLET PO (09:41)
[2020-12-12] MEDS: Simethicone 80 MG TAB.CHEW PO ×4 (09:41→21:06)
[2020-12-12] MEDS: NaPROXEN 500 MG TABLET PO ×2 (09:41→21:05)
[2020-12-12] MEDS: Acetaminophen 325 MG TABLET 650 MG PO ×4 (09:41→21:05)
[2020-12-12 17:48] LABS: Glucose, Whole Blood 92 mg/dL (60-115)
[2020-12-12 20:29] VITALS: PULSE 75; RESP 18; TEMP 36.7; O2SAT 94
[2020-12-12] MEDS: traZODone HCL 50 MG TABLET 150 MG PO (21:06)
[2020-12-12] MEDS: Sennosides/Docusate Sodium TABLET 1 TAB PO (21:06)
[2020-12-13 06:00] VITALS: BP 136/60; PULSE 78; RESP 16; TEMP 36.8; O2SAT 94
--- NOTE | 2020-12-13 08:09 | P.PNPSI_ITS ---
Subjective Subjective Date of Service: 12/14/20 Reason For Visit: Major Depressive Disorder Recurrent Interim History: Pt interview with black ash burner operator through [employer]. Per nursing, increasingly more visible in the unit. Pt expresses frustration about being in hospital not being able to communicate with others. He denies SI/HI. He reports toe pain, back pain, tooth pain has decreased but report tinnitus on left ear. He has been taking medications as prescribed. Accusing daughter of communicating with Briana. Review of Systems Review of Systems Yes all other systems are reviewed and are negative Mental Status Exam Mental Status Exam Narrative: Narrative:?Appearance: casually groomed, fair hygiene in NAD Behavior:cooperative psychomotor:no agitation or retardation Speech:(assessed with black ash burner operator), rambling at times, hyperverbal, pressured, spontaneous Thought process: goal oriented in that he wants to return home Thought content:no signs of psychosis, worried about not having housing. Mood: upset Affect: congruent SI:denies HI:denies VH/AH:none Delusions:none Memory/cog: alert, oriented x 3. not formally tested. Patient Appearance: Fatigued and Appropriate Patient Orientation: Person, Place and Time Level of Consciousness: Awake Patient Behavior: Appropriate Mood Description: Calm, Withdrawn and Apprehensive Affect Description: Anxious and Blunted Patient Cognition Impaired: No Ability to Follow Directions: Good Speech Pattern: Clear (in Terese) Memory Description: Intact Diagnostics Vital Signs (24Hr): Vital Signs - 24 hr 12/13/20 10:05 12/13/20 18:00 Temperature 97.9 F Pulse Rate 70 Respiratory Rate 18 Blood Pressure 136/60 118/78 Pulse Oximetry 97 Body Mass Index 25.7 Labs Results: 12/08/20 09:15 Labs: Laboratory Results - last 48 hr 12/12/20 12/12/20 12/13/20 09:12 17:44 08:30 POC Glucose 94 92 84 12/13/20 12/14/20 16:53 07:53 POC Glucose 110 102 Medications Medications Current Medications Generic Name Dose Route Start Last Admin Trade Name Freq PRN Reason Stop Dose Admin Acetaminophen 650 mg 12/03/20 14:00 12/13/20 21:27 Acetaminophen 325 Mg Tablet PO 650 mg QID DUNIA Administration Al Hydroxide/Mg Hydroxide 30 ml 11/10/20 15:55 11/18/20 17:20 Magnesium Hydrox/Alum Hydrox 30 Ml Oral.Susp PO 30 ml Q6H PRN Administration Heartburn/Nausea Amlodipine Besylate 2.5 mg 11/24/20 09:00 12/13/20 10:05 Amlodipine Besylate 2.5 Mg Tablet PO 2.5 mg DAILY DUNIA Administration Protocol Escitalopram Oxalate 10 mg 11/11/20 09:00 12/13/20 09:56 Escitalopram Oxalate 10 Mg Tablet PO 10 mg DAILY DUNIA Administration Hydroxyzine HCl 25 mg 11/10/20 15:55 12/13/20 21:27 Hydroxyzine Hcl 25 Mg Tablet PO 25 mg Q6H PRN Administration Anxiety Magnesium Hydroxide 30 ml 11/10/20 15:55 12/13/20 18:26 Milk Of Magnesia 30 Ml Oral.Susp PO 30 ml DAILY PRN Administration Constipation Metformin HCl 500 mg 12/01/20 17:00 12/13/20 16:58 Metformin Hcl 500 Mg Tablet PO 500 mg BIDWM DUNIA Administration Naproxen 500 mg 11/22/20 21:00 12/13/20 21:27 Naproxen 500 Mg Tablet PO 500 mg BID DUNIA Administration Oxcarbazepine 300 mg 11/22/20 21:00 12/13/20 21:27 Oxcarbazepine 300 Mg Tablet PO 300 mg BID DUNIA Administration Senna/Docusate Sodium 1 tab 12/01/20 21:00 12/13/20 21:26 Sennosides/Docusate Sodium Tablet PO 1 tab BEDTIME DUNIA Administration Simethicone 80 mg 11/21/20 17:00 12/13/20 21:26 Simethicone 80 Mg Tab.Chew PO 80 mg QIDWMHS DUNIA Administration Trazodone HCl 150 mg 12/03/20 21:00 12/13/20 21:26 Trazodone Hcl 50 Mg Tablet PO 150 mg BEDTIME DUNIA Administration Trolamine Salicylate/Aloe Vera 1 appl 12/08/20 21:10 12/13/20 22:43 Trolamine Salicylate 10%/Aloe Cream 35.4 Gm TOPICAL 1 appl BID DUNIA Administration Allergies Allergies Allergy/AdvReac Type Severity Reaction Status Date / Time No Known Allergies Allergy Verified 11/10/20 15:51 Assessment & Plan Assessment & Plan (1) Depression: Status: Acute Code(s): F32.9 - Major depressive disorder, single episode, unspecified (2) PTSD (post-traumatic stress disorder): Status: Acute Code(s): F43.10 - Post-traumatic stress disorder, unspecified (3) Diabetes: Status: Acute Code(s): E11.9 - Type 2 diabetes mellitus without complications (4) Ear pain: Status: Acute Code(s): H92.09 - Otalgia, unspecified ear Assessment and Plan: Bennett is a 65 year old male who presents with symptoms of depression, irritability, anxiety, flashbacks, hyperarousal, lack of sleep, perseverative thoughts, and nightmares. He was brought to [facility] following a verbal altercation with his in the context of ongoing marital issues, financial stress, housing instability, and lack of psychiatric treatment. He does not speak Malay and has language barriers [place] He has no past psychiatric treatment, [place] [facility] [place] and three daughters. He has past trauma history from [place], [place]. He has multiple co-morbid medical issues including insulin dependent diabetes, hx of head injury, and leg pain. He is currently accepting medication management for symptoms of PTSD and insomnia. Lexapro was started at [facility] ED. Collateral information from daughter- pt very irritable, explosive at times, threatening family Plan: 1. Continue on lexapro 10 mg QD for sx of PTSD and trazodone 50 mg QHS PRN for insomnia. Monitor response to medications. 2. Start trileptal 300mg po BID for mood stabilization given concerns of pt's hx of irritability, explosive behaviors. 3. SW will work on housing, legal issues- aftercare planning 4. Discharge on stabilization. Patient seen. Chart reviewed. Discussed with team. Continue discharge planning case reviewed with hospitalist service suggested foam dressings and wound consult Greater than 50% of the session was spent on counseling and/or coordination of care Reason for contiued inpatient stay Substantial Risk for: stable for discharge
[2020-12-13] MEDS: metFORMIN HCl 500 MG TABLET PO ×2 (08:19→16:58)
[2020-12-13] MEDS: Simethicone 80 MG TAB.CHEW PO ×4 (08:19→21:26)
[2020-12-13 08:37] LABS: Glucose, Whole Blood 84 mg/dL (60-115)
[2020-12-13] MEDS: NaPROXEN 500 MG TABLET PO ×2 (09:53→21:27)
[2020-12-13] MEDS: Acetaminophen 325 MG TABLET 650 MG PO ×4 (09:54→21:27)
[2020-12-13] MEDS: OXcarbazepine 300 MG TABLET PO ×2 (09:56→21:27)
[2020-12-13] MEDS: Escitalopram Oxalate 10 MG TABLET PO (09:56)
[2020-12-13 10:05] VITALS: BP 136/60
[2020-12-13] MEDS: amLODIPine Besylate 2.5 MG TABLET PO (10:05)
[2020-12-13 17:06] LABS: Glucose, Whole Blood 110 mg/dL (60-115)
[2020-12-13 18:00] VITALS: BP 118/78; PULSE 70; RESP 18; TEMP 36.6; O2SAT 97
[2020-12-13] MEDS: Milk of Magnesia 30 ML ORAL.SUSP PO (18:26)
--- NOTE | 2020-12-13 19:14 | PC.NURSE ---
Observed pt with ligature tied around lower torso. Through duplex trimmer pt reports this is for pain in lower back and abdomen. Reports back pain as 8/10, refuses PRN stating that he has been taking the medicine for so long and it doesn't work. Indicates abdominal pain just above umbilicus. Assessed as firm and mildly distended. Reports this is due to gas. When asked, pt reports last bowel movement as seven days ago. Agrees to PRN milk of magnesia 30ml at 6:15. After much discussion through duplex trimmer, pt surrenders ligature.
[2020-12-13] MEDS: Sennosides/Docusate Sodium TABLET 1 TAB PO (21:26)
[2020-12-13] MEDS: traZODone HCL 50 MG TABLET 150 MG PO (21:26)
[2020-12-13] MEDS: hydrOXYzine HCL 25 MG TABLET PO (21:27)
[2020-12-14 06:00] VITALS: BP 137/80; PULSE 92; RESP 18; TEMP 36.9; O2SAT 97
[2020-12-14 07:58] LABS: Glucose, Whole Blood 102 mg/dL (60-115)
[2020-12-14] MEDS: Escitalopram Oxalate 10 MG TABLET PO (08:34)
[2020-12-14] MEDS: Simethicone 80 MG TAB.CHEW PO ×4 (08:34→22:43)
[2020-12-14] MEDS: amLODIPine Besylate 2.5 MG TABLET PO (08:35)
[2020-12-14] MEDS: OXcarbazepine 300 MG TABLET PO ×2 (08:35→22:42)
[2020-12-14] MEDS: metFORMIN HCl 500 MG TABLET PO ×2 (08:35→19:06)
[2020-12-14] MEDS: NaPROXEN 500 MG TABLET PO ×2 (08:35→22:41)
--- NOTE | 2020-12-14 08:59 | P.PNPSI_ITS ---
Subjective Subjective Date of Service: 12/17/20 Reason For Visit: Major Depressive Disorder Recurrent Subjective Notes: Conditional Voluntary Interim History: Pt interview with bilingual interpreter through [employer]. Pt expresses his frustration about being in the hospital, thinks and daughter are making false accusations and that he should be able to return to the home. He denies SI/HI. He reported frustration about being in the unit for so long as he can't communicate freely and is frustrating to have to wait for bilingual interpreter through phone. He initially asking to be discharged but later worried that he does not have a place to go to. He asked several times if he could go to his home, educated about restraining order- which is confusing for pt as he thinks is a trial. Review of Systems Review of Systems Yes all other systems are reviewed and are negative Mental Status Exam Mental Status Exam Narrative: Narrative:?Appearance: casually groomed, fair hygiene in NAD Behavior:cooperative psychomotor:no agitation or retardation Speech:(assessed with bilingual interpreter), rambling at times, hyperverbal, pressured, spontaneous Thought process: goal oriented in that he wants to return home Thought content:no signs of psychosis, worried about not having housing. Mood: upset Affect: congruent SI:denies HI:denies VH/AH:none Delusions:none Memory/cog: alert, oriented x 3. not formally tested. Diagnostics Vital Signs (24Hr): Vital Signs - 24 hr 12/16/20 18:00 12/17/20 06:00 12/17/20 08:27 Temperature 97.8 F 98.1 F Pulse Rate 103 H 74 74 Respiratory Rate 18 16 Blood Pressure 141/73 H 134/76 134/76 Pulse Oximetry 96 98 Body Mass Index 25.7 Labs Results: 12/16/20 07:30 Labs: Laboratory Results - last 48 hr 12/15/20 12/15/20 12/16/20 08:30 17:39 07:30 Creatinine 1.02 Estim Creat Clear Calc 61.9 Estimated GFR > 60 POC Glucose 102 109 12/16/20 12/16/20 12/17/20 08:25 17:33 08:13 Creatinine Estim Creat Clear Calc Estimated GFR POC Glucose 96 176 H 128 H Medications Medications Current Medications Generic Name Dose Route Start Last Admin Trade Name Freq PRN Reason Stop Dose Admin Acetaminophen 650 mg 12/03/20 14:00 12/17/20 08:26 Acetaminophen 325 Mg Tablet PO 650 mg QID DUNIA Administration Al Hydroxide/Mg Hydroxide 30 ml 11/10/20 15:55 11/18/20 17:20 Magnesium Hydrox/Alum Hydrox 30 Ml Oral.Susp PO 30 ml Q6H PRN Administration Heartburn/Nausea Amlodipine Besylate 2.5 mg 11/24/20 09:00 12/17/20 08:27 Amlodipine Besylate 2.5 Mg Tablet PO 2.5 mg DAILY DUNIA Administration Protocol Escitalopram Oxalate 10 mg 11/11/20 09:00 12/17/20 08:27 Escitalopram Oxalate 10 Mg Tablet PO 10 mg DAILY DUNIA Administration Hydroxyzine HCl 25 mg 11/10/20 15:55 12/13/20 21:27 Hydroxyzine Hcl 25 Mg Tablet PO 25 mg Q6H PRN Administration Anxiety Magnesium Hydroxide 30 ml 11/10/20 15:55 12/16/20 12:31 Milk Of Magnesia 30 Ml Oral.Susp PO 30 ml DAILY PRN Administration Constipation Metformin HCl 500 mg 12/01/20 17:00 12/17/20 08:27 Metformin Hcl 500 Mg Tablet PO 500 mg BIDWM DUNIA Administration Naproxen 500 mg 11/22/20 21:00 12/17/20 08:27 Naproxen 500 Mg Tablet PO 500 mg BID DUNIA Administration Oxcarbazepine 300 mg 11/22/20 21:00 12/17/20 08:27 Oxcarbazepine 300 Mg Tablet PO 300 mg BID DUNIA Administration Senna/Docusate Sodium 1 tab 12/01/20 21:00 12/16/20 20:42 Sennosides/Docusate Sodium Tablet PO 1 tab BEDTIME DUNIA Administration Simethicone 80 mg 11/21/20 17:00 12/17/20 08:27 Simethicone 80 Mg Tab.Chew PO 80 mg QIDWMHS DUNIA Administration Trazodone HCl 150 mg 12/03/20 21:00 12/16/20 20:42 Trazodone Hcl 50 Mg Tablet PO 150 mg BEDTIME DUNIA Administration Trolamine Salicylate/Aloe Vera 1 appl 12/08/20 21:10 12/17/20 08:28 Trolamine Salicylate 10%/Aloe Cream 35.4 Gm TOPICAL 1 appl BID DUNIA Administration Allergies Allergies Allergy/AdvReac Type Severity Reaction Status Date / Time No Known Allergies Allergy Verified 11/10/20 15:51 Assessment & Plan Assessment & Plan (1) Depression: Status: Acute Code(s): F32.9 - Major depressive disorder, single episode, unspecified (2) PTSD (post-traumatic stress disorder): Status: Acute Code(s): F43.10 - Post-traumatic stress disorder, unspecified (3) Diabetes: Status: Acute Code(s): E11.9 - Type 2 diabetes mellitus without complications (4) Ear pain: Status: Acute Code(s): H92.09 - Otalgia, unspecified ear Assessment and Plan: Bennett is a 65 year old male who presents with symptoms of depression, irritability, anxiety, flashbacks, hyperarousal, lack of sleep, perseverative thoughts, and nightmares. [place] [facility] [place] altercation with his in the context of ongoing marital issues, financial stress, housing instability, and lack of psychiatric treatment. He does not speak [place]ese and has language barriers [place] He has no past psychiatric treatment, [place] [facility] [place] his and three daughters. He has past trauma history from living [place], [place] by [place]. He has multiple co-morbid medical issues including insulin dependent diabetes, hx of head injury, and leg pain. He is currently accepting medication management for symptoms of PTSD and insomnia. Lexapro was started at [facility] ED. Collateral information from daughter- pt very irritable, explosive at times, threatening family Plan: 1. Continue on lexapro 10 mg QD for sx of PTSD and trazodone 50 mg QHS PRN for insomnia. Monitor response to medications. 2. Start trileptal 300mg po BID for mood stabilization given concerns of pt's hx of irritability, explosive behaviors. 3. SW will work on housing, legal issues- aftercare planning 4. Discharge on stabilization. Patient seen. Chart reviewed. Discussed with team. Continue discharge planning case reviewed with hospitalist service suggested foam dressings and wound consult Greater than 50% of the session was spent on counseling and/or coordination of care Reason for contiued inpatient stay Substantial Risk for: stable for discharge
[2020-12-14] MEDS: Acetaminophen 325 MG TABLET 650 MG PO ×3 (10:13→19:05)
--- NOTE | 2020-12-14 10:46 | PC.NURSE ---
Skin/wound assessment completed today. The blister on patients left great toe has opened and skin has peeled off. Bed is granulating and pink, edges attached. Continued with Woundres' gel, gauze and roll gauze. The blister on the right great toe has healed. No other skin issues noted at this time.
[2020-12-14 17:17] LABS: Glucose, Whole Blood 138 mg/dL (60-115)
[2020-12-14 18:00] VITALS: BP 180/84; PULSE 85; TEMP 37; O2SAT 98
[2020-12-14] MEDS: Sennosides/Docusate Sodium TABLET 1 TAB PO (22:42)
[2020-12-14] MEDS: traZODone HCL 50 MG TABLET 150 MG PO (22:42)
[2020-12-15] MEDS: Acetaminophen 325 MG TABLET 650 MG PO ×4 (08:32→21:57)
[2020-12-15] MEDS: OXcarbazepine 300 MG TABLET PO ×2 (08:34→21:58)
[2020-12-15] MEDS: metFORMIN HCl 500 MG TABLET PO ×2 (08:34→16:47)
[2020-12-15] MEDS: Escitalopram Oxalate 10 MG TABLET PO (08:34)
[2020-12-15 08:35] VITALS: BP 155/71; PULSE 79; RESP 16; TEMP 36.7; O2SAT 96
[2020-12-15] MEDS: Simethicone 80 MG TAB.CHEW PO ×4 (08:35→21:57)
[2020-12-15] MEDS: NaPROXEN 500 MG TABLET PO ×2 (08:35→21:57)
[2020-12-15 08:36] VITALS: BP 155/71; PULSE 79
[2020-12-15] MEDS: amLODIPine Besylate 2.5 MG TABLET PO (08:36)
[2020-12-15 08:59] LABS: Glucose, Whole Blood 102 mg/dL (60-115)
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
[2020-12-15 17:44] LABS: Glucose, Whole Blood 109 mg/dL (60-115)
[2020-12-15 18:00] VITALS: BP 176/78; PULSE 73; TEMP 36.8; O2SAT 97
[2020-12-15] MEDS: Sennosides/Docusate Sodium TABLET 1 TAB PO (21:57)
[2020-12-15] MEDS: traZODone HCL 50 MG TABLET 150 MG PO (21:57)
[2020-12-16 08:04] LABS: Creatinine Clr Calc Pharmacy 61.9; Estimated Glomerular Filt Rate > 60
[2020-12-16 08:31] LABS: Glucose, Whole Blood 96 mg/dL (60-115)
[2020-12-16 08:34] VITALS: BP 129/59; PULSE 70; RESP 14; TEMP 36.8; O2SAT 98
[2020-12-16] MEDS: Simethicone 80 MG TAB.CHEW PO ×4 (08:39→20:42)
[2020-12-16] MEDS: NaPROXEN 500 MG TABLET PO ×2 (08:39→20:40)
[2020-12-16] MEDS: metFORMIN HCl 500 MG TABLET PO ×2 (08:40→17:54)
[2020-12-16] MEDS: OXcarbazepine 300 MG TABLET PO ×2 (08:40→20:40)
[2020-12-16] MEDS: Escitalopram Oxalate 10 MG TABLET PO (08:40)
[2020-12-16] MEDS: Acetaminophen 325 MG TABLET 650 MG PO ×4 (08:41→21:50)
[2020-12-16 08:48] VITALS: BP 129/59; PULSE 70
--- NOTE | 2020-12-16 09:06 | HO.PSYCHPN ---
Subjective Subjective Date of Service: 12/17/20 Reason For Visit: Major Depressive Disorder Recurrent Interim History: Pt interview with interpreter and translator through [employer]. Pt continues to report frustration as to why he is in hospital and can't return to his home. He denies accusations made by stating all I was asking was for tea! He reports hospital is like a nursing home and he does not want to be here. He also expresses frustration about not speaking Kosovan and not being able to communicate. He denies SI/HI. No jail beds available. Explained to pt that placement is only reason why he stills in hospital. Review of Systems Review of Systems Yes all other systems are reviewed and are negative Mental Status Exam Mental Status Exam Narrative: Narrative:?Appearance: casually groomed, fair hygiene in NAD Behavior:cooperative psychomotor:no agitation or retardation Speech:(assessed with interpreter and translator), rambling at times, hyperverbal, pressured, spontaneous Thought process: goal oriented in that he wants to return home Thought content:no signs of psychosis, worried about not having housing. Mood: upset Affect: congruent SI:denies HI:denies VH/AH:none Delusions:none Memory/cog: alert, oriented x 3. not formally tested. Patient Appearance: Fatigued and Appropriate Patient Orientation: Person, Place and Time Level of Consciousness: Awake Patient Behavior: Appropriate Mood Description: Calm, Withdrawn and Apprehensive Affect Description: Anxious and Blunted Patient Cognition Impaired: No Ability to Follow Directions: Good Speech Pattern: Clear (in Terese) Memory Description: Intact Diagnostics Vital Signs (24Hr): Vital Signs - 24 hr 12/16/20 18:00 12/17/20 06:00 12/17/20 08:27 Temperature 97.8 F 98.1 F Pulse Rate 103 H 74 74 Respiratory Rate 18 16 Blood Pressure 141/73 H 134/76 134/76 Pulse Oximetry 96 98 Body Mass Index 25.7 Labs Results: 12/16/20 07:30 Labs: Laboratory Results - last 48 hr 12/15/20 12/16/20 12/16/20 17:39 07:30 08:25 Creatinine 1.02 Estim Creat Clear Calc 61.9 Estimated GFR > 60 POC Glucose 109 96 12/16/20 12/17/20 17:33 08:13 Creatinine Estim Creat Clear Calc Estimated GFR POC Glucose 176 H 128 H Medications Medications Current Medications Generic Name Dose Route Start Last Admin Trade Name Freq PRN Reason Stop Dose Admin Acetaminophen 650 mg 12/03/20 14:00 12/17/20 08:26 Acetaminophen 325 Mg Tablet PO 650 mg QID DUNIA Administration Al Hydroxide/Mg Hydroxide 30 ml 11/10/20 15:55 11/18/20 17:20 Magnesium Hydrox/Alum Hydrox 30 Ml Oral.Susp PO 30 ml Q6H PRN Administration Heartburn/Nausea Amlodipine Besylate 2.5 mg 11/24/20 09:00 12/17/20 08:27 Amlodipine Besylate 2.5 Mg Tablet PO 2.5 mg DAILY DUNIA Administration Protocol Escitalopram Oxalate 10 mg 11/11/20 09:00 12/17/20 08:27 Escitalopram Oxalate 10 Mg Tablet PO 10 mg DAILY DUNIA Administration Hydroxyzine HCl 25 mg 11/10/20 15:55 12/13/20 21:27 Hydroxyzine Hcl 25 Mg Tablet PO 25 mg Q6H PRN Administration Anxiety Magnesium Hydroxide 30 ml 11/10/20 15:55 12/16/20 12:31 Milk Of Magnesia 30 Ml Oral.Susp PO 30 ml DAILY PRN Administration Constipation Metformin HCl 500 mg 12/01/20 17:00 12/17/20 08:27 Metformin Hcl 500 Mg Tablet PO 500 mg BIDWM DUNIA Administration Naproxen 500 mg 11/22/20 21:00 12/17/20 08:27 Naproxen 500 Mg Tablet PO 500 mg BID DUNIA Administration Oxcarbazepine 300 mg 11/22/20 21:00 12/17/20 08:27 Oxcarbazepine 300 Mg Tablet PO 300 mg BID DUNIA Administration Senna/Docusate Sodium 1 tab 12/01/20 21:00 12/16/20 20:42 Sennosides/Docusate Sodium Tablet PO 1 tab BEDTIME DUNIA Administration Simethicone 80 mg 11/21/20 17:00 12/17/20 08:27 Simethicone 80 Mg Tab.Chew PO 80 mg QIDWMHS DUNIA Administration Trazodone HCl 150 mg 12/03/20 21:00 12/16/20 20:42 Trazodone Hcl 50 Mg Tablet PO 150 mg BEDTIME DUNIA Administration Trolamine Salicylate/Aloe Vera 1 appl 12/08/20 21:10 12/17/20 08:28 Trolamine Salicylate 10%/Aloe Cream 35.4 Gm TOPICAL 1 appl BID DUNIA Administration Allergies Allergies Allergy/AdvReac Type Severity Reaction Status Date / Time No Known Allergies Allergy Verified 11/10/20 15:51 Assessment & Plan Assessment & Plan (1) Depression: Status: Acute Code(s): F32.9 - Major depressive disorder, single episode, unspecified (2) PTSD (post-traumatic stress disorder): Status: Acute Code(s): F43.10 - Post-traumatic stress disorder, unspecified (3) Diabetes: Status: Acute Code(s): E11.9 - Type 2 diabetes mellitus without complications (4) Ear pain: Status: Acute Code(s): H92.09 - Otalgia, unspecified ear Assessment and Plan: Bennett is a 65 year old male who presents with symptoms of depression, irritability, anxiety, flashbacks, hyperarousal, lack of sleep, perseverative thoughts, and nightmares. He was brought to [facility] following a verbal altercation with his in the context of ongoing marital issues, financial stress, housing instability, and lack of psychiatric treatment. He does not speak Kosovan and has language barriers living in [place] He has no past psychiatric treatment, [place] with his and three daughters. He has past [place], [place]. He has multiple co-morbid medical issues including insulin dependent diabetes, hx of head injury, and leg pain. He is currently accepting medication management for symptoms of PTSD and insomnia. Lexapro was started at [facility] ED. Collateral information from daughter- pt very irritable, explosive at times, threatening family Plan: 1. Continue on lexapro 10 mg QD for sx of PTSD and trazodone 50 mg QHS PRN for insomnia. Monitor response to medications. 2. Start trileptal 300mg po BID for mood stabilization given concerns of pt's hx of irritability, explosive behaviors. 3. SW will work on housing, legal issues- aftercare planning 4. Discharge on stabilization. Patient seen. Chart reviewed. Discussed with team. Continue discharge planning case reviewed with hospitalist service suggested foam dressings and wound consult Greater than 50% of the session was spent on counseling and/or coordination of care Reason for contiued inpatient stay Substantial Risk for: stable for discharge
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
[2020-12-16] MEDS: Milk of Magnesia 30 ML ORAL.SUSP PO (12:31)
[2020-12-16 17:42] LABS: Glucose, Whole Blood 176 mg/dL (60-115)
[2020-12-16 18:00] VITALS: BP 141/73; PULSE 103; RESP 18; TEMP 36.6; O2SAT 96
[2020-12-16] MEDS: traZODone HCL 50 MG TABLET 150 MG PO (20:42)
[2020-12-16] MEDS: Sennosides/Docusate Sodium TABLET 1 TAB PO (20:42)
[2020-12-17 06:00] VITALS: BP 134/76; PULSE 74; RESP 16; TEMP 36.7; O2SAT 98
--- NOTE | 2020-12-17 07:24 | PC.NURSE ---
pt complained of blurry vision stated started started in the evening last night. Unaware of cause VSS. Md notified. stated to monitor. Follow up with primary this am.
[2020-12-17 08:20] LABS: Glucose, Whole Blood 128 mg/dL (60-115)
[2020-12-17] MEDS: Acetaminophen 325 MG TABLET 650 MG PO ×2 (08:26→12:40)
[2020-12-17 08:27] VITALS: BP 134/76; PULSE 74
[2020-12-17] MEDS: Simethicone 80 MG TAB.CHEW PO ×2 (08:27→12:40)
[2020-12-17] MEDS: Escitalopram Oxalate 10 MG TABLET PO (08:27)
[2020-12-17] MEDS: NaPROXEN 500 MG TABLET PO (08:27)
[2020-12-17] MEDS: amLODIPine Besylate 2.5 MG TABLET PO (08:27)
[2020-12-17] MEDS: metFORMIN HCl 500 MG TABLET PO (08:27)
[2020-12-17] MEDS: OXcarbazepine 300 MG TABLET PO (08:27)
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
== END 2020-12-17 13:30 | disposition home or self-care (01) | DRG 751 ==
PROVIDERS: Registered Nurse; Admitting Provider Psychiatry & Neurology Psychiatry; PCP Nurse Practitioner Family; Visit Provider Social Worker
DX: F33.9 Major depressive disorder, recurrent, unspecified (principal); E11.649 Type 2 diabetes mellitus with hypoglycemia without coma; R45.850 Homicidal ideations; F43.12 Post-traumatic stress disorder, chronic; H92.01 Otalgia, right ear; G89.29 Other chronic pain; R29.6 Repeated falls; Z91.81 History of falling; Z79.1 Long term (current) use of non-steroidal anti-inflammatories (NSAID); Z79.84 Long term (current) use of oral hypoglycemic drugs; Z79.899 Other long term (current) drug therapy
CPT/HCPCS: 36415; 80048; 80053; 80061; 82565; 82607; 82947; 83036; 83605; 84439; 84443; 97161